=== PATIENT | female | born 1940 | race Caucasian/White ===

== ENCOUNTER 2016-04-13 08:07 | Outpatient (CLI) | payer MEDICARE | END 2016-04-13 08:08 | disposition home or self-care (01) | DX: R10.32 Left lower quadrant pain (principal); R06.00 Dyspnea, unspecified; J98.4 Other disorders of lung; Z87.891 Personal history of nicotine dependence; Z90.710 Acquired absence of both cervix and uterus ==

== ENCOUNTER 2016-04-18 08:25 | Outpatient (CLI) | payer MEDICARE | END 2016-04-18 08:26 | disposition home or self-care (01) | DX: E11.65 Type 2 diabetes mellitus with hyperglycemia (principal); Z79.899 Other long term (current) drug therapy ==

== ENCOUNTER 2016-07-29 09:50 | Outpatient (CLI) | payer MEDICARE | END 2016-07-29 23:59 | DX: E11.65 Type 2 diabetes mellitus with hyperglycemia (principal); Z79.899 Other long term (current) drug therapy; R10.84 Generalized abdominal pain ==

== ENCOUNTER 2016-09-26 07:04 | Day surgery (SDC) | payer MEDICARE ==
[2016-09-26] MEDS ORDERED: LACTATED RINGERS 1,000 ML IV ONE (07:40)
--- NOTE | 2016-09-26 08:49 | HISTORY & PHYSICAL EXAMINATION ---
HPI - History of Present Illness HPI Comment/Other: Visit Type: Initial Consult Primary Provider: Fela Vizcarra Patient is here for colonoscopy for change in bowel habits. Current Meds: CENTRUM SILVER ADULT 50+ ORAL TABS (MULTIPLE VITAMINS-MINERALS) Take 1 tab by mouth daily CALCIUM 600-D TABS (CALCIUM CARBONATE-VITAMIN D TABS) Take 1 tab by mouth daily METOPROLOL TARTRATE 25 MG ORAL TABS (METOPROLOL TARTRATE) Take 1 tab by mouth twice daily LISINOPRIL 20 MG ORAL TABS (LISINOPRIL) Take 1 tab by mouth daily CITALOPRAM HYDROBROMIDE 40 MG ORAL TABS (CITALOPRAM HYDROBROMIDE) Take 1 tab by mouth daily HYDROCHLOROTHIAZIDE 25 MG ORAL TABS (HYDROCHLOROTHIAZIDE) Take 1 tab by mouth daily HUMALOG 100 UNIT/ML SC SOCT (INSULIN LISPRO (HUMAN)) Inject 60 - 70 units sub q daily LANTUS 100 UNIT/ML SC SOLN (INSULIN GLARGINE) Inject 50 - 70 units sub q twice daily Allergies: Past Medical History: Reviewed history from 06/09/2014 and no changes required: hypercalcemia constipation urinary incontinence diabetes type 2 depression increased LFTs Hyperlipidemia Hypertension Shortness of Breath Past Surgical History: Reviewed history from 06/09/2014 and no changes required: hysterectomy Appendectomy Cholecystectomy Total Hip Arthroplasty Tonsillectomy Family History Summary: Reviewed history Last on 06/09/2014 and no changes required:08/12/2016 Mother () - Has Family History of Stroke/CVA - Entered On: 08/12/2016 Social History: Reviewed history and no changes required: Risk Factors: Smoked Tobacco Use: Former smoker Cigarettes: Yes Year quit: 1990 Years Since Last Quit: 26 Smokeless Tobacco Use: Never Passive smoke exposure: no Drug use: no Alcohol use: no Exercise: yes Review of Systems See HPI Physical Exam General: well developed, well nourished, in no acute distress Lungs: clear bilaterally to A & P Heart: regular rate and rhythm, S1, S2 without murmurs, rubs, gallops, or clicks Abdomen: bowel sounds positive; abdomen soft and non-tender without masses, organomegaly, or hernias noted Pulses: pulses normal in all 4 extremities Extremities: no clubbing, cyanosis, edema, or deformity noted with normal full range of motion of all joints Cervical Nodes: no significant adenopathy Psych: alert and cooperative; normal mood and affect; normal attention span and concentration Impression & Recommendations: Problem # 1: Change in bowel habits and abdominal pain Proceed with colonoscopy PMH/PSH - Past Medical History Cardiovascular: positive: Hypertension Respiratory: positive: Sleep apnea Neuro: positive: None Endocrine/Autoimmune: positive: Type 2 diabetes GI: positive: None 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 : positive: None HEENT: positive: Chronic vision loss, Other Psych: positive: Depression Musculoskeletal: positive: Osteoarthritis Derm: positive: None MRSA Hx?: No - Past Surgical History General: positive: Cholecystectomy, Appendectomy Ortho: positive: Hip replacement, Other /RENT AND MISCELLANEOUS REMITTANCE CLERK: positive: Hysterectomy HEENT: positive: Cataracts, Tonsil/Adenoidectomy Social & Family Hx - Social History Does the pt smoke?: No Smoking Status: Never smoker Does the pt drink ETOH?: No Does the pt have substance abuse?: No - POLST Patient has POLST: No POLST Status: Full Code Meds/Allgy - Home Medications Home Medications: Ambulatory Orders Medication Instructions Recorded Confirmed Citalopram Hydrobromide [Celexa] 60 mg PO DAILY 08/30/12 02/12/16 Hydrochlorothiazide 25 mg PO QAM 08/30/12 02/12/16 Insulin Glargine [Lantus Solostar] 45 unit SUBQ BID 08/30/12 02/12/16 Lisinopril 20 mg PO DAILY 08/30/12 02/12/16 Metoprolol Tartrate [Lopressor] 25 mg PO BID 08/30/12 02/12/16 Insulin Lispro [Humalog] 10 unit SQ TID 01/31/13 02/12/16 Multivitamin [Multivitamins] 1 each PO DAILY 02/12/16 02/12/16 Naproxen Sodium [Aleve] 2 PRN 09/26/16 - Allergies Allergies/Adverse Reactions: Allergies Allergy/AdvReac Type Severity Reaction Status Date / Time hydrocodone [Hydrocodone] Allergy Severe hysterical, Verified 08/30/12 14:39 wild Exam - Vital Signs Vital Signs: Vital Signs x48h Temp Pulse Resp BP Pulse Ox 09/26/16 07:16 36.4 C L 80 18 142/67 H 98 Results - Lab Results Other Lab Results: Lab Results x24hrs 09/26/16 Range/Units 07:40 POC Whole Bld Glucose 262 H (70 - 100) mg/dL
[2016-09-26] MEDS ORDERED: fentaNYL 100 MCG/2 ML VIAL IVP ONE (08:53)
[2016-09-26] MEDS ORDERED: MIDAZOLAM 2 MG/2 ML VIAL IVP ONE (08:53)
[2016-09-26 11:01] VITALS: BP 93/46
== END 2016-09-26 07:05 | disposition home or self-care (01) ==
LOC: SDS 07:04
PROVIDERS: ATTEND Surgery
PROC: 0DBP8ZZ Excision of Rectum, Via Natural or Artificial Opening Endoscopic (ICD-10-PCS; 2016-09-26)
PROC: 0DBN8ZZ Excision of Sigmoid Colon, Via Natural or Artificial Opening Endoscopic (ICD-10-PCS; 2016-09-26)
PROC: 0DBM8ZZ Excision of Descending Colon, Via Natural or Artificial Opening Endoscopic (ICD-10-PCS; principal; 2016-09-26 08:15)
DX: R10.9 Unspecified abdominal pain (principal); D12.5 Benign neoplasm of sigmoid colon; D12.4 Benign neoplasm of descending colon; K64.4 Residual hemorrhoidal skin tags; K64.8 Other hemorrhoids; K57.30 Diverticulosis of large intestine without perforation or abscess without bleeding; K62.1 Rectal polyp; E11.9 Type 2 diabetes mellitus without complications; I10 Essential (primary) hypertension; E78.5 Hyperlipidemia, unspecified; Z87.891 Personal history of nicotine dependence; G47.30 Sleep apnea, unspecified
CPT/HCPCS: 45380; 45385; J7120; 88305

== ENCOUNTER 2017-01-19 08:55 | Outpatient (CLI) | payer MEDICARE ==
[2017-01-19 17:58] LABS: BILIRUBIN,TOTAL 0.8 mg/dL (0.2-1.0); CALCIUM 9.9 mg/dL (8.5-10.3); CREATININE 1.1 mg/dL (0.4-1.0); POTASSIUM 4.5 mmol/L (3.5-5.0); TOTAL PROTEIN 7.7 g/dL (6.7-8.2)
[2017-01-19 18:11] LABS: HEMOGLOBIN A1C 1.44 g/dL
== END 2017-01-19 08:56 | disposition home or self-care (01) ==
LOC: LAB.R 08:55
PROVIDERS: ATTEND Physician Assistant Medical
DX: E11.65 Type 2 diabetes mellitus with hyperglycemia (principal); Z79.899 Other long term (current) drug therapy
CPT/HCPCS: 80053; 83036

== ENCOUNTER 2017-04-06 09:41 | Outpatient (CLI) | payer MEDICARE ==
--- NOTE | 2017-04-07 14:02 | XRAY Report ---
DATE OF SERVICE: 04/06/2017 TWO-VIEW CHEST: 04/06/2017 CLINICAL INDICATION: Upper respiratory infection, wheezing, diabetes. COMPARISON: Chest CT 04/13/2016, plain film 12/14/2013. FINDINGS: Frontal and lateral views of the chest demonstrate a normal cardiac silhouette. There are patchy infiltrates in the right upper lobe and right lower lobe, new from previous The lungs appear hyperinf lated, suggestive of air trapping. No effusion or pneumothorax is evident. IMPRESSION: Patchy right upper and right lower lobe infiltrates. Hyperinflation, compatible with ai r trapping. TD: 04/06/2017 11:12
== END 2017-04-06 09:42 | disposition home or self-care (01) ==
LOC: DI 09:41
PROVIDERS: ATTEND Physician Assistant Medical
DX: R91.8 Other nonspecific abnormal finding of lung field (principal)
CPT/HCPCS: 71020

== ENCOUNTER 2017-05-04 12:15 | Outpatient (CLI) | payer MEDICARE ==
[2017-05-04 17:52] LABS: BASOPHILS % (AUTO) 0.6 %; EOSINOPHILS # (AUTO) 0.2 10^3/uL (0.0-0.7); EOSINOPHILS % (AUTO) 2.2 %; LYMPHOCYTES # (AUTO) 1.4 10^3/uL (1.5-3.5); MEAN CORPUSCULAR HEMOGLOBIN 29.3 pg (27.0-31.0); MEAN CORPUSCULAR HGB CONC 33.4 g/dL (32.0-36.0); MEAN CORPUSCULAR VOLUME 87.7 fL (81.0-99.0); MEAN PLATELET VOLUME 10.8 fL (7.9-10.8); MONOCYTES # (AUTO) 0.6 10^3/uL (0.0-1.0); NEUTROPHILS # (AUTO) 5.7 10^3/uL (1.5-6.6); NEUTROPHILS % (AUTO) 71.2 %; PLT - PLATELET COUNT 190 10^3/uL (130-450); RED BLOOD COUNT 5.12 10^6/uL (4.20-5.40); RED CELL DISTRIBUTION WIDTH 13.5 % (12.0-15.0)
[2017-05-04 18:20] LABS: HB2 TOTAL 16.5 g/dL; HEMOGLOBIN A1C 1.34 g/dL; HEMOGLOBIN A1C % 9.6 % (4.6-6.2)
[2017-05-04 18:28] LABS: ALBUMIN 3.8 g/dL (3.2-5.5); ALBUMIN/GLOBULIN RATIO 1.1 (1.0-2.2); BILIRUBIN,TOTAL 0.7 mg/dL (0.2-1.0); CALCIUM 9.3 mg/dL (8.5-10.3); CREATININE 1.3 mg/dL (0.4-1.0); CRP - C-REACTIVE PROTEIN 3.1 mg/dL (0-1.0); TOTAL PROTEIN 7.2 g/dL (6.7-8.2)
== END 2017-05-04 12:16 | disposition home or self-care (01) ==
LOC: LAB.R 12:15
PROVIDERS: ATTEND Physician Assistant Medical
DX: E11.65 Type 2 diabetes mellitus with hyperglycemia (principal); Z79.899 Other long term (current) drug therapy; R10.84 Generalized abdominal pain
CPT/HCPCS: 80053; 83036; 85025; 85651; 86140

== ENCOUNTER 2017-05-17 13:38 | Outpatient (CLI) | payer MEDICARE ==
--- NOTE | 2017-05-17 16:52 | XRAY Report ---
TWO VIEW THORACIC SPINE: 05/17/2017 CLINICAL INDICATION: Chronic back pain. FINDINGS: Frontal and lateral views of the thoracic spine demonstrate mild degenerative disk disease. There is no evidence of compression fracture. No paraspinal hematoma is seen. IMPRESSION: MILD DEGENERATIVE DISK DISEASE. TD: 05/17/2017 16:50
--- NOTE | 2017-05-17 16:54 | XRAY Report ---
THREE VIEW LUMBAR SPINE: 05/17/2017 CLINICAL INDICATION: Low back pain. FINDINGS: AP, lateral, coned down views of the lumbar spine demonstrate degenerative disk and facet disease, worst at L4-L5. There is minimal degenerative anterolisthesis of L3 on L4 and L4 on L5. There is no evidence of compression fracture. Minimal degenerative levoscoliosis is noted. IMPRESSION: MODERATE DEGENERATIVE CHANGES, WITH DEGENERATIVE ANTEROLISTHESIS OF L3 ON L4 AND L4 ON L5. NO EVIDENCE OF FRACTURE. TD: 05/17/2017 16:52
== END 2017-05-17 13:39 | disposition home or self-care (01) ==
LOC: DI 13:38
PROVIDERS: ATTEND Physician Assistant Medical
DX: M51.36 Other intervertebral disc degeneration, lumbar region (principal); M47.896 Other spondylosis, lumbar region; M43.16 Spondylolisthesis, lumbar region; M51.34 Other intervertebral disc degeneration, thoracic region
CPT/HCPCS: 72070; 72100

== ENCOUNTER 2017-08-17 15:44 | Emergency (ER) | payer MEDICARE ==
--- NOTE | 2017-08-17 15:50 | ED Physician Documentation ---
PD HPI NECK PAIN - Stated complaint Stated Complaint: NECK/SHOULDER PX - History obtained from History obtained from: Patient - History of Present Illness Timing - details: Abrupt onset (awoke with pain in neck. No noted injury.), Still present Location: Mid, Lower, Left Quality: Pain, Sharp Associated symptoms: No: Fever, Weakness, Numbness Improves with: Rest Worsened by: Movement, Palpation Contributing factors: No: Lifting, Twisting, Trauma Similar symptoms before: Has not had sx before Recently seen: Not recently seen Review of Systems Constitutional: denies: Fever, Chills Nose: denies: Rhinorrhea / runny nose, Congestion Throat: denies: Sore throat Respiratory: denies: Cough Musculoskeletal: reports: Neck pain. 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 : None HEENT: Chronic vision loss, Other Psych: Depression Musculoskeletal: Osteoarthritis Derm: None - Past Surgical History Past Surgical History: Yes General: Cholecystectomy, Appendectomy Ortho: Hip replacement, Other /FORGE OPERATOR HELPER: Hysterectomy HEENT: Cataracts, Tonsil/Adenoidectomy - Present Medications Home Medications: Ambulatory Orders Medication Instructions Recorded Confirmed Hydrochlorothiazide 25 mg PO QAM 08/30/12 05/17/17 Insulin Glargine [Lantus Solostar] 45 unit SUBQ BID 08/30/12 05/17/17 Lisinopril 20 mg PO DAILY 08/30/12 05/17/17 Metoprolol Tartrate [Lopressor] 25 mg PO BID 08/30/12 05/17/17 Insulin Lispro [Humalog] 10 - 30 unit SQ TID 01/31/13 05/17/17 Multivitamin [Multivitamins] 1 each PO DAILY 02/12/16 05/17/17 Naproxen Sodium [Aleve] 2 tab PO Q6H PRN 09/26/16 05/17/17 Duloxetine HCl [Cymbalta] 60 mg PO DAILY 05/17/17 05/17/17 Methocarbamol [Robaxin] 500 mg PO Q6H PRN #25 tablet 08/17/17 Naproxen 375 mg PO BID #20 tablet 08/17/17 Oxycodone HCl/Acetaminophen 1 each PO Q6H PRN #20 tablet 08/17/17 [Percocet 5-325 mg Tablet] - Allergies Allergies/Adverse Reactions: Allergies Allergy/AdvReac Type Severity Reaction Status Date / Time hydrocodone [Hydrocodone] Allergy Severe hysterical, Verified 08/30/12 14:39 wild - Social History Does the pt smoke?: No Smoking Status: Never smoker Does the pt drink ETOH?: No Does the pt have substance abuse?: No - Immunizations Immunizations are current?: Yes Immunizations: TDAP current <10years - POLST Patient has POLST: No POLST Status: Full Code PD ED PE NORMAL - Vitals Vital signs reviewed: Yes - General General: Alert and oriented X 3, No acute distress, Well developed/nourished - HEENT HEENT: Ears normal, Pharynx benign - Neck Neck: Supple, no meningeal sign, No adenopathy, Other (left lateral neck and shoulder tenderness and pain in trapezius area. ) - Cardiac Cardiac: RRR, No murmur - Respiratory Respiratory: Clear bilaterally - Abdomen Abdomen: Soft, Non tender - Derm Derm: Normal color, Warm and dry, No rash - Neuro Neuro: Alert and oriented X 3, No motor deficit, No sensory deficit, Normal speech Results - Vitals Vitals: Vital Signs - 24 hr 08/17/17 08/17/17 15:48 17:09 Temperature 36 C L 36.2 C L Heart Rate 93 84 Respiratory 18 18 Rate Blood Pressure 130/86 H 110/58 L O2 Saturation 97 94 Oxygen O2 Source Room air PD MEDICAL DECISION MAKING - ED course Complexity details: considered differential (seems muscular. Tender to touch. No rash. ), d/w patient Departure - Departure Disposition: 01 Home, Self Care Clinical Impression: Acute strain of neck muscle Qualifiers: Encounter type: initial encounter Qualified Code(s): S16.1XXA - Strain of muscle, fascia and tendon at neck level, initial encounter Condition: Stable Record reviewed to determine appropriate education?: Yes Instructions: ED Neck Pain No Trauma Follow-Up: Fela Vizcarra PA-C [Primary Care Provider] - Prescriptions: Methocarbamol [Robaxin] 500 mg PO Q6H PRN #25 tablet PRN Reason: Spasms Naproxen 375 mg PO BID #20 tablet Oxycodone HCl/Acetaminophen [Percocet 5-325 mg Tablet] 1 each PO Q6H PRN #20 tablet PRN Reason: Pain Comments: The pain seems musculoskeletal with likely some nerve impingement. Use some naproxen or ibuprofen twice daily. Add Robaxin muscle relaxant and Percocet if needed for pain. Recheck if not improved over the next several days and return if other symptoms develop as well. Discharge Date/Time: 08/17/17 17:09
[2017-08-17] MEDS ORDERED: oxyCOD/ACETAMIN 5 MG/325 MG TABLET PO STA (16:35)
[2017-08-17] MEDS ORDERED: METHOCARBAMOL 500 MG TABLET PO STA (16:36)
[2017-08-17 17:11] VITALS: BP 110/58
== END 2017-08-17 17:09 | disposition home or self-care (01) ==
LOC: ED 15:44
DX: S16.1XXA Strain of muscle, fascia and tendon at neck level, initial encounter (principal); X58.XXXA Exposure to other specified factors, initial encounter; I10 Essential (primary) hypertension; E11.9 Type 2 diabetes mellitus without complications; M19.90 Unspecified osteoarthritis, unspecified site; Z79.4 Long term (current) use of insulin
CPT/HCPCS: 99283; A9270

== ENCOUNTER 2017-08-18 21:38 | Outpatient (CLI) | payer MEDICARE | END 2017-08-18 21:39 | disposition critical access hospital (66) | LOC: EMS 21:38 | PROVIDERS: ATTEND Surgery | DX: R41.0 Disorientation, unspecified (principal); R07.9 Chest pain, unspecified; R53.1 Weakness | CPT/HCPCS: A0425; A0429 ==

== ENCOUNTER 2017-08-18 21:46 | Emergency (ER) | payer MEDICARE ==
[2017-08-18] MEDS ORDERED: SODIUM CHLORIDE 0.9% 1,000 ML IV ONE (21:53)
[2017-08-18 22:06] LABS: BASOPHILS % (AUTO) 0.7 %; HGB - HEMOGLOBIN 14.7 g/dL (12.0-16.0); LYMPHOCYTES % (AUTO) 1.8 %; MEAN CORPUSCULAR HEMOGLOBIN 28.9 pg (27.0-31.0); MEAN CORPUSCULAR HGB CONC 33.2 g/dL (32.0-36.0); MEAN PLATELET VOLUME 9.5 fL (7.9-10.8); MONOCYTES % (AUTO) 4.6 %; NEUTROPHILS % (AUTO) 92.9 %; PLT - PLATELET COUNT 182 10^3/uL (130-450); RED BLOOD COUNT 5.07 10^6/uL (4.20-5.40); RED CELL DISTRIBUTION WIDTH 13.1 % (12.0-15.0)
[2017-08-18 22:11] LABS: ABNORMAL LYMPHS % (MANUAL) 0 %
[2017-08-18 22:20] LABS: INR 1.1 (0.8-1.2); PT - PROTHROMBIN TIME 12.5 secs (9.9-12.6)
[2017-08-18] MEDS ORDERED: IOPAMIDOL-300 100 ML VIAL ONE (22:20)
[2017-08-18 22:26] LABS: CALCIUM 9.8 mg/dL (8.5-10.3); CREATININE 1.1 mg/dL (0.4-1.0)
[2017-08-18 22:35] LABS: BAND NEUTROPHILS % (MANUAL) 16 %; DIFFERENTIAL COMMENT MANUAL DIFFERENTIAL; LYMPHOCYTES # (MANUAL) 0.2 10^3/uL (1.5-3.5); LYMPHOCYTES % (MANUAL) 1 %; MONOCYTES # (MANUAL) 0.3 10^3/uL (0.0-1.0); NEUTROPHILS # (MANUAL) 14.6 10^3/uL (1.5-6.6); NEUTROPHILS % (MANUAL) 81 %; PLATELET ESTIMATE, MANUAL NORMAL (130-450,000) (NORMAL); PLATELET MORPHOLOGY NORMAL APPEARANCE (NORMAL); RBC MORPHOLOGY (MULTIPLE) NORMAL APPEARANCE (NORMAL)
--- NOTE | 2017-08-18 22:44 | CT Report ---
EXAM: CT HEAD EXAM DATE: 08/18/2017 10:33 PM. CLINICAL HISTORY: L sided weakness. COMPARISON: Prior head CT 12/14/2013. TECHNIQUE: Multiaxial CT images were obtained from the foramen magnum to the vertex. Reformats: Coron al. IV contrast: None. In accordance with CT protocol optimization, one or more of the following dose reduction techniques w ere utilized for this exam: automated exposure control, adjustment of mA and/or KV based on patient s ize, or use of iterative reconstructive technique. FINDINGS: Parenchyma: No intraparenchymal hemorrhage. No evidence of mass, midline shift, or CT findings of inf arction. Emmanuel-white differentiation is distinct. Extraaxial Spaces: Normal for age. No subdural or epidural collections identified. Ventricles: Normal in size and position. Sinuses and Orbits: Imaged paranasal sinuses, orbits, and mastoids show no significant abnormality. Bones: No evidence of fracture or calvarial defect. Other: None. IMPRESSION: Normal head CT. [facility] The call report notification system was initiated by Dr. Alvin Romero at 22:39 hrs on 08/18/17. The above findings were discussed with Dr. Daugherty by Dr. Alvin Romero at 22:43 hrs on 08/18/17. Referring Provider Line: [phone] SITE ID: [id number]
[2017-08-19] MEDS ORDERED: SODIUM CHLORIDE 0.9% 1,000 ML IV ONE (00:02)
[2017-08-19] MEDS ORDERED: PIPERACILLIN/TAZOBACTAM 3.375 GM in SODIUM CHLORIDE 0.9% MINIBAG 100 ML IV STA (00:30)
[2017-08-19 00:31] LABS: BILIRUBIN,URINE NEGATIVE (NEGATIVE); GLUCOSE, URINE (UA) >=1000 mg/dL (NEGATIVE); KETONES,URINE (UA) 40 mg/dL (NEGATIVE); LEUKOCYTE ESTERASE, URINE NEGATIVE (NEGATIVE); NITRITE,URINE NEGATIVE (NEGATIVE); OCCULT BLOOD,URINE LARGE (NEGATIVE); PH,URINE 5.5 PH (5.0-7.5); PROTEIN,URINE 100 mg/dL (NEGATIVE); UROBILINOGEN,URINE 0.2 (NORMAL) E.U./dL (NORMAL)
[2017-08-19 00:33] LABS: CLARITY,URINE CLEAR (CLEAR)
[2017-08-19 00:38] LABS: BACTERIA,URINE Rare /HPF (None Seen); CASTS, URINE 11-25 Hyaline Casts /LPF; MUCUS,URINE Marked Strands; SQUAMOUS EPITHELIAL CELL,UR MOD Squamous (<= Few)
[2017-08-19] MEDS ORDERED: ACETAMINOPHEN 1,000 MG/100 ML 100 ML IV STA (00:41)
[2017-08-19] MEDS ORDERED: ACYCLOVIR INJ 500 MG in SODIUM CHLORIDE 0.9% 250 ML IV STA (01:02)
[2017-08-19] MEDS ORDERED: cefTRIAXone 2 GM VIAL IVP STA (01:02)
[2017-08-19] MEDS ORDERED: VANCOMYCIN INJ 2.5 GM in SODIUM CHLORIDE 0.9% 500 ML IV STA (01:03)
[2017-08-19] MEDS ORDERED: IOPAMIDOL-300 100 ML VIAL IVP ONE (01:05)
[2017-08-19 01:12] LABS: ALBUMIN 3.1 g/dL (3.2-5.5); ALBUMIN/GLOBULIN RATIO 0.8 (1.0-2.2); ALKALINE PHOSPHATASE 142 IU/L (42-121); ALT ALANINE AMINOTRANSFERASE 38 IU/L (10-60); AST ASPARTATE AMINOTRANSFERASE 34 IU/L (10-42); BILIRUBIN,TOTAL 1.7 mg/dL (0.2-1.0); BUN - BLOOD UREA NITROGEN 24 mg/dL (6-20); CALCIUM 9.2 mg/dL (8.5-10.3); CARBON DIOXIDE - CO2 22 mmol/L (21-32); CHLORIDE 92 mmol/L (101-111); GFR - MDRD 54 (>89); GLUCOSE 342 mg/dL (70-100); SODIUM 128 mmol/L (135-145); TOTAL PROTEIN 6.8 g/dL (6.7-8.2)
[2017-08-19 01:13] LABS: LIPASE < 10 U/L (22-51)
--- NOTE | 2017-08-19 01:19 | CT Preliminary Report ---
Exam: CT ABDOMEN W/O IMPRESSION: Atherosclerotic disease. No evidence of aneurysm. Stable peritoneal calcifications from 0 12/21/2015. [facility] SITE ID: [id number]
--- NOTE | 2017-08-19 01:19 | CT Report ---
EXAM: CT ABDOMEN EXAM DATE: 08/19/2017 12:07 AM. CLINICAL HISTORY: Pain COMPARISON: 12/21/2015. TECHNIQUE: Routine helical CT imaging was performed through the abdomen. IV contrast: None Enteric c ontrast: No. Reconstruction: Coronal and sagittal. In accordance with CT protocol optimization, one or more of the following dose reduction techniques w ere utilized for this exam: automated exposure control, adjustment of mA and/or KV based on patient s ize, or use of iterative reconstructive technique. FINDINGS: Lung Bases: Please see separate CT Liver: Incidental calcification in the medial left lobe. Gallbladder/Bile Ducts: Changes of cholecystectomy. No biliary dilatation. Spleen: Normal. Pancreas: Normal. Adrenal Glands: Normal. Kidneys: Contrast excretion from CT angiogram of the head and neck of the same day. Peritoneal Cavity/Bowel: Peritoneal calcifications appear stable. No bowel dilatation, free gas, or f ree fluid. The appendix is well visualized and normal. Vasculature: Atherosclerotic calcification. No aneurysm. Bones: No significant abnormality. Other: None. IMPRESSION: Atherosclerotic disease. No evidence of aneurysm. Stable peritoneal calcifications from 0 12/21/2015. [facility] Referring Provider Line: [phone] SITE ID: [id number]
--- NOTE | 2017-08-19 01:23 | CT Preliminary Report ---
Exam: CT CHEST W/O IMPRESSION: Stable pulmonary nodules from 04/13/2016. Mild atherosclerotic calcifications. Farzaneh [facility] SITE ID: [id number]
--- NOTE | 2017-08-19 01:23 | CT Report ---
EXAM: CT CHEST EXAM DATE: 08/19/2017 12:11 AM. CLINICAL HISTORY: Chest pain abd pain L sided weakness. COMPARISONS: 04/13/2016. TECHNIQUE: Routine helical CT imaging was performed through the chest. IV contrast: None. Reconstruct ions: Coronal and sagittal. In accordance with CT protocol optimization, one or more of the following dose reduction techniques w ere utilized for this exam: automated exposure control, adjustment of mA and/or KV based on patient s ize, or use of iterative reconstructive technique. FINDINGS: Lungs/Pleura: Stable pulmonary nodules, measuring up to 6 mm in the right middle lobe and left lower lobe. No focal consolidation, effusion, or pneumothorax. Mediastinum: Mild atherosclerotic calcification. No adenopathy. Bones: Degenerative changes. Visualized Abdomen: Please see separate CT. Other: None. IMPRESSION: Stable pulmonary nodules from 04/13/2016. Mild atherosclerotic calcifications. No aneurys mJuice [facility] Referring Provider Line: [phone] SITE ID: [id number]
--- NOTE | 2017-08-19 01:42 | ED Physician Documentation ---
PD HPI ALTERED MENTAL STATUS - Stated complaint Stated Complaint: CP/ABD PAIN - Chief complaint Chief Complaint: Cardiac - History obtained from History obtained from: Family, EMS - History of Present Illness Timing - onset: Yesterday Timing - details: Gradual onset, Still present Quality / character: Less responsive, Confused Associated symptoms: Fever, Focal weakness Contributing factors: Cancer, Recent illness. 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 According to ems, family and previous notes patient was seen in the emergency department two days prior for neck pain. Patient was sent home with some medications. When the patient's son's came to visit her today patient was found to be altered. She was last seen normal the day before by the neighbors who also might have given her edible thc. EMS was called. While enroute patient had some possible facial droop and continued to complain of pain and weakness. Imaging was empirically ordered. My initial evaluation of the patient occurred after imaging. Upon my initial evaluation patient was slightly altered but was alert and oriented with no focal deficits. Patient was warm to touch, was tachypneaic and tachycardic. 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 : None HEENT: Chronic vision loss, Other Psych: Depression Musculoskeletal: Osteoarthritis Derm: None - Past Surgical History Past Surgical History: Yes General: Cholecystectomy, Appendectomy Ortho: Hip replacement, Other /[employer]MENT: Hysterectomy HEENT: Cataracts, Tonsil/Adenoidectomy - Present Medications Home Medications: Ambulatory Orders Medication Instructions Recorded Confirmed Hydrochlorothiazide 25 mg PO QAM 08/30/12 05/17/17 Insulin Glargine [Lantus Solostar] 45 unit SUBQ BID 08/30/12 05/17/17 Lisinopril 20 mg PO DAILY 08/30/12 05/17/17 Metoprolol Tartrate [Lopressor] 25 mg PO BID 08/30/12 05/17/17 Insulin Lispro [Humalog] 10 - 30 unit SQ TID 01/31/13 05/17/17 Multivitamin [Multivitamins] 1 each PO DAILY 02/12/16 05/17/17 Naproxen Sodium [Aleve] 2 tab PO Q6H PRN 09/26/16 05/17/17 Duloxetine HCl [Cymbalta] 60 mg PO DAILY 05/17/17 05/17/17 Methocarbamol [Robaxin] 500 mg PO Q6H PRN #25 tablet 08/17/17 Naproxen 375 mg PO BID #20 tablet 08/17/17 Oxycodone HCl/Acetaminophen 1 each PO Q6H PRN #20 tablet 08/17/17 [Percocet 5-325 mg Tablet] - Allergies Allergies/Adverse Reactions: Allergies Allergy/AdvReac Type Severity Reaction Status Date / Time hydrocodone [Hydrocodone] Allergy Severe hysterical, Verified 08/30/12 14:39 wild - Social History Does the pt smoke?: No Smoking Status: Never smoker Does the pt drink ETOH?: No Does the pt have substance abuse?: No - Immunizations Immunizations are current?: Yes Immunizations: TDAP current <10years - POLST Patient has POLST: No POLST Status: Full Code PD ED PE NORMAL - Vitals Vital signs reviewed: Yes - HEENT HEENT: Atraumatic - Neuro Eye Opening: Spontaneous Motor: Obeys Commands Verbal: Confused GCS Score: 14 PD ED PE EXPANDED - HEENT HEENT: Pupils unequal, Dry mucous membranes. No: Gaze palsy, Nasal congestion - Cardiac Cardiac: Tachy - Respiratory Respiratory: Retractions, Decreased breath sounds - Abdomen Abdomen: Tender to palpation, Other (obese). No: Rebound, Guarding - Derm Derm: Warm and dry. No: Rash - Neuro Neuro: Alert and Oriented X 3, Confused, Normal motor, Normal Sensation, Normal Speech, CNII-XII intact. No: Weakness, Dyscongugate gaze, Nystagmus Results - Vitals Vitals: Vital Signs - 24 hr 08/18/17 08/18/17 08/19/17 21:50 23:32 00:01 Temperature 36.0 C L 37.8 C H Heart Rate 115 H 102 H Respiratory 36 H 25 H Rate Blood Pressure 169/84 H 154/69 H O2 Saturation 98 100 08/19/17 00:26 Temperature Heart Rate 104 H Respiratory 22 Rate Blood Pressure 156/82 H O2 Saturation 100 Oxygen O2 Source Room air - EKG (time done) 7239 Rate: Rate (enter#) (111) Rhythm: Sinus tachycardia [place]: Normal Intervals: Normal MT Ischemia: Q waves, Other (mild st segment elevation in III) Other comments: Other comments (st elevation unchanged from 2014) Compare to prior EKG: Unchanged from prior EKG 7123 Rate: Rate (enter#) (101) Rhythm: Sinus tachycardia [place]: Normal Ischemia: Q waves Compare to prior EKG: Unchanged from prior EKG - Labs Labs: Laboratory Tests 08/18/17 08/18/17 08/18/17 21:55 21:55 21:55 WBC 15.0 H RBC 5.07 Hgb 14.7 Hct 44.1 MCV 87.0 MCH 28.9 MCHC 33.2 RDW 13.1 Plt Count 182 MPV 9.5 Neut # Not Reportable Lymph # Not Reportable [place] # Not Reportable Eos # Not Reportable Baso # Not Reportable Absolute Nucleated RBC Not Reportable Total Counted 100 Band Neuts % (Manual) 16 H Abnorm Lymph % (Manual) 0 Nucleated RBC % Not Reportable Neutrophils # (Manual) 14.6 H Lymphocytes # (Manual) 0.2 L Monocytes # (Manual) 0.3 Eosinophils # (Manual) 0.0 Basophils # (Manual) 0.0 Differential Comment MANUAL DIFFERENTIAL Platelet Estimate NORMAL (130-450,000) Platelet Morphology NORMAL APPEARANCE RBC Morph Micro Appear NORMAL APPEARANCE PT INR APTT Sodium 128 L Potassium 4.3 Chloride 91 L Carbon Dioxide 23 Anion Gap 14.0 H BUN 24 H Creatinine 1.1 H Estimated GFR (MDRD) 48 L Glucose 369 H Lactic Acid Calcium 9.8 Total Bilirubin AST ALT Alkaline Phosphatase Troponin I 0.43 B-Natriuretic Peptide Total Protein Albumin Globulin Albumin/Globulin Ratio Lipase Urine Color Urine Clarity Urine pH Ur Specific [place] Urine Protein Urine Glucose (UA) Urine Ketones Urine Occult Blood Urine Nitrite Urine Bilirubin Urine Urobilinogen Ur Leukocyte Esterase Urine RBC Urine WBC Ur Squamous Epith Cells Urine Bacteria Urine Casts Urine Mucus Ur Microscopic Review Urine Culture Comments 08/18/17 08/18/17 08/18/17 21:55 23:55 23:55 WBC RBC Hgb Hct MCV MCH MCHC RDW Plt Count MPV Neut # Lymph # [place] # Eos # Baso # Absolute Nucleated RBC Total Counted Band Neuts % (Manual) Abnorm Lymph % (Manual) Nucleated RBC % Neutrophils # (Manual) Lymphocytes # (Manual) Monocytes # (Manual) Eosinophils # (Manual) Basophils # (Manual) Differential Comment Platelet Estimate Platelet Morphology RBC Morph Micro Appear PT 12.5 INR 1.1 APTT 24.4 L Sodium Potassium Chloride Carbon Dioxide Anion Gap BUN Creatinine Estimated GFR (MDRD) Glucose Lactic Acid 1.7 Calcium Total Bilirubin AST ALT Alkaline Phosphatase Troponin I 0.50 H* B-Natriuretic Peptide Total Protein Albumin Globulin Albumin/Globulin Ratio Lipase Urine Color Urine Clarity Urine pH Ur Specific [place] Urine Protein Urine Glucose (UA) Urine Ketones Urine Occult Blood Urine Nitrite Urine Bilirubin Urine Urobilinogen Ur Leukocyte Esterase Urine RBC Urine WBC Ur Squamous Epith Cells Urine Bacteria Urine Casts Urine Mucus Ur Microscopic Review Urine Culture Comments 08/19/17 08/19/17 08/19/17 00:22 00:34 01:00 WBC RBC Hgb Hct MCV MCH MCHC RDW Plt Count MPV Neut # Lymph # [place] # Eos # Baso # Absolute Nucleated RBC Total Counted Band Neuts % (Manual) Abnorm Lymph % (Manual) Nucleated RBC % Neutrophils # (Manual) Lymphocytes # (Manual) Monocytes # (Manual) Eosinophils # (Manual) Basophils # (Manual) Differential Comment Platelet Estimate Platelet Morphology RBC Morph Micro Appear PT INR APTT Sodium 128 L Potassium 4.3 Chloride 92 L Carbon Dioxide 22 Anion Gap 14.0 H BUN 24 H Creatinine 1.0 Estimated GFR (MDRD) 54 L Glucose 342 H Lactic Acid Calcium 9.2 Total Bilirubin 1.7 H AST 34 ALT 38 Alkaline Phosphatase 142 H Troponin I B-Natriuretic Peptide 353 H Total Protein 6.8 Albumin 3.1 L Globulin 3.7 Albumin/Globulin Ratio 0.8 L Lipase < 10 L Urine Color YELLOW Urine Clarity CLEAR Urine pH 5.5 Ur Specific [place] 1.020 Urine Protein 100 H Urine Glucose (UA) >=1000 H Urine Ketones 40 H Urine Occult Blood LARGE H Urine Nitrite NEGATIVE Urine Bilirubin NEGATIVE Urine Urobilinogen 0.2 (NORMAL) Ur Leukocyte Esterase NEGATIVE Urine RBC 11-25 H Urine WBC 0-3 Ur Squamous Epith Cells MOD Squamous H Urine Bacteria Rare Urine Casts 11-25 Hyaline Casts Urine Mucus Marked Strands Ur Microscopic Review INDICATED Urine Culture Comments NOT INDICATED - Rads (name of study) ct head Radiology: Final report received (normal) ct angio chest Radiology: Final report received (no dissection, no pe) ct abd pelvis Radiology: Final report received (no acute abno) ct angio head and neck Radiology: Final report received (normal) PD MEDICAL DECISION MAKING - ED course Complexity details: reviewed old records, reviewed results, re-evaluated patient , considered differential, d/w patient, d/w family, d/w medical cost consultant ED course: Patient was seen and examined at bedside. Patient was quickly evaluated by another physician and imaging was ordered for risk of cva. I evaluated the patient when she come back from imaging. ekg had been performed and there were borderline ekg elevations in lead III but they were unchanged from previous. Patient was tachycardic and warm to the touch. Patient had a leukocytosis and a bandemia. Cultures were ordered as well as lactic acid. and urine was collected. Patient was empirically started on zosyn and IV fluids. Patient's repeat ekg was performed and was unchanged but patient's troponin was elevated from 0.43 to 0.5. Likely secondary to infection and increased cardiac workload. Patient required a higher level of care. Case was discussed eventually with Dr. Burnett at [facility] in [place]. he recommended coverage for meningitis but to hold off on heparin drip at this point. Vanco, rocephin and acyclovir were added. Patient had responded well to the therapy and stated that she was feeling much better. An attempt at LP was not performed based on patient's body habitus and it would be performed and [facility]. Arrangements were made for transfer and patient was transferred in stable condition. Departure - Departure Disposition: 02 Transfer Acute Care Hosp Clinical Impression: Bandemia, NSTEMI (non-ST elevated myocardial infarction) Condition: Stable
[2017-08-19] MEDS ORDERED: VANCOMYCIN 1 GM VIAL ONE (01:49)
--- NOTE | 2017-08-19 02:09 | CT Report ---
EXAM: PLEASE LINK THIS TO EXAM 11/NUMBER [id number] EXAM DATE: 08/19/2017 01:00 AM. CLINICAL HISTORY: L sided weakness. COMPARISON: None. TECHNIQUE: In accordance with CT protocol optimization, one or more of the following dose reduction techniques w ere utilized for this exam: automated exposure control, adjustment of mA and/or KV based on patient s ize, or use of iterative reconstructive technique. FINDINGS: IMPRESSION: RAD[facility] Referring Provider Line: [phone] SITE ID: [id number]
--- NOTE | 2017-08-19 02:09 | CT Preliminary Report ---
Exam: CT NECK ANGIO IMPRESSION: 1. No acute interval change since the brain CT from earlier today. 2. No abnormal brain parenchymal enhancement. 3. Patent dural venous sinuses. 4. Patent intracranial and extracranial arteries without evidence of aneurysm, AVM, or critical steno sis. RADIA SITE ID: [id number]
--- NOTE | 2017-08-19 02:16 | CT Report ---
EXAM: CT ANGIOGRAM HEAD AND NECK CT SCAN HEAD WITHOUT AND WITH CONTRAST EXAM DATE:08/19/2017 01:01 AM. CLINICAL HISTORY:Left-sided weakness. COMPARISON:Brain CT from earlier today. TECHNIQUE: Routine axial helical CTA imaging was performed from the aortic arch through the [place]. Routine axial CT imaging of the head was performed prior to and following contrast administr ation. Reconstructions: Routine multiplanar 3D MIP reconstructions. IV contrast: 80 mL Isovue 300. NASCET Criteria are used for stenosis measurements. In accordance with CT protocol optimization, one or more of the following dose reduction techniques w ere utilized for this exam: automated exposure control, adjustment of mA and/or KV based on patient s ize, or use of iterative reconstructive technique. FINDINGS: CT Scan Head: On the noncontrast brain CT images, no acute interval change has occurred since the brain CT from [facility] today. No abnormal brain parenchymal enhancement is appreciated on postcontrast images. CT Angiogram Extracranial Circulation: Mild calcified plaque is noted at the aortic arch. No high-grade stenosis of the great vessel origins is seen. Right Carotid: The common, internal, and external carotid arteries are patent. Mild calcified plaque is noted at the carotid bifurcation without hemodynamically significant stenosis. Left Carotid: The common, internal, and external carotid arteries are patent. Mild noncalcified plaqu e is noted at the carotid bifurcation without hemodynamically significant stenosis. Vertebrals: The vertebral artery origins are patent. The vertebral arteries are codominant and demons trate no hemodynamically significant stenosis in their cervical courses. CT Angiogram Intracranial Circulation: The internal carotid arteries are patent from the superior cervical to the supraclinoid portions. The re is mild calcified plaque in the right carotid siphon without high-grade stenosis. The bilateral A1 , A2, M1, and m2 segments are patent. In the posterior circulation, the bilateral V4 segments are patent. There is a right AICA/PICA varian t. The left PICA is well demonstrated. The basilar artery is widely patent throughout its course to t he terminus. There is normal contrast opacification in the superior cerebellar and posterior cerebral arteries. Posterior communicating arteries are not seen. The dural venous sinuses are patent. Other: The visualized upper lungs are clear. The airway is patent. Moderate degenerative changes are present throughout the cervical spine. No acute abnormality is seen in the soft tissues of the neck. IMPRESSION: 1. No acute interval change since the brain CT from earlier today. 2. No abnormal brain parenchymal enhancement. 3. Patent dural venous sinuses. 4. Patent intracranial and extracranial arteries without evidence of aneurysm, AVM, or critical steno sis. RADIA Referring Provider Line: [phone] SITE ID: [id number]
[2017-08-19 02:46] VITALS: BP 119/53
== END 2017-08-19 02:51 | disposition short-term general hospital (02) ==
LOC: ED 21:46
DX: I21.4 Non-ST elevation (NSTEMI) myocardial infarction (principal); D72.825 Bandemia; C43.9 Malignant melanoma of skin, unspecified; I10 Essential (primary) hypertension; E11.9 Type 2 diabetes mellitus without complications; Z79.4 Long term (current) use of insulin; M19.90 Unspecified osteoarthritis, unspecified site
CPT/HCPCS: 36415; 51702; 70450; 70496; 70498; 71250; 74150; 80048; 80053; 81001; 83605; 83690; 83880; 84484; 85025; 85610; 85730; 87040; 87181; 93005; 96361; 96365; 96367; 96368; 96375; 99285; J0131; J0133; J3370; Q9967; 80074; 81003; 86803; 87086; 87340; 87389

== ENCOUNTER 2017-08-19 02:38 | Outpatient (CLI) | payer MEDICARE | END 2017-08-19 02:39 | disposition short-term general hospital (02) | LOC: EMS 02:38 | PROVIDERS: ATTEND Surgery | DX: D72.825 Bandemia (principal); R79.89 Other specified abnormal findings of blood chemistry | CPT/HCPCS: A0425; A0426 ==

== ENCOUNTER 2017-08-31 20:30 | Outpatient (CLI) | payer MEDICARE ==
[2017-08-31 22:45] LABS: BASOPHILS % (AUTO) 0.4 %; EOSINOPHILS # (AUTO) 0.1 10^3/uL (0.0-0.7); EOSINOPHILS % (AUTO) 1.1 %; HGB - HEMOGLOBIN 11.4 g/dL (12.0-16.0); LYMPHOCYTES # (AUTO) 1.1 10^3/uL (1.5-3.5); MEAN CORPUSCULAR HEMOGLOBIN 28.9 pg (27.0-31.0); MEAN CORPUSCULAR HGB CONC 32.9 g/dL (32.0-36.0); MEAN CORPUSCULAR VOLUME 87.8 fL (81.0-99.0); MEAN PLATELET VOLUME 9.4 fL (7.9-10.8); MONOCYTES # (AUTO) 0.8 10^3/uL (0.0-1.0); MONOCYTES % (AUTO) 7.5 %; NEUTROPHILS # (AUTO) 8.9 10^3/uL (1.5-6.6); PLT - PLATELET COUNT 325 10^3/uL (130-450); RED BLOOD COUNT 3.94 10^6/uL (4.20-5.40); RED CELL DISTRIBUTION WIDTH 13.5 % (12.0-15.0)
[2017-08-31 23:03] LABS: ALBUMIN 3.1 g/dL (3.2-5.5); ALBUMIN/GLOBULIN RATIO 0.8 (1.0-2.2); BILIRUBIN,TOTAL 0.4 mg/dL (0.2-1.0); CALCIUM 9.3 mg/dL (8.5-10.3); TOTAL PROTEIN 7.2 g/dL (6.7-8.2)
== END 2017-08-31 20:31 | disposition home or self-care (01) ==
LOC: LAB.R 20:30
DX: G06.2 Extradural and subdural abscess, unspecified (principal); R78.81 Bacteremia
CPT/HCPCS: 80053; 85025

== ENCOUNTER 2017-09-05 08:00 | Outpatient (CLI) | payer MEDICARE ==
[2017-09-05 20:28] LABS: CALCIUM 9.1 mg/dL (8.5-10.3); CREATININE 1.1 mg/dL (0.4-1.0)
== END 2017-09-05 08:01 | disposition home or self-care (01) ==
LOC: LAB.R 08:00
DX: N17.9 Acute kidney failure, unspecified (principal)
CPT/HCPCS: 80048

== ENCOUNTER 2017-09-12 08:00 | Outpatient (CLI) | payer MEDICARE ==
[2017-09-12 22:01] LABS: BASOPHILS # (AUTO) 0.1 10^3/uL (0.0-0.1); BASOPHILS % (AUTO) 1.3 %; EOSINOPHILS # (AUTO) 0.3 10^3/uL (0.0-0.7); EOSINOPHILS % (AUTO) 5.8 %; HGB - HEMOGLOBIN 9.9 g/dL (12.0-16.0); LYMPHOCYTES % (AUTO) 18.8 %; MEAN CORPUSCULAR HEMOGLOBIN 29.3 pg (27.0-31.0); MEAN CORPUSCULAR HGB CONC 33.8 g/dL (32.0-36.0); MEAN CORPUSCULAR VOLUME 86.7 fL (81.0-99.0); MEAN PLATELET VOLUME 9.5 fL (7.9-10.8); MONOCYTES # (AUTO) 0.6 10^3/uL (0.0-1.0); MONOCYTES % (AUTO) 12.1 %; NEUTROPHILS # (AUTO) 3.2 10^3/uL (1.5-6.6); PLT - PLATELET COUNT 228 10^3/uL (130-450); RED BLOOD COUNT 3.39 10^6/uL (4.20-5.40); RED CELL DISTRIBUTION WIDTH 13.7 % (12.0-15.0); WHITE BLOOD COUNT 5.2 x10^3/uL (4.8-10.8)
== END 2017-09-12 08:01 | disposition home or self-care (01) ==
LOC: LAB.R 08:00
DX: G06.2 Extradural and subdural abscess, unspecified (principal)
CPT/HCPCS: 85025

== ENCOUNTER 2017-09-12 08:00 | Outpatient (CLI) | payer MEDICARE ==
[2017-09-13 01:35] LABS: BILIRUBIN,URINE NEGATIVE (NEGATIVE); GLUCOSE, URINE (UA) NEGATIVE (NEGATIVE); KETONES,URINE (UA) NEGATIVE (NEGATIVE); LEUKOCYTE ESTERASE, URINE NEGATIVE (NEGATIVE); NITRITE,URINE NEGATIVE (NEGATIVE); OCCULT BLOOD,URINE NEGATIVE (NEGATIVE); PROTEIN,URINE 30 mg/dL (NEGATIVE); UROBILINOGEN,URINE 0.2 (NORMAL) E.U./dL (NORMAL)
[2017-09-13 01:40] LABS: CLARITY,URINE CLEAR (CLEAR)
[2017-09-13 01:43] LABS: BACTERIA,URINE Rare /HPF (None Seen); RBC,URINE 0-5 /HPF (0-5); SQUAMOUS EPITHELIAL CELL,UR FEW Squamous (<= Few); YEAST,URINE PRESENT
== END 2017-09-12 23:59 ==
LOC: LAB 08:00
DX: R78.81 Bacteremia (principal); G06.2 Extradural and subdural abscess, unspecified
CPT/HCPCS: 81001; 81003; 85025

== ENCOUNTER 2017-10-02 10:55 | Outpatient (CLI) | END 2017-10-02 10:56 | disposition home or self-care (01) ==

== ENCOUNTER 2017-10-03 13:20 | Outpatient (CLI) | payer MEDICARE | END 2017-10-03 13:21 | disposition home or self-care (01) | LOC: LAB.R 13:20 | DX: R79.82 Elevated C-reactive protein (CRP) (principal); R70.0 Elevated erythrocyte sedimentation rate | CPT/HCPCS: 85651; 86140 ==

== ENCOUNTER 2017-11-30 15:02 | Outpatient (CLI) | payer MEDICARE ==
[2017-11-30 17:02] LABS: BASOPHILS # (AUTO) 0.1 10^3/uL (0.0-0.1); BASOPHILS % (AUTO) 0.9 %; EOSINOPHILS # (AUTO) 0.2 10^3/uL (0.0-0.7); HGB - HEMOGLOBIN 12.9 g/dL (12.0-16.0); LYMPHOCYTES # (AUTO) 1.5 10^3/uL (1.5-3.5); LYMPHOCYTES % (AUTO) 19.3 %; MEAN CORPUSCULAR HEMOGLOBIN 28.5 pg (27.0-31.0); MEAN CORPUSCULAR HGB CONC 33.4 g/dL (32.0-36.0); MEAN CORPUSCULAR VOLUME 85.2 fL (81.0-99.0); MEAN PLATELET VOLUME 10.8 fL (7.9-10.8); MONOCYTES # (AUTO) 0.7 10^3/uL (0.0-1.0); MONOCYTES % (AUTO) 8.3 %; NEUTROPHILS # (AUTO) 5.4 10^3/uL (1.5-6.6); NEUTROPHILS % (AUTO) 68.5 %; PLT - PLATELET COUNT 240 10^3/uL (130-450); RED BLOOD COUNT 4.55 10^6/uL (4.20-5.40); RED CELL DISTRIBUTION WIDTH 14.4 % (12.0-15.0); WHITE BLOOD COUNT 7.9 x10^3/uL (4.8-10.8)
[2017-11-30 17:14] LABS: ALBUMIN 3.9 g/dL (3.2-5.5); ALBUMIN/GLOBULIN RATIO 1.1 (1.0-2.2); BILIRUBIN,TOTAL 0.7 mg/dL (0.2-1.0); CALCIUM 9.7 mg/dL (8.5-10.3); CREATININE 1.2 mg/dL (0.4-1.0); TOTAL PROTEIN 7.4 g/dL (6.7-8.2)
[2017-11-30 20:53] LABS: HB2 TOTAL 13.7 g/dL; HEMOGLOBIN A1C 0.81 g/dL; HEMOGLOBIN A1C % 7.6 % (4.6-6.2)
== END 2017-11-30 15:03 | disposition home or self-care (01) ==
LOC: LAB.R 15:02
PROVIDERS: ATTEND Physician Assistant Medical
DX: R30.0 Dysuria (principal); F41.9 Anxiety disorder, unspecified; F32.9 Major depressive disorder, single episode, unspecified; Z79.899 Other long term (current) drug therapy; E11.65 Type 2 diabetes mellitus with hyperglycemia
CPT/HCPCS: 80053; 83036; 84443; 85025; 87086

== ENCOUNTER 2017-12-26 13:03 | Outpatient (CLI) | payer MEDICARE | END 2017-12-26 13:04 | disposition home or self-care (01) | LOC: RT 13:03 | PROVIDERS: ATTEND Physician Assistant Medical | DX: R06.00 Dyspnea, unspecified (principal) | CPT/HCPCS: 94010 ==

== ENCOUNTER 2018-02-06 14:22 | Outpatient (CLI) | payer MEDICARE ==
[2018-02-06 15:47] LABS: BASOPHILS # (AUTO) 0.1 10^3/uL (0.0-0.1); EOSINOPHILS # (AUTO) 0.2 10^3/uL (0.0-0.7); EOSINOPHILS % (AUTO) 3.1 %; HGB - HEMOGLOBIN 12.9 g/dL (12.0-16.0); LYMPHOCYTES # (AUTO) 1.2 10^3/uL (1.5-3.5); LYMPHOCYTES % (AUTO) 16.3 %; MEAN CORPUSCULAR HEMOGLOBIN 28.9 pg (27.0-31.0); MEAN CORPUSCULAR HGB CONC 33.9 g/dL (32.0-36.0); MEAN CORPUSCULAR VOLUME 85.3 fL (81.0-99.0); MEAN PLATELET VOLUME 11.5 fL (7.9-10.8); MONOCYTES # (AUTO) 0.5 10^3/uL (0.0-1.0); NEUTROPHILS # (AUTO) 5.3 10^3/uL (1.5-6.6); NEUTROPHILS % (AUTO) 72.6 %; PLT - PLATELET COUNT 221 10^3/uL (130-450); RED BLOOD COUNT 4.47 10^6/uL (4.20-5.40); RED CELL DISTRIBUTION WIDTH 13.5 % (12.0-15.0); WHITE BLOOD COUNT 7.3 x10^3/uL (4.8-10.8)
[2018-02-06 15:56] LABS: ALBUMIN 3.8 g/dL (3.2-5.5); ALBUMIN/GLOBULIN RATIO 1.1 (1.0-2.2); BILIRUBIN,TOTAL 0.8 mg/dL (0.2-1.0); CALCIUM 9.3 mg/dL (8.5-10.3); CREATININE 1.6 mg/dL (0.4-1.0); TOTAL PROTEIN 7.3 g/dL (6.7-8.2)
== END 2018-02-06 14:23 | disposition home or self-care (01) ==
LOC: LAB.R 14:22
PROVIDERS: ATTEND Internal Medicine
DX: R10.9 Unspecified abdominal pain (principal); I50.9 Heart failure, unspecified
CPT/HCPCS: 80053; 83880; 85025

== ENCOUNTER 2018-02-14 10:55 | Outpatient (CLI) | payer MEDICARE | END 2018-02-14 10:56 | LOC: LAB.R 10:55 | PROVIDERS: ATTEND Nurse Practitioner Primary Care | DX: N30.00 Acute cystitis without hematuria (principal) | CPT/HCPCS: 87086 ==

== ENCOUNTER 2018-02-23 09:07 | Outpatient (CLI) | payer MEDICARE ==
[2018-02-23 12:09] LABS: ALBUMIN 4.1 g/dL (3.2-5.5); ALBUMIN/GLOBULIN RATIO 1.1 (1.0-2.2); BILIRUBIN,TOTAL 0.7 mg/dL (0.2-1.0); CALCIUM 9.7 mg/dL (8.5-10.3); CREATININE 1.1 mg/dL (0.4-1.0); TOTAL PROTEIN 7.8 g/dL (6.7-8.2)
== END 2018-02-23 09:08 | disposition home or self-care (01) ==
LOC: LAB.R 09:07
PROVIDERS: ATTEND Physician Assistant Medical
DX: N30.00 Acute cystitis without hematuria (principal); N18.9 Chronic kidney disease, unspecified; I10 Essential (primary) hypertension
CPT/HCPCS: 80053; 87086

== ENCOUNTER 2018-03-08 08:00 | Outpatient (CLI) | payer MEDICARE ==
[2018-03-08 17:05] LABS: CALCIUM 9.7 mg/dL (8.5-10.3); CREATININE 1.1 mg/dL (0.4-1.0)
== END 2018-03-08 23:59 | disposition home or self-care (01) ==
LOC: LAB.R 08:00
PROVIDERS: ATTEND Nurse Practitioner Primary Care
DX: R53.83 Other fatigue (principal)
CPT/HCPCS: 80048

== ENCOUNTER 2018-05-16 08:00 | Outpatient (CLI) | payer MEDICARE ==
[2018-05-16 12:39] LABS: BASOPHILS # (AUTO) 0.1 10^3/uL (0.0-0.1); BASOPHILS % (AUTO) 1.3 %; EOSINOPHILS # (AUTO) 0.2 10^3/uL (0.0-0.7); EOSINOPHILS % (AUTO) 2.3 %; HGB - HEMOGLOBIN 13.4 g/dL (12.0-16.0); LYMPHOCYTES # (AUTO) 1.4 10^3/uL (1.5-3.5); LYMPHOCYTES % (AUTO) 14.7 %; MEAN CORPUSCULAR HEMOGLOBIN 28.6 pg (27.0-31.0); MEAN CORPUSCULAR HGB CONC 33.9 g/dL (32.0-36.0); MEAN CORPUSCULAR VOLUME 84.4 fL (81.0-99.0); MONOCYTES # (AUTO) 0.7 10^3/uL (0.0-1.0); MONOCYTES % (AUTO) 7.7 %; NEUTROPHILS # (AUTO) 6.8 10^3/uL (1.5-6.6); PLT - PLATELET COUNT 239 10^3/uL (130-450); RED BLOOD COUNT 4.71 10^6/uL (4.20-5.40); RED CELL DISTRIBUTION WIDTH 13.2 % (12.0-15.0); WHITE BLOOD COUNT 9.3 x10^3/uL (4.8-10.8)
[2018-05-16 12:51] LABS: ALBUMIN 3.5 g/dL (3.2-5.5); BILIRUBIN,TOTAL 0.7 mg/dL (0.2-1.0); CALCIUM 9.5 mg/dL (8.5-10.3); CREATININE 1.3 mg/dL (0.4-1.0)
== END 2018-05-16 23:59 | disposition home or self-care (01) ==
LOC: LAB.R 08:00
PROVIDERS: ATTEND Nurse Practitioner Primary Care
DX: R07.89 Other chest pain (principal); R10.9 Unspecified abdominal pain; R53.83 Other fatigue; E11.43 Type 2 diabetes mellitus with diabetic autonomic (poly)neuropathy; K31.84 Gastroparesis; E11.65 Type 2 diabetes mellitus with hyperglycemia; G62.9 Polyneuropathy, unspecified; I95.9 Hypotension, unspecified; R74.8 Abnormal levels of other serum enzymes
CPT/HCPCS: 80053; 82977; 84484; 85025

== ENCOUNTER 2018-06-01 08:57 | Outpatient (CLI) | payer MEDICARE ==
--- NOTE | 2018-06-01 14:32 | Ultrasound Report ---
Reason: ELEVATED ALKALINE PHOSPHATASE, ABDOMINAL PAIN, SERENA Procedure Date: 06/01/2018 Accession Number: [id number] / [id number] Procedure: US - Abdomen Limited CPT Code: FULL RESULT: EXAM: ABDOMEN ULTRASOUND LIMITED, RUQ EXAM DATE: 06/01/2018 09:57 AM. CLINICAL HISTORY: Elevated alkaline phosphatase, abdominal pain, nausea. COMPARISON: CT abdomen and pelvis 08/18/2017. TECHNIQUE: Real-time scanning was performed with static images obtained. FINDINGS: Liver: Liver background parenchyma is mildly coarse. Within the liver are multiple well-circumscribed shadowing echogenic masses including a 1.3 x 1.1 x 1.8 cm lesion in the right lobe and a 1.5 x 1.0 x 1.4 cm lesion near the jama hepatis with same sonographic features. The right lobe of the liver measures at least 15.7 cm. Main portal vein flow: Hepatopetal. Gallbladder: Surgically absent. Biliary System: CBD measures 7.7 mm. This can be within normal limits for size status post cholecystectomy. No intrahepatic biliary ductal dilation. Other: Periechogenic well-circumscribed solid nonvascular appearing lesion is also seen in bowel near the stomach adjacent to the left over the liver which measures 1.8 x 1.0 x 1.8 and also has a CT correlate. IMPRESSION: While a CBD diameter of approximately 8 mm can be within normal limits for size in this age group after cholecystectomy, elevated alkaline phosphatase would make MRCP to evaluate for choledocholithiasis or other distal obstruction reasonable if there is additional clinical evidence of biliary obstruction. Echogenic lesions within and around the liver correlate to calcifications seen on a prior CT abdomen and pelvis. RADIA
== END 2018-06-01 08:58 | disposition home or self-care (01) ==
LOC: DI 08:57
PROVIDERS: ATTEND Nurse Practitioner Primary Care
DX: R10.9 Unspecified abdominal pain (principal); R74.8 Abnormal levels of other serum enzymes; R74.0 Nonspecific elevation of levels of transaminase and lactic acid dehydrogenase [LDH]; R11.0 Nausea
CPT/HCPCS: 76705

== ENCOUNTER 2018-06-21 10:28 | Emergency (ER) | payer MEDICARE ==
[2018-06-21 11:04] LABS: BILIRUBIN,URINE NEGATIVE (NEGATIVE); GLUCOSE, URINE (UA) NEGATIVE (NEGATIVE); KETONES,URINE (UA) NEGATIVE (NEGATIVE); LEUKOCYTE ESTERASE, URINE SMALL (NEGATIVE); NITRITE,URINE POSITIVE (NEGATIVE); OCCULT BLOOD,URINE SMALL (NEGATIVE); PH,URINE 5.5 PH (5.0-7.5); PROTEIN,URINE 100 mg/dL (NEGATIVE); UROBILINOGEN,URINE 0.2 (NORMAL) E.U./dL (NORMAL)
[2018-06-21 11:25] LABS: CLARITY,URINE CLEAR (CLEAR)
[2018-06-21 11:26] LABS: BACTERIA,URINE Few /HPF (None Seen); SQUAMOUS EPITHELIAL CELL,UR MOD Squamous (<= Few)
[2018-06-21] MEDS ORDERED: NITROFURANTOIN MACRO 100 MG CAPSULE PO STA (12:23)
[2018-06-21] MEDS ORDERED: PHENAZOPYRIDINE 100 MG TABLET PO STA (12:23)
--- NOTE | 2018-06-21 12:50 | ED Physician Documentation ---
PD HPI FEMALE - Stated complaint Stated Complaint: FEMALE - Chief complaint Chief Complaint: UTI - History obtained from History obtained from: Patient - History of Present Illness Timing - onset: How many days ago (several) Timing - details: Gradual onset Associated symptoms: Back pain, Dysuria, Urinary frequency Similar symptoms before: Diagnosis (UTI about one year ago.) - Additional information Additional information: The patient is a 77-year-old female who presents with dysuria, frequency of urination, and urgency, that started several days ago and has become worse the past 2 days. She has developed mild lower back pain, more on the left than the right. She denies fever, nausea or vomiting. It feels similar to when she was treated for urinary tract infection about 1 year ago. 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 HEENT: Chronic vision loss, Other Psych: Depression Musculoskeletal: Osteoarthritis Derm: None - Past Surgical History Past Surgical History: Yes General: Cholecystectomy, Appendectomy Ortho: Hip replacement, 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 HEENT: Cataracts, Tonsil/Adenoidectomy - Present Medications Home Medications: Ambulatory Orders Medication Instructions Recorded Confirmed Hydrochlorothiazide 25 mg PO QAM 08/30/12 05/17/17 Insulin Glargine [Lantus Solostar] 45 unit SUBQ BID 08/30/12 05/17/17 Lisinopril 20 mg PO DAILY 08/30/12 05/17/17 Metoprolol Tartrate [Lopressor] 25 mg PO BID 08/30/12 05/17/17 Insulin Lispro [Humalog] 10 - 30 unit SQ TID 01/31/13 05/17/17 Multivitamin [Multivitamins] 1 each PO DAILY 02/12/16 05/17/17 Naproxen Sodium [Aleve] 2 tab PO Q6H PRN 09/26/16 05/17/17 Duloxetine HCl [Cymbalta] 60 mg PO DAILY 05/17/17 05/17/17 Methocarbamol [Robaxin] 500 mg PO Q6H PRN #25 tablet 08/17/17 Naproxen 375 mg PO BID #20 tablet 08/17/17 Oxycodone HCl/Acetaminophen 1 each PO Q6H PRN #20 tablet 08/17/17 [Percocet 5-325 mg Tablet] Nitrofurantoin Monohyd/M-Cryst 100 mg PO BID #10 capsule 06/21/18 [Macrobid 100 mg Capsule] Phenazopyridine HCl [Pyridium] 200 mg PO TID PRN #6 tablet 06/21/18 - Allergies Allergies/Adverse Reactions: Allergies Allergy/AdvReac Type Severity Reaction Status Date / Time hydrocodone [Hydrocodone] Allergy Severe hysterical, Verified 06/21/18 10:37 wild - Social History Does the pt smoke?: No Smoking Status: Never smoker Does the pt drink ETOH?: No Does the pt have substance abuse?: No - Immunizations Immunizations are current?: Yes Immunizations: TDAP current <10years - POLST Patient has POLST: No POLST Status: Full Code PD ED PE NORMAL - Vitals Vital signs reviewed: Yes (normal) - General General: Alert and oriented X 3, Well developed/nourished - HEENT HEENT: Atraumatic, Moist mucous membranes - Neck Neck: No adenopathy - Cardiac Cardiac: RRR - Respiratory Respiratory: No respiratory distress, Clear bilaterally - Abdomen Abdomen: Soft, Non tender - Back Back: Other (Mild left flank tenderness to percussion.) - Derm Derm: No rash - Extremities Extremities: No edema, No calf tenderness / cord - Neuro Neuro: Alert and oriented X 3, No motor deficit, Normal speech Results - Vitals Vitals: Vital Signs - 24 hr 06/21/18 10:35 Temperature 35.7 C L Heart Rate 82 Respiratory 14 Rate Blood Pressure 118/91 H O2 Saturation 97 Oxygen O2 Source Room air - Labs Labs: Laboratory Tests 06/21/18 10:45 Urine Color YELLOW Urine Clarity CLEAR Urine pH 5.5 Ur Specific [place] >=1.030 H Urine Protein 100 H Urine Glucose (UA) NEGATIVE Urine Ketones NEGATIVE Urine Occult Blood SMALL H Urine Nitrite POSITIVE H Urine Bilirubin NEGATIVE Urine Urobilinogen 0.2 (NORMAL) Ur Leukocyte Esterase SMALL H Urine RBC 6-10 H Urine WBC >25 H Ur Squamous Epith Cells MOD Squamous H Urine Bacteria Few Ur Microscopic Review INDICATED Urine Culture Comments NOT INDICATED PD MEDICAL DECISION MAKING - ED course Complexity details: reviewed results, considered differential, d/w patient ED course: Patient's presentation is most consistent with urinary tract infection, with positive urinalysis. I doubt pyelonephritis, and there is no evidence of sepsis. Treatment in the emergency department included administration of Macrobid 100 mg orally and Pyridium 200 mg orally. She is being discharged with prescriptions for both. I discussed with her the expected course of illness, antibiotic treatment and outpatient follow-up, as well as potentially worrisome signs or symptoms that should prompt reevaluation in the emergency department. Departure - Departure Disposition: Home, Self Care Clinical Impression: Urinary tract infection Condition: Stable Instructions: ED UTI Cystitis Female Follow-Up: Paco Bain MD [Primary Care Provider] - Prescriptions: Nitrofurantoin Monohyd/M-Cryst [Macrobid 100 mg Capsule] 100 mg PO BID #10 capsule Phenazopyridine HCl [Pyridium] 200 mg PO TID PRN #6 tablet PRN Reason: dysuria Comments: Drink plenty of fluids, including cranberry juice. Take Macrobid twice daily as prescribed. You can use Pyridium as prescribed if needed for painful urination. You can use Tylenol or ibuprofen as needed for fever or discomfort. Follow up with your primary physician within 2 weeks. Call to schedule appointment. Return to the emergency department if you develop increasing abdominal pain, fever with shaking chills, persistent vomiting, or otherwise worsening symptoms.
[2018-06-21 13:01] VITALS: BP 134/72
== END 2018-06-21 13:01 | disposition home or self-care (01) ==
LOC: ED 10:28
DX: N39.0 Urinary tract infection, site not specified (principal); I10 Essential (primary) hypertension; E11.9 Type 2 diabetes mellitus without complications; Z79.4 Long term (current) use of insulin
CPT/HCPCS: 81001; 99283; A9270; 81003; 87086

== ENCOUNTER 2018-08-16 08:40 | Outpatient (CLI) | payer MEDICARE ==
--- NOTE | 2018-08-16 10:53 | MRI Report ---
Reason: ABDOMINAL PAIN Procedure Date: 08/16/2018 Accession Number: [id number] / [id number] Procedure: MRI - MRCP W/O CPT Code: FULL RESULT: EXAM: MR ABDOMEN WITHOUT CONTRAST (MR CHOLANGIOPANCREATOGRAPHY) EXAM DATE: 08/16/2018 09:56 AM. CLINICAL HISTORY: Abdominal pain. History of cholecystectomy. COMPARISON: ABDOMEN LIMITED 06/01/2018 9:15 AM. ABDOMEN W/O 08/18/2017 11:09 PM. TECHNIQUE: Multiplanar breath-hold T1 and T2 sequences obtained through the abdomen on an MR scanner. Dedicated 2D and 3D MRCP sequences obtained through the biliary and pancreatic ducts. No intravenous contrast given. FINDINGS: Lung Bases: The lung bases are clear. Liver: The liver has normal size and morphology with a T2 bright lesion near the gallbladder fossa corresponding to calcifications/hyperechoic region previously characterized by CT and ultrasound. No evidence of suspicious mass. The intrahepatic bile ducts appear normal. CBD: The extrahepatic ducts appear normal for status post cholecystectomy. The CBD is 10 mm in diameter. Gallbladder: The gallbladder is partially distended and appears normal with no wall thickening or stone. Pancreas: The pancreas appears normal with no mass. The pancreatic duct measures 3 mm in diameter and demonstrates a variant anatomy with the accessory duct seen as the main drainage pathway, the anteriormost portion of the main pancreatic duct is diminutive in caliber but joins the common biliary duct in normal fashion. Spleen: The spleen appears normal. Kidneys and Adrenals: Bilateral fat stranding seen around the kidneys. There is mild to moderate right hydronephrosis, new compared to the 2018 CT. On several sequences there is the suggestion of intraluminal filling defects within the right ureter, this is incompletely visualized and could be artifact due to technique. The adrenals appear normal. Bowel: The small bowel and colon appear normal with no inflammation or obstruction. Retroperitoneum: The retroperitoneal structures appear normal with no mass or lymphadenopathy. IMPRESSION: Normal MRCP of the biliary ductal system. New right hydronephrosis. Recommendation: CT abdomen and pelvis for clarification of the etiology of the new hydronephrosis on the right. If clinically, the suspicion is for renal calculi, noncontrast CT would suffice. If the patient has a history of painless hematuria, CT urogram should be pursued. RADIA
== END 2018-08-16 08:41 | disposition home or self-care (01) ==
LOC: DI 08:40
PROVIDERS: ATTEND Internal Medicine Gastroenterology
DX: N13.30 Unspecified hydronephrosis (principal)
CPT/HCPCS: 74181

== ENCOUNTER 2018-10-22 16:50 | Outpatient (CLI) | payer MEDICARE ==
[2018-10-22 17:13] LABS: BASOPHILS % (AUTO) 0.4 %; EOSINOPHILS % (AUTO) 0.1 %; HGB - HEMOGLOBIN 11.9 g/dL (12.0-16.0); LYMPHOCYTES # (AUTO) 0.7 10^3/uL (1.5-3.5); LYMPHOCYTES % (AUTO) 6.3 %; MEAN CORPUSCULAR HEMOGLOBIN 26.6 pg (27.0-31.0); MEAN CORPUSCULAR HGB CONC 31.3 g/dL (32.0-36.0); MEAN PLATELET VOLUME 10.6 fL (7.9-10.8); MONOCYTES # (AUTO) 0.9 10^3/uL (0.0-1.0); MONOCYTES % (AUTO) 8.6 %; NEUTROPHILS % (AUTO) 84.2 %; PLT - PLATELET COUNT 268 10^3/uL (130-450); RED BLOOD COUNT 4.47 10^6/uL (4.20-5.40); RED CELL DISTRIBUTION WIDTH 13.7 % (12.0-15.0); WHITE BLOOD COUNT 10.7 x10^3/uL (4.8-10.8)
[2018-10-22 17:24] LABS: ALBUMIN 3.2 g/dL (3.2-5.5); ALBUMIN/GLOBULIN RATIO 0.8 (1.0-2.2); BILIRUBIN,TOTAL 0.8 mg/dL (0.2-1.0); CALCIUM 8.8 mg/dL (8.5-10.3); CREATININE 1.6 mg/dL (0.4-1.0); TOTAL PROTEIN 7.4 g/dL (6.7-8.2)
[2018-10-22 18:01] LABS: HB2 TOTAL 12.1 g/dL; HEMOGLOBIN A1C 0.65 g/dL; HEMOGLOBIN A1C % 7.1 % (4.6-6.2)
== END 2018-10-22 16:51 | disposition home or self-care (01) ==
LOC: LAB 16:50
PROVIDERS: ATTEND Nurse Practitioner
DX: R30.0 Dysuria (principal); I12.9 Hypertensive chronic kidney disease with stage 1 through stage 4 chronic kidney disease, or unspecified chronic kidney disease; E11.22 Type 2 diabetes mellitus with diabetic chronic kidney disease; N18.9 Chronic kidney disease, unspecified; E11.65 Type 2 diabetes mellitus with hyperglycemia; N13.30 Unspecified hydronephrosis
CPT/HCPCS: 36415; 80053; 83036; 85025

== ENCOUNTER 2018-10-23 08:00 | Outpatient (CLI) | payer MEDICARE | END 2018-10-23 08:01 | disposition home or self-care (01) | LOC: LAB.R 08:00 | PROVIDERS: ATTEND Nurse Practitioner | DX: R30.0 Dysuria (principal); E11.22 Type 2 diabetes mellitus with diabetic chronic kidney disease; N18.9 Chronic kidney disease, unspecified | CPT/HCPCS: 87086; 87181 ==

== ENCOUNTER 2018-10-26 17:54 | Outpatient (CLI) | payer MEDICARE ==
[2018-10-26 18:08] LABS: BASOPHILS # (AUTO) 0.1 10^3/uL (0.0-0.1); BASOPHILS % (AUTO) 0.5 %; EOSINOPHILS # (AUTO) 0.3 10^3/uL (0.0-0.7); EOSINOPHILS % (AUTO) 2.7 %; HGB - HEMOGLOBIN 12.6 g/dL (12.0-16.0); LYMPHOCYTES # (AUTO) 2.1 10^3/uL (1.5-3.5); LYMPHOCYTES % (AUTO) 22.7 %; MEAN CORPUSCULAR HEMOGLOBIN 27.2 pg (27.0-31.0); MEAN CORPUSCULAR HGB CONC 31.6 g/dL (32.0-36.0); MEAN PLATELET VOLUME 11.1 fL (7.9-10.8); MONOCYTES # (AUTO) 0.9 10^3/uL (0.0-1.0); MONOCYTES % (AUTO) 9.2 %; NEUTROPHILS # (AUTO) 5.9 10^3/uL (1.5-6.6); NEUTROPHILS % (AUTO) 64.4 %; PLT - PLATELET COUNT 335 10^3/uL (130-450); RED BLOOD COUNT 4.64 10^6/uL (4.20-5.40); RED CELL DISTRIBUTION WIDTH 13.5 % (12.0-15.0); WHITE BLOOD COUNT 9.2 x10^3/uL (4.8-10.8)
[2018-10-26 18:40] LABS: ALBUMIN 3.5 g/dL (3.2-5.5); ALBUMIN/GLOBULIN RATIO 0.9 (1.0-2.2); BILIRUBIN,TOTAL 0.5 mg/dL (0.2-1.0); CALCIUM 9.3 mg/dL (8.5-10.3); CREATININE 1.1 mg/dL (0.4-1.0); TOTAL PROTEIN 7.5 g/dL (6.7-8.2)
[2018-10-26 19:52] LABS: BILIRUBIN,URINE NEGATIVE (NEGATIVE); GLUCOSE, URINE (UA) NEGATIVE (NEGATIVE); KETONES,URINE (UA) NEGATIVE (NEGATIVE); LEUKOCYTE ESTERASE, URINE NEGATIVE (NEGATIVE); NITRITE,URINE NEGATIVE (NEGATIVE); OCCULT BLOOD,URINE NEGATIVE (NEGATIVE); PROTEIN,URINE 100 mg/dL (NEGATIVE); UROBILINOGEN,URINE 0.2 (NORMAL) E.U./dL (NORMAL)
[2018-10-26 20:01] LABS: CLARITY,URINE CLEAR (CLEAR)
[2018-10-26 20:02] LABS: BACTERIA,URINE Rare /HPF (None Seen); RBC,URINE None Seen /HPF (0-5); SQUAMOUS EPITHELIAL CELL,UR RARE Squamous (<= Few)
== END 2018-10-26 17:55 | disposition home or self-care (01) ==
LOC: LAB 17:54
PROVIDERS: ATTEND Nurse Practitioner
DX: N13.30 Unspecified hydronephrosis (principal); R30.0 Dysuria
CPT/HCPCS: 36415; 80053; 81001; 81003; 85025; 87086

== ENCOUNTER 2018-11-06 08:48 | Outpatient (CLI) | payer MEDICARE ==
[2018-11-06 09:20] LABS: CREATININE 1.1 mg/dL (0.4-1.0)
== END 2018-11-06 08:49 | disposition home or self-care (01) ==
LOC: LAB 08:48
PROVIDERS: ATTEND Urology
DX: N13.30 Unspecified hydronephrosis (principal)
CPT/HCPCS: 36415; 82565; 84520

== ENCOUNTER 2019-02-22 10:50 | Outpatient (CLI) | payer MEDICARE | END 2019-02-22 23:59 | disposition home or self-care (01) | LOC: LAB.R 10:50 | PROVIDERS: ATTEND Family Medicine | DX: R30.0 Dysuria (principal); R41.0 Disorientation, unspecified | CPT/HCPCS: 81002; 87086 ==

== ENCOUNTER 2020-01-10 08:33 | Outpatient (CLI) | payer MEDICARE ==
[2020-01-10 09:23] LABS: BASOPHILS % (AUTO) 0.7 %; EOSINOPHILS # (AUTO) 0.2 10^3/uL (0.0-0.7); EOSINOPHILS % (AUTO) 3.8 %; LYMPHOCYTES # (AUTO) 1.3 10^3/uL (1.5-3.5); LYMPHOCYTES % (AUTO) 29.6 %; MEAN CORPUSCULAR HEMOGLOBIN 30.5 pg (27.0-31.0); MEAN CORPUSCULAR HGB CONC 32.9 g/dL (32.0-36.0); MEAN CORPUSCULAR VOLUME 92.9 fL (81.0-99.0); MEAN PLATELET VOLUME 10.6 fL (7.9-10.8); MONOCYTES # (AUTO) 0.4 10^3/uL (0.0-1.0); MONOCYTES % (AUTO) 8.6 %; NEUTROPHILS # (AUTO) 2.5 10^3/uL (1.5-6.6); NEUTROPHILS % (AUTO) 57.1 %; PLT - PLATELET COUNT 164 10^3/uL (130-450); RED BLOOD COUNT 3.93 10^6/uL (4.20-5.40); RED CELL DISTRIBUTION WIDTH 12.7 % (12.0-15.0); WHITE BLOOD COUNT 4.4 x10^3/uL (4.8-10.8)
[2020-01-10 09:39] LABS: ALBUMIN 3.5 g/dL (3.2-5.5); ALBUMIN/GLOBULIN RATIO 1.1 (1.0-2.2); BILIRUBIN,TOTAL 0.6 mg/dL (0.2-1.0); CALCIUM 9.2 mg/dL (8.5-10.3); CREATININE 1.4 mg/dL (0.4-1.0); TOTAL PROTEIN 6.6 g/dL (6.7-8.2)
== END 2020-01-10 08:34 | disposition home or self-care (01) ==
LOC: LAB 08:33
PROVIDERS: ATTEND Internal Medicine Hematology & Oncology
DX: C56.9 Malignant neoplasm of unspecified ovary (principal)
CPT/HCPCS: 36415; 80053; 85025; 86304

== ENCOUNTER 2020-03-25 08:00 | Outpatient (CLI) | payer MEDICARE ==
[2020-03-25 17:57] LABS: BILIRUBIN,URINE NEGATIVE (NEGATIVE); GLUCOSE, URINE (UA) 500 mg/dL (NEGATIVE); KETONES,URINE (UA) NEGATIVE (NEGATIVE); LEUKOCYTE ESTERASE, URINE NEGATIVE (NEGATIVE); NITRITE,URINE NEGATIVE (NEGATIVE); OCCULT BLOOD,URINE TRACE-INTA (NEGATIVE); PH,URINE 5.5 PH (5.0-7.5); PROTEIN,URINE 100 mg/dL (NEGATIVE); UROBILINOGEN,URINE 0.2 (NORMAL) E.U./dL (NORMAL)
[2020-03-25 18:04] LABS: CLARITY,URINE HAZY (CLEAR)
[2020-03-25 18:19] LABS: BACTERIA,URINE None Seen /HPF (None Seen); RBC,URINE None Seen /HPF (0-5); SQUAMOUS EPITHELIAL CELL,UR MANY Squamous (<= Few)
== END 2020-03-25 23:59 | disposition home or self-care (01) ==
LOC: LAB.N 08:00
PROVIDERS: ATTEND Nurse Practitioner
DX: R30.0 Dysuria (principal)
CPT/HCPCS: 81001; 81003; 87086

== ENCOUNTER 2020-06-17 08:00 | Outpatient (CLI) | payer MEDICARE ==
[2020-06-17 18:21] LABS: BASOPHILS % (AUTO) 0.7 %; EOSINOPHILS # (AUTO) 0.2 10^3/uL (0.0-0.7); EOSINOPHILS % (AUTO) 2.5 %; HCT - HEMATOCRIT 42.2 % (37.0-47.0); HGB - HEMOGLOBIN 13.4 g/dL (12.0-16.0); LYMPHOCYTES # (AUTO) 1.4 10^3/uL (1.5-3.5); LYMPHOCYTES % (AUTO) 22.5 %; MEAN CORPUSCULAR HEMOGLOBIN 29.9 pg (27.0-31.0); MEAN CORPUSCULAR HGB CONC 31.8 g/dL (32.0-36.0); MEAN CORPUSCULAR VOLUME 94.2 fL (81.0-99.0); MEAN PLATELET VOLUME 10.7 fL (7.9-10.8); MONOCYTES # (AUTO) 0.5 10^3/uL (0.0-1.0); MONOCYTES % (AUTO) 8.1 %; NEUTROPHILS % (AUTO) 65.9 %; PLT - PLATELET COUNT 163 10^3/uL (130-450); RED BLOOD COUNT 4.48 10^6/uL (4.20-5.40); RED CELL DISTRIBUTION WIDTH 12.6 % (12.0-15.0); WHITE BLOOD COUNT 6.1 x10^3/uL (4.8-10.8)
[2020-06-17 18:29] LABS: BILIRUBIN,URINE NEGATIVE (NEGATIVE); GLUCOSE, URINE (UA) NEGATIVE (NEGATIVE); KETONES,URINE (UA) NEGATIVE (NEGATIVE); LEUKOCYTE ESTERASE, URINE NEGATIVE (NEGATIVE); NITRITE,URINE NEGATIVE (NEGATIVE); OCCULT BLOOD,URINE NEGATIVE (NEGATIVE); PROTEIN,URINE 100 mg/dL (NEGATIVE); UROBILINOGEN,URINE 0.2 (NORMAL) E.U./dL (NORMAL)
[2020-06-17 18:42] LABS: ALBUMIN 3.6 g/dL (3.2-5.5); ALBUMIN/GLOBULIN RATIO 1.1 (1.0-2.2); ALKALINE PHOSPHATASE 69 IU/L (42-121); ALT ALANINE AMINOTRANSFERASE 32 IU/L (10-60); AST ASPARTATE AMINOTRANSFERASE 28 IU/L (10-42); BILIRUBIN,TOTAL 0.5 mg/dL (0.2-1.0); BUN - BLOOD UREA NITROGEN 42 mg/dL (6-20); CARBON DIOXIDE - CO2 29 mmol/L (21-32); CHLORIDE 100 mmol/L (101-111); CHOLESTEROL 293 mg/dL; CREATININE 1.2 mg/dL (0.4-1.0); GFR - MDRD 43 (>89); GLUCOSE 184 mg/dL (70-100); HDL CHOLESTEROL 49 mg/dL; LDL CHOLESTEROL,CALCULATED 191 mg/dL; LDL/HDL RATIO 3.9 (<4.4); POTASSIUM 4.9 mmol/L (3.5-5.0); SODIUM 137 mmol/L (135-145); TOTAL PROTEIN 6.8 g/dL (6.7-8.2); TRIGLYCERIDES 266 mg/dL; VLDL CHOLESTEROL 53 mg/dL
[2020-06-17 18:44] LABS: BACTERIA,URINE Few /HPF (None Seen); CLARITY,URINE CLEAR (CLEAR); RBC,URINE None Seen /HPF (0-5); SQUAMOUS EPITHELIAL CELL,UR MANY Squamous (<= Few); WBC,URINE 0-3 /HPF (0-5)
[2020-06-17 18:59] LABS: ESTIMATED AVERAGE GLUCOSE 180 mg/dL (70-100); HEMOGLOBIN A1c% 7.9 % (4.27-6.07)
[2020-06-17 19:01] LABS: CA 125 24.7 U/mL (0.0-35.0)
[2020-06-17 19:05] LABS: THYROID STIMULATING HORMONE 2.26 uIU/mL (0.34-5.60)
== END 2020-06-17 23:59 | disposition home or self-care (01) ==
LOC: LAB.WCP 08:00
PROVIDERS: ATTEND Nurse Practitioner
DX: R01.1 Cardiac murmur, unspecified (principal); E11.22 Type 2 diabetes mellitus with diabetic chronic kidney disease; N18.9 Chronic kidney disease, unspecified; C56.9 Malignant neoplasm of unspecified ovary; R30.0 Dysuria; F41.9 Anxiety disorder, unspecified; F32.9 Major depressive disorder, single episode, unspecified; G62.9 Polyneuropathy, unspecified; E78.5 Hyperlipidemia, unspecified; I50.9 Heart failure, unspecified; K21.9 Gastro-esophageal reflux disease without esophagitis
CPT/HCPCS: 36415; 80053; 80061; 81001; 83036; 83721; 84443; 85025; 86304; 87086

== ENCOUNTER 2020-09-15 08:00 | Outpatient (CLI) | payer MEDICARE | END 2020-09-15 23:59 | disposition home or self-care (01) | LOC: LAB.WCP 08:00 | PROVIDERS: ATTEND Physician Assistant Medical | DX: R30.0 Dysuria (principal) | CPT/HCPCS: 81002 ==

== ENCOUNTER 2020-09-16 08:00 | Outpatient (CLI) | payer MEDICARE | END 2020-09-16 23:59 | disposition home or self-care (01) | LOC: LAB.WCP 08:00 | PROVIDERS: ATTEND Physician Assistant Medical | DX: R30.0 Dysuria (principal) | CPT/HCPCS: 87086; 87181 ==

== ENCOUNTER 2020-10-15 11:46 | Outpatient (CLI) | payer MEDICARE ==
[2020-10-15 12:40] LABS: ALBUMIN 3.7 g/dL (3.2-5.5); ALBUMIN/GLOBULIN RATIO 1.1 (1.0-2.2); ALKALINE PHOSPHATASE 67 IU/L (42-121); ALT ALANINE AMINOTRANSFERASE 32 IU/L (10-60); AST ASPARTATE AMINOTRANSFERASE 26 IU/L (10-42); BILIRUBIN,TOTAL 0.8 mg/dL (0.2-1.0); BUN - BLOOD UREA NITROGEN 42 mg/dL (6-20); CALCIUM 9.1 mg/dL (8.5-10.3); CARBON DIOXIDE - CO2 25 mmol/L (21-32); CHLORIDE 100 mmol/L (101-111); CHOL/HDL RATIO 6.5 (<4.4); CHOLESTEROL 305 mg/dL; CREATININE 1.4 mg/dL (0.4-1.0); GFR - MDRD 36 (>89); GLUCOSE 252 mg/dL (70-100); HDL CHOLESTEROL 47 mg/dL; LDL CHOLESTEROL,CALCULATED 188 mg/dL; POTASSIUM 4.7 mmol/L (3.5-5.0); SODIUM 136 mmol/L (135-145); TOTAL PROTEIN 7.2 g/dL (6.7-8.2); TRIGLYCERIDES 351 mg/dL; VLDL CHOLESTEROL 70 mg/dL
[2020-10-15 12:45] LABS: THYROID STIMULATING HORMONE 3.25 uIU/mL (0.34-5.60)
[2020-10-15 12:56] LABS: ESTIMATED AVERAGE GLUCOSE 180 mg/dL (70-100); HEMOGLOBIN A1c% 7.9 % (4.27-6.07)
[2020-10-15 13:35] LABS: CREATININE,URINE 129.9 mg/dL; MICROALBUM/CREATININE RATIO,UR 1464.2 ug/mg (<30.0); MICROALBUMIN,URINE 190.2 mg/dL (0-300.0)
== END 2020-10-15 11:47 | disposition home or self-care (01) ==
LOC: LAB 11:46
PROVIDERS: ATTEND Physician Assistant Medical
DX: E11.8 Type 2 diabetes mellitus with unspecified complications (principal)
CPT/HCPCS: 36415; 80053; 80061; 82043; 82570; 83036; 83721; 84443

== ENCOUNTER 2020-10-23 08:45 | Outpatient (CLI) | payer MEDICARE | END 2020-10-23 23:59 | disposition home or self-care (01) | LOC: LAB.WCP 08:45 | PROVIDERS: ATTEND Physician Assistant Medical | DX: R30.0 Dysuria (principal) | CPT/HCPCS: 87086; 87181 ==

== ENCOUNTER 2020-11-10 08:00 | Outpatient (CLI) | payer MEDICARE ==
[2020-11-10 13:25] LABS: BILIRUBIN,URINE NEGATIVE (NEGATIVE); CLARITY,URINE CLEAR (CLEAR); GLUCOSE, URINE (UA) NEGATIVE (NEGATIVE); KETONES,URINE (UA) NEGATIVE (NEGATIVE); LEUKOCYTE ESTERASE, URINE NEGATIVE (NEGATIVE); NITRITE,URINE NEGATIVE (NEGATIVE); OCCULT BLOOD,URINE NEGATIVE (NEGATIVE); PROTEIN,URINE 100 mg/dL (NEGATIVE); UROBILINOGEN,URINE 0.2 (NORMAL) E.U./dL (NORMAL)
[2020-11-10 13:46] LABS: RBC,URINE 0-5 /HPF (0-5); WBC,URINE 0-3 /HPF (0-5)
[2020-11-10 13:47] LABS: BACTERIA,URINE Few /HPF (None Seen); SQUAMOUS EPITHELIAL CELL,UR RARE Squamous (<= Few)
== END 2020-11-10 23:59 | disposition home or self-care (01) ==
LOC: LAB.WCP 08:00
PROVIDERS: ATTEND Physician Assistant Medical
DX: R30.0 Dysuria (principal)
CPT/HCPCS: 81001; 81003; 87086; 87181

== ENCOUNTER 2021-05-18 09:29 | Outpatient (CLI) | payer MEDICARE ==
[2021-05-18 10:02] LABS: BUN - BLOOD UREA NITROGEN 42 mg/dL (6-20); CALCIUM 9.2 mg/dL (8.5-10.3); CARBON DIOXIDE - CO2 24 mmol/L (21-32); CHLORIDE 101 mmol/L (101-111); CHOL/HDL RATIO 5.3 (<4.4); CHOLESTEROL 252 mg/dL; CREATININE 1.3 mg/dL (0.4-1.0); GFR - MDRD 39 (>89); GLUCOSE 251 mg/dL (70-100); HDL CHOLESTEROL 48 mg/dL; LDL CHOLESTEROL,CALCULATED 144 mg/dL; POTASSIUM 4.9 mmol/L (3.5-5.0); SODIUM 135 mmol/L (135-145); TRIGLYCERIDES 302 mg/dL; VLDL CHOLESTEROL 60 mg/dL
[2021-05-18 11:54] LABS: ESTIMATED AVERAGE GLUCOSE 174 mg/dL (70-100); HEMOGLOBIN A1c% 7.7 % (4.27-6.07)
== END 2021-05-18 09:30 | disposition home or self-care (01) ==
LOC: LAB 09:29
PROVIDERS: ATTEND Physician Assistant Medical
DX: E11.8 Type 2 diabetes mellitus with unspecified complications (principal)
CPT/HCPCS: 36415; 80048; 80061; 83036; 83721

== ENCOUNTER 2021-05-20 15:27 | Outpatient (CLI) | payer MEDICARE | END 2021-05-20 15:28 | disposition home or self-care (01) | LOC: RT 15:27 | PROVIDERS: ATTEND Internal Medicine Hematology & Oncology | DX: C56.9 Malignant neoplasm of unspecified ovary (principal); Z79.899 Other long term (current) drug therapy | CPT/HCPCS: 93005 ==

== ENCOUNTER 2021-08-26 12:11 | Outpatient (CLI) | payer MEDICARE ==
[2021-08-26 12:39] LABS: BASOPHILS % (AUTO) 0.6 %; EOSINOPHILS # (AUTO) 0.2 10^3/uL (0.0-0.7); EOSINOPHILS % (AUTO) 3.3 %; HCT - HEMATOCRIT 44.4 % (37.0-47.0); HGB - HEMOGLOBIN 13.9 g/dL (12.0-16.0); LYMPHOCYTES # (AUTO) 1.3 10^3/uL (1.5-3.5); LYMPHOCYTES % (AUTO) 20.8 %; MEAN CORPUSCULAR HGB CONC 31.3 g/dL (32.0-36.0); MEAN CORPUSCULAR VOLUME 92.5 fL (81.0-99.0); MEAN PLATELET VOLUME 11.1 fL (7.9-10.8); MONOCYTES # (AUTO) 0.5 10^3/uL (0.0-1.0); MONOCYTES % (AUTO) 8.1 %; NEUTROPHILS # (AUTO) 4.2 10^3/uL (1.5-6.6); NEUTROPHILS % (AUTO) 66.7 %; PLT - PLATELET COUNT 189 10^3/uL (130-450); RED CELL DISTRIBUTION WIDTH 12.7 % (12.0-15.0); WHITE BLOOD COUNT 6.3 x10^3/uL (4.8-10.8)
[2021-08-26 12:50] LABS: ESTIMATED AVERAGE GLUCOSE 169 mg/dL (70-100); HEMOGLOBIN A1c% 7.5 % (4.27-6.07)
[2021-08-26 12:55] LABS: ALBUMIN 3.6 g/dL (3.2-5.5); ALBUMIN/GLOBULIN RATIO 1.1 (1.0-2.2); ALKALINE PHOSPHATASE 91 IU/L (42-121); ALT ALANINE AMINOTRANSFERASE 15 IU/L (10-60); AST ASPARTATE AMINOTRANSFERASE 16 IU/L (10-42); BILIRUBIN,TOTAL 0.5 mg/dL (0.2-1.0); BUN - BLOOD UREA NITROGEN 30 mg/dL (6-20); CALCIUM 9.8 mg/dL (8.5-10.3); CARBON DIOXIDE - CO2 27 mmol/L (21-32); CHLORIDE 104 mmol/L (101-111); CHOL/HDL RATIO 6.1 (<4.4); CHOLESTEROL 317 mg/dL; CREATININE 1.2 mg/dL (0.4-1.0); GFR - MDRD 43 (>89); GLUCOSE 197 mg/dL (70-100); HDL CHOLESTEROL 52 mg/dL; LDL CHOLESTEROL,CALCULATED 207 mg/dL; POTASSIUM 5.1 mmol/L (3.5-5.0); SODIUM 139 mmol/L (135-145); TOTAL PROTEIN 6.9 g/dL (6.7-8.2); TRIGLYCERIDES 290 mg/dL; VLDL CHOLESTEROL 58 mg/dL
== END 2021-08-26 12:12 | disposition home or self-care (01) ==
LOC: LAB 12:11
PROVIDERS: ATTEND Internal Medicine Hematology & Oncology
DX: E11.8 Type 2 diabetes mellitus with unspecified complications (principal); C56.9 Malignant neoplasm of unspecified ovary
CPT/HCPCS: 36415; 80053; 80061; 83036; 83721; 85025; 86304

== ENCOUNTER 2022-03-09 14:29 | Outpatient (CLI) | payer MEDICARE ==
[2022-03-09 14:50] LABS: BASOPHILS # (AUTO) 0.1 10^3/uL (0.0-0.1); BASOPHILS % (AUTO) 1.6 %; EOSINOPHILS # (AUTO) 0.1 10^3/uL (0.0-0.7); EOSINOPHILS % (AUTO) 3.5 %; HCT - HEMATOCRIT 34.7 % (37.0-47.0); HGB - HEMOGLOBIN 11.2 g/dL (12.0-16.0); LYMPHOCYTES # (AUTO) 1.3 10^3/uL (1.5-3.5); LYMPHOCYTES % (AUTO) 35.8 %; MEAN CORPUSCULAR HEMOGLOBIN 29.7 pg (27.0-31.0); MEAN CORPUSCULAR HGB CONC 32.3 g/dL (32.0-36.0); MEAN PLATELET VOLUME 9.5 fL (7.9-10.8); MONOCYTES # (AUTO) 0.3 10^3/uL (0.0-1.0); MONOCYTES % (AUTO) 8.3 %; NEUTROPHILS # (AUTO) 1.9 10^3/uL (1.5-6.6); NEUTROPHILS % (AUTO) 50.5 %; PLT - PLATELET COUNT 147 10^3/uL (130-450); RED BLOOD COUNT 3.77 10^6/uL (4.20-5.40); RED CELL DISTRIBUTION WIDTH 15.1 % (12.0-15.0); WHITE BLOOD COUNT 3.7 x10^3/uL (4.8-10.8)
[2022-03-09 15:18] LABS: ALBUMIN 3.2 g/dL (3.2-5.5); ALBUMIN/GLOBULIN RATIO 0.9 (1.0-2.2); BILIRUBIN,TOTAL 0.3 mg/dL (0.2-1.0); CALCIUM 9.1 mg/dL (8.5-10.3); CREATININE 2.4 mg/dL (0.4-1.0); POTASSIUM 4.8 mmol/L (3.5-5.0); TOTAL PROTEIN 6.6 g/dL (6.7-8.2)
== END 2022-03-09 14:30 | disposition home or self-care (01) ==
LOC: LAB 14:29
PROVIDERS: ATTEND Internal Medicine Hematology & Oncology
DX: C56.9 Malignant neoplasm of unspecified ovary (principal)
CPT/HCPCS: 36415; 80053; 85025; 86304

== ENCOUNTER 2022-03-14 14:53 | Outpatient (CLI) | payer MEDICARE ==
[2022-03-14 15:08] LABS: BASOPHILS # (AUTO) 0.1 10^3/uL (0.0-0.1); BASOPHILS % (AUTO) 1.9 %; EOSINOPHILS # (AUTO) 0.1 10^3/uL (0.0-0.7); EOSINOPHILS % (AUTO) 2.7 %; HCT - HEMATOCRIT 36.2 % (37.0-47.0); HGB - HEMOGLOBIN 11.8 g/dL (12.0-16.0); LYMPHOCYTES # (AUTO) 1.4 10^3/uL (1.5-3.5); LYMPHOCYTES % (AUTO) 33.9 %; MEAN CORPUSCULAR HEMOGLOBIN 30.2 pg (27.0-31.0); MEAN CORPUSCULAR HGB CONC 32.6 g/dL (32.0-36.0); MEAN CORPUSCULAR VOLUME 92.6 fL (81.0-99.0); MEAN PLATELET VOLUME 9.8 fL (7.9-10.8); MONOCYTES # (AUTO) 0.5 10^3/uL (0.0-1.0); MONOCYTES % (AUTO) 10.9 %; NEUTROPHILS # (AUTO) 2.1 10^3/uL (1.5-6.6); NEUTROPHILS % (AUTO) 50.4 %; PLT - PLATELET COUNT 201 10^3/uL (130-450); RED BLOOD COUNT 3.91 10^6/uL (4.20-5.40); WHITE BLOOD COUNT 4.1 x10^3/uL (4.8-10.8)
[2022-03-14 16:40] LABS: BILIRUBIN,URINE NEGATIVE (NEGATIVE); GLUCOSE, URINE (UA) 100 mg/dL (NEGATIVE); KETONES,URINE (UA) NEGATIVE (NEGATIVE); LEUKOCYTE ESTERASE, URINE NEGATIVE (NEGATIVE); NITRITE,URINE NEGATIVE (NEGATIVE); OCCULT BLOOD,URINE MODERATE (NEGATIVE); PROTEIN,URINE 100 mg/dL (NEGATIVE); UROBILINOGEN,URINE 0.2 (NORMAL) E.U./dL (NORMAL)
[2022-03-14 17:31] LABS: BACTERIA,URINE Few /HPF (None Seen); CLARITY,URINE CLEAR (CLEAR); SQUAMOUS EPITHELIAL CELL,UR FEW Squamous (<= Few)
== END 2022-03-14 14:54 | disposition home or self-care (01) ==
LOC: LAB 14:53
PROVIDERS: ATTEND Internal Medicine Hematology & Oncology
DX: C56.9 Malignant neoplasm of unspecified ovary (principal); N13.30 Unspecified hydronephrosis
CPT/HCPCS: 36415; 81001; 85025; 86304; 87086

== ENCOUNTER 2022-03-23 10:50 | Outpatient (CLI) | payer MEDICARE ==
[2022-03-23 11:22] LABS: CREATININE 2.5 mg/dL (0.4-1.0); POTASSIUM 4.6 mmol/L (3.5-5.0)
[2022-03-23 12:19] LABS: ESTIMATED AVERAGE GLUCOSE 166 mg/dL (70-100); HEMOGLOBIN A1c% 7.4 % (4.27-6.07)
== END 2022-03-23 10:51 | disposition home or self-care (01) ==
LOC: LAB 10:50
PROVIDERS: ATTEND Internal Medicine Hematology & Oncology
DX: E11.8 Type 2 diabetes mellitus with unspecified complications (principal); N13.30 Unspecified hydronephrosis
CPT/HCPCS: 36415; 80048; 83036

== ENCOUNTER 2022-04-05 12:08 | Outpatient (CLI) | payer MEDICARE ==
[2022-04-05 12:28] LABS: BASOPHILS # (AUTO) 0.1 10^3/uL (0.0-0.1); BASOPHILS % (AUTO) 1.7 %; EOSINOPHILS # (AUTO) 0.1 10^3/uL (0.0-0.7); EOSINOPHILS % (AUTO) 3.3 %; HCT - HEMATOCRIT 34.4 % (37.0-47.0); HGB - HEMOGLOBIN 11.3 g/dL (12.0-16.0); LYMPHOCYTES % (AUTO) 33.7 %; MEAN CORPUSCULAR HEMOGLOBIN 31.4 pg (27.0-31.0); MEAN CORPUSCULAR HGB CONC 32.8 g/dL (32.0-36.0); MEAN CORPUSCULAR VOLUME 95.6 fL (81.0-99.0); MEAN PLATELET VOLUME 9.9 fL (7.9-10.8); MONOCYTES # (AUTO) 0.2 10^3/uL (0.0-1.0); NEUTROPHILS # (AUTO) 1.6 10^3/uL (1.5-6.6); PLT - PLATELET COUNT 150 10^3/uL (130-450); RED CELL DISTRIBUTION WIDTH 14.5 % (12.0-15.0)
[2022-04-05 12:45] LABS: ALBUMIN 3.5 g/dL (3.2-5.5); ALBUMIN/GLOBULIN RATIO 0.9 (1.0-2.2); BILIRUBIN,TOTAL 0.5 mg/dL (0.2-1.0); CALCIUM 9.4 mg/dL (8.5-10.3); CREATININE 2.8 mg/dL (0.4-1.0); POTASSIUM 5.1 mmol/L (3.5-5.0); TOTAL PROTEIN 7.2 g/dL (6.7-8.2)
== END 2022-04-05 12:09 | disposition home or self-care (01) ==
LOC: LAB 12:08
PROVIDERS: ATTEND Internal Medicine Hematology & Oncology
DX: C56.9 Malignant neoplasm of unspecified ovary (principal); N13.30 Unspecified hydronephrosis
CPT/HCPCS: 36415; 80053; 85025; 86304

== ENCOUNTER 2022-04-28 11:01 | Outpatient (CLI) | payer MEDICARE ==
[2022-04-28 11:24] LABS: BASOPHILS # (AUTO) 0.1 10^3/uL (0.0-0.1); BASOPHILS % (AUTO) 1.6 %; EOSINOPHILS # (AUTO) 0.1 10^3/uL (0.0-0.7); EOSINOPHILS % (AUTO) 2.1 %; HCT - HEMATOCRIT 37.1 % (37.0-47.0); HGB - HEMOGLOBIN 12.1 g/dL (12.0-16.0); LYMPHOCYTES # (AUTO) 1.1 10^3/uL (1.5-3.5); LYMPHOCYTES % (AUTO) 24.6 %; MEAN CORPUSCULAR HEMOGLOBIN 31.7 pg (27.0-31.0); MEAN CORPUSCULAR HGB CONC 32.6 g/dL (32.0-36.0); MEAN CORPUSCULAR VOLUME 97.1 fL (81.0-99.0); MEAN PLATELET VOLUME 9.7 fL (7.9-10.8); MONOCYTES # (AUTO) 0.6 10^3/uL (0.0-1.0); MONOCYTES % (AUTO) 13.2 %; NEUTROPHILS # (AUTO) 2.5 10^3/uL (1.5-6.6); NEUTROPHILS % (AUTO) 58.3 %; PLT - PLATELET COUNT 191 10^3/uL (130-450); RED BLOOD COUNT 3.82 10^6/uL (4.20-5.40); RED CELL DISTRIBUTION WIDTH 13.8 % (12.0-15.0); WHITE BLOOD COUNT 4.3 x10^3/uL (4.8-10.8)
[2022-04-28 11:33] LABS: BILIRUBIN,URINE NEGATIVE (NEGATIVE); GLUCOSE, URINE (UA) NEGATIVE (NEGATIVE); KETONES,URINE (UA) NEGATIVE (NEGATIVE); LEUKOCYTE ESTERASE, URINE MODERATE (NEGATIVE); NITRITE,URINE NEGATIVE (NEGATIVE); OCCULT BLOOD,URINE LARGE (NEGATIVE); PH,URINE 5.5 PH (5.0-7.5); PROTEIN,URINE 100 mg/dL (NEGATIVE); UROBILINOGEN,URINE 0.2 (NORMAL) E.U./dL (NORMAL)
[2022-04-28 11:41] LABS: CLARITY,URINE CLOUDY (CLEAR); WBC,URINE >25 /HPF (0-5)
[2022-04-28 11:42] LABS: BACTERIA,URINE Moderate /HPF (None Seen); SQUAMOUS EPITHELIAL CELL,UR MOD Squamous (<= Few)
[2022-04-28 11:46] LABS: ALBUMIN 3.6 g/dL (3.2-5.5); ALBUMIN/GLOBULIN RATIO 1.1 (1.0-2.2); BILIRUBIN,TOTAL 0.5 mg/dL (0.2-1.0); CALCIUM 9.1 mg/dL (8.5-10.3); CREATININE 2.2 mg/dL (0.4-1.0); POTASSIUM 4.4 mmol/L (3.5-5.0)
[2022-04-28 12:03] LABS: CREATININE,URINE 137.3 mg/dL; PROTEIN/CREATININE RATIO,URINE 2.5 (<=0.2)
== END 2022-04-28 11:02 | disposition home or self-care (01) ==
LOC: LAB 11:01
PROVIDERS: ATTEND Internal Medicine Hematology & Oncology
DX: C56.9 Malignant neoplasm of unspecified ovary (principal)
CPT/HCPCS: 36415; 80053; 81001; 82570; 84156; 85025; 87086

== ENCOUNTER 2022-05-23 15:33 | Outpatient (CLI) | payer MEDICARE ==
[2022-05-23 15:47] LABS: BASOPHILS # (AUTO) 0.1 10^3/uL (0.0-0.1); BASOPHILS % (AUTO) 1.6 %; EOSINOPHILS # (AUTO) 0.2 10^3/uL (0.0-0.7); EOSINOPHILS % (AUTO) 4.2 %; HCT - HEMATOCRIT 32.4 % (37.0-47.0); HGB - HEMOGLOBIN 10.5 g/dL (12.0-16.0); LYMPHOCYTES # (AUTO) 1.1 10^3/uL (1.5-3.5); LYMPHOCYTES % (AUTO) 27.3 %; MEAN CORPUSCULAR HEMOGLOBIN 31.5 pg (27.0-31.0); MEAN CORPUSCULAR HGB CONC 32.4 g/dL (32.0-36.0); MEAN CORPUSCULAR VOLUME 97.3 fL (81.0-99.0); MEAN PLATELET VOLUME 9.7 fL (7.9-10.8); MONOCYTES # (AUTO) 0.3 10^3/uL (0.0-1.0); MONOCYTES % (AUTO) 6.8 %; NEUTROPHILS # (AUTO) 2.3 10^3/uL (1.5-6.6); NEUTROPHILS % (AUTO) 59.8 %; PLT - PLATELET COUNT 179 10^3/uL (130-450); RED BLOOD COUNT 3.33 10^6/uL (4.20-5.40); RED CELL DISTRIBUTION WIDTH 12.7 % (12.0-15.0); WHITE BLOOD COUNT 3.9 x10^3/uL (4.8-10.8)
[2022-05-23 15:51] LABS: BILIRUBIN,URINE NEGATIVE (NEGATIVE); GLUCOSE, URINE (UA) 100 mg/dL (NEGATIVE); KETONES,URINE (UA) NEGATIVE (NEGATIVE); LEUKOCYTE ESTERASE, URINE MODERATE (NEGATIVE); NITRITE,URINE NEGATIVE (NEGATIVE); OCCULT BLOOD,URINE LARGE (NEGATIVE); PH,URINE 5.5 PH (5.0-7.5); PROTEIN,URINE 100 mg/dL (NEGATIVE); UROBILINOGEN,URINE 0.2 (NORMAL) E.U./dL (NORMAL)
[2022-05-23 15:52] LABS: CLARITY,URINE CLOUDY (CLEAR)
[2022-05-23 15:58] LABS: AMORPHOUS SEDIMENT,UR Few /LPF; BACTERIA,URINE Many /HPF (None Seen); RBC,URINE TNTC /HPF (0-5); SQUAMOUS EPITHELIAL CELL,UR FEW Squamous (<= Few); WBC,URINE >25 /HPF (0-5)
[2022-05-23 15:58] LABS: ALBUMIN 3.3 g/dL (3.2-5.5); ALBUMIN/GLOBULIN RATIO 0.9 (1.0-2.2); ALKALINE PHOSPHATASE 157 IU/L (42-121); ALT ALANINE AMINOTRANSFERASE 12 IU/L (10-60); AST ASPARTATE AMINOTRANSFERASE 13 IU/L (10-42); BILIRUBIN,TOTAL < 0.2 mg/dL (0.2-1.0); BUN - BLOOD UREA NITROGEN 45 mg/dL (6-20); CALCIUM 9.2 mg/dL (8.5-10.3); CARBON DIOXIDE - CO2 22 mmol/L (21-32); CHLORIDE 103 mmol/L (101-111); CREATININE 2.5 mg/dL (0.4-1.0); GFR - MDRD 18 (>89); GLUCOSE 279 mg/dL (70-100); POTASSIUM 5.1 mmol/L (3.5-5.0); SODIUM 134 mmol/L (135-145)
== END 2022-05-23 15:34 | disposition home or self-care (01) ==
LOC: LAB 15:33
PROVIDERS: ATTEND Internal Medicine Hematology & Oncology
DX: C56.9 Malignant neoplasm of unspecified ovary (principal)
CPT/HCPCS: 36415; 80053; 81001; 85025; 86304; 87077; 87086; 87181

== ENCOUNTER 2022-07-04 12:58 | Outpatient (CLI) | payer MEDICARE ==
[2022-07-04 13:15] LABS: BASOPHILS # (AUTO) 0.1 10^3/uL (0.0-0.1); BASOPHILS % (AUTO) 1.3 %; EOSINOPHILS # (AUTO) 0.1 10^3/uL (0.0-0.7); EOSINOPHILS % (AUTO) 1.3 %; HCT - HEMATOCRIT 34.6 % (37.0-47.0); HGB - HEMOGLOBIN 11.1 g/dL (12.0-16.0); LYMPHOCYTES % (AUTO) 18.1 %; MEAN CORPUSCULAR HEMOGLOBIN 31.1 pg (27.0-31.0); MEAN CORPUSCULAR HGB CONC 32.1 g/dL (32.0-36.0); MEAN CORPUSCULAR VOLUME 96.9 fL (81.0-99.0); MONOCYTES # (AUTO) 0.7 10^3/uL (0.0-1.0); MONOCYTES % (AUTO) 12.5 %; NEUTROPHILS # (AUTO) 3.7 10^3/uL (1.5-6.6); NEUTROPHILS % (AUTO) 66.6 %; PLT - PLATELET COUNT 206 10^3/uL (130-450); RED BLOOD COUNT 3.57 10^6/uL (4.20-5.40); RED CELL DISTRIBUTION WIDTH 13.3 % (12.0-15.0); WHITE BLOOD COUNT 5.6 x10^3/uL (4.8-10.8)
[2022-07-04 13:24] LABS: BILIRUBIN,URINE NEGATIVE (NEGATIVE); CLARITY,URINE CLOUDY (CLEAR); GLUCOSE, URINE (UA) NEGATIVE (NEGATIVE); KETONES,URINE (UA) NEGATIVE (NEGATIVE); LEUKOCYTE ESTERASE, URINE MODERATE (NEGATIVE); NITRITE,URINE NEGATIVE (NEGATIVE); OCCULT BLOOD,URINE TRACE-INTA (NEGATIVE); PH,URINE 5.5 PH (5.0-7.5); PROTEIN,URINE 100 mg/dL (NEGATIVE); UROBILINOGEN,URINE 0.2 (NORMAL) E.U./dL (NORMAL)
[2022-07-04 13:38] LABS: RBC,URINE 0-5 /HPF (0-5); SQUAMOUS EPITHELIAL CELL,UR RARE Squamous (<= Few); WBC,URINE >25 /HPF (0-5)
[2022-07-04 13:39] LABS: BACTERIA,URINE Few /HPF (None Seen)
[2022-07-04 13:51] LABS: ALBUMIN/GLOBULIN RATIO 0.8 (1.0-2.2); BILIRUBIN,TOTAL 0.2 mg/dL (0.2-1.0); CALCIUM 8.5 mg/dL (8.5-10.3); CREATININE 1.7 mg/dL (0.4-1.0); POTASSIUM 4.4 mmol/L (3.5-5.0); TOTAL PROTEIN 6.9 g/dL (6.7-8.2)
== END 2022-07-04 12:59 | disposition home or self-care (01) ==
LOC: LAB 12:58
PROVIDERS: ATTEND Internal Medicine Hematology & Oncology
DX: C56.9 Malignant neoplasm of unspecified ovary (principal)
CPT/HCPCS: 36415; 80053; 81001; 85025; 86304; 87077; 87086; 87181

== ENCOUNTER 2022-07-29 11:59 | Outpatient (CLI) | payer MEDICARE ==
[2022-07-29 12:35] LABS: CHOL/HDL RATIO 4.6 (<4.4); CHOLESTEROL 254 mg/dL; HDL CHOLESTEROL 55 mg/dL; LDL CHOLESTEROL,CALCULATED 125 mg/dL; LDL/HDL RATIO 2.3 (<4.4); TRIGLYCERIDES 370 mg/dL; VLDL CHOLESTEROL 74 mg/dL
[2022-07-29 12:47] LABS: THYROID STIMULATING HORMONE 3.54 uIU/mL (0.34-5.60)
[2022-07-29 12:50] LABS: ESTIMATED AVERAGE GLUCOSE 151 mg/dL (70-100); HEMOGLOBIN A1c% 6.9 % (4.27-6.07)
== END 2022-07-29 12:00 | disposition home or self-care (01) ==
LOC: LAB 11:59
PROVIDERS: ATTEND Physician Assistant Medical
DX: E78.5 Hyperlipidemia, unspecified (principal); E11.8 Type 2 diabetes mellitus with unspecified complications
CPT/HCPCS: 36415; 80061; 83036; 83721; 84443

== ENCOUNTER 2022-08-15 13:16 | Outpatient (CLI) | payer MEDICARE ==
[2022-08-15 13:36] LABS: BASOPHILS # (AUTO) 0.1 10^3/uL (0.0-0.1); BASOPHILS % (AUTO) 1.2 %; EOSINOPHILS # (AUTO) 0.1 10^3/uL (0.0-0.7); EOSINOPHILS % (AUTO) 2.2 %; LYMPHOCYTES # (AUTO) 1.1 10^3/uL (1.5-3.5); LYMPHOCYTES % (AUTO) 18.4 %; MEAN CORPUSCULAR HEMOGLOBIN 30.7 pg (27.0-31.0); MEAN CORPUSCULAR HGB CONC 32.4 g/dL (32.0-36.0); MEAN PLATELET VOLUME 9.7 fL (7.9-10.8); MONOCYTES # (AUTO) 0.4 10^3/uL (0.0-1.0); MONOCYTES % (AUTO) 6.4 %; NEUTROPHILS # (AUTO) 4.3 10^3/uL (1.5-6.6); NEUTROPHILS % (AUTO) 71.6 %; PLT - PLATELET COUNT 263 10^3/uL (130-450); RED BLOOD COUNT 3.58 10^6/uL (4.20-5.40); RED CELL DISTRIBUTION WIDTH 13.5 % (12.0-15.0); WHITE BLOOD COUNT 5.9 x10^3/uL (4.8-10.8)
[2022-08-15 13:45] LABS: BILIRUBIN,URINE NEGATIVE (NEGATIVE); GLUCOSE, URINE (UA) NEGATIVE (NEGATIVE); KETONES,URINE (UA) NEGATIVE (NEGATIVE); LEUKOCYTE ESTERASE, URINE SMALL (NEGATIVE); NITRITE,URINE NEGATIVE (NEGATIVE); OCCULT BLOOD,URINE SMALL (NEGATIVE); PH,URINE 5.5 PH (5.0-7.5); PROTEIN,URINE 100 mg/dL (NEGATIVE); UROBILINOGEN,URINE 0.2 (NORMAL) E.U./dL (NORMAL)
[2022-08-15 13:46] LABS: CLARITY,URINE SL. CLOUDY (CLEAR)
[2022-08-15 13:52] LABS: BACTERIA,URINE Few /HPF (None Seen); RBC,URINE 0-5 /HPF (0-5); SQUAMOUS EPITHELIAL CELL,UR FEW Squamous (<= Few); WBC,URINE >25 /HPF (0-5)
[2022-08-15 13:56] LABS: ALBUMIN 3.3 g/dL (3.2-5.5); ALBUMIN/GLOBULIN RATIO 0.8 (1.0-2.2); BILIRUBIN,TOTAL 0.6 mg/dL (0.2-1.0); CALCIUM 9.2 mg/dL (8.5-10.3); CREATININE 2.2 mg/dL (0.4-1.0); POTASSIUM 4.7 mmol/L (3.5-5.0); TOTAL PROTEIN 7.2 g/dL (6.7-8.2)
== END 2022-08-15 13:17 | disposition home or self-care (01) ==
LOC: LAB 13:16
PROVIDERS: ATTEND Internal Medicine Hematology & Oncology
DX: C56.9 Malignant neoplasm of unspecified ovary (principal)
CPT/HCPCS: 36415; 80053; 81001; 85025; 86304; 87086

== ENCOUNTER 2022-08-31 14:11 | Outpatient (CLI) | payer MEDICARE ==
--- NOTE | 2022-09-01 13:35 | Ultrasound Report ---
PROCEDURE: Carotid Doppler Complete INDICATIONS: CHRONIC CEREBROVASCULAR ACCIDENT TECHNIQUE: Color and pulse Doppler interrogation was performed of both carotid systems, with image documentation and velocity measurements. COMPARISON: CTA neck 08/19/2017 FINDINGS: Right side: Brachial blood pressure: 110/62 mm Hg. Common carotid artery peak systolic velocity: 86 cm/sec. Internal carotid artery peak systolic velocity: 140 cm/sec. Internal carotid artery end diastolic velocity: 37 cm/sec. External carotid artery peak systolic velocity: 93 cm/sec. ICA/CCA peak systolic ratio: 1.6 . Emmanuel scale imaging description: Plaque at bifurcation Percent internal carotid artery stenosis: 50-69% stenosis. Vertebral artery: Flow direction is antegrade. Left side: Brachial blood pressure: 114/50 mm Hg. Common carotid artery peak systolic velocity: 82 cm/sec. Internal carotid artery peak systolic velocity: 135 cm/sec. Internal carotid artery end diastolic velocity: 34 cm/sec. External carotid artery peak systolic velocity: 123 cm/sec. ICA/CCA peak systolic ratio: 1.7 . Emmanuel scale imaging description: Mild plaque at the bifurcation Percent internal carotid artery stenosis: 50-69% stenosis. Vertebral artery: Flow direction is antegrade. IMPRESSION: 1. In the right internal carotid artery, there is 50-69% stenosis based on peak systolic velocity cri teria. 2. In the left internal carotid artery, there is 50-69% stenosis based on peak systolic velocity crit eria. 3. Antegrade blood flow within the right vertebral artery. 4. Antegrade blood flow within the left vertebral artery. The estimate of stenosis included in the report of the imaging study was calculated using the [facility]-end orsed standards of carotid artery stenosis. Reviewed by: Kati Morales MD on 09/01/2022 1:33 PM PDT Approved by: Kati Morales MD on 09/01/2022 1:33 PM PDT Station ID: [id number]
== END 2022-08-31 14:12 | disposition home or self-care (01) ==
LOC: DI 14:11
PROVIDERS: ATTEND Physician Assistant Medical
DX: I65.23 Occlusion and stenosis of bilateral carotid arteries (principal); I63.89 Other cerebral infarction; H53.40 Unspecified visual field defects
CPT/HCPCS: 93880

== ENCOUNTER 2022-09-20 10:38 | Outpatient (CLI) | payer MEDICARE ==
[2022-09-20 10:54] LABS: HCT - HEMATOCRIT 32.1 % (37.0-47.0); HGB - HEMOGLOBIN 10.5 g/dL (12.0-16.0)
[2022-09-20 11:13] LABS: CREATININE 2.6 mg/dL (0.4-1.0); POTASSIUM 4.1 mmol/L (3.5-5.0)
[2022-09-20 11:28] LABS: FERRITIN 165.2 ng/mL (11.0-306.8)
[2022-09-20 12:05] LABS: CREATININE,URINE 166.3 mg/dL; MICROALBUM/CREATININE RATIO,UR 1232.1 ug/mg (<30.0); MICROALBUMIN,URINE 204.9 mg/dL (0-300.0)
== END 2022-09-20 10:39 | disposition home or self-care (01) ==
LOC: LAB 10:38
PROVIDERS: ATTEND Internal Medicine Nephrology
DX: N18.4 Chronic kidney disease, stage 4 (severe) (principal); D63.1 Anemia in chronic kidney disease
CPT/HCPCS: 36415; 80048; 82043; 82306; 82570; 82728; 83540; 83970; 84466; 85014; 85018

== ENCOUNTER 2022-11-23 06:58 | Outpatient (CLI) | payer MEDICARE | END 2022-11-23 06:59 | disposition critical access hospital (66) | LOC: EMS 06:58 | DX: R53.1 Weakness (principal); R46.4 Slowness and poor responsiveness | CPT/HCPCS: A0425; A0429 ==

== ENCOUNTER 2022-11-23 07:02 | Emergency (ER) | payer MEDICARE ==
[2022-11-23] MEDS ORDERED: SODIUM CHLORIDE 0.9% 1,000 ML IV STA (07:28)
--- NOTE | 2022-11-23 07:31 | ED Physician Documentation ---
History of Present Illness - Stated complaint Stated Complaint: WEAKNESS - Chief complaint Chief Complaint: General - History obtained from History obtained from: Patient - History of Present Illness Timing: Today Pain level max: 6 Pain level now: 6 - Additonal information Additional information: Patient is an 82-year-old female with a history of a left nephrostomy tube and a colostomy. The patient states that she has been trying to exercise more recently and has been trying to walk more recently. She states that this morning she woke up and both of her feet hurt. She states that she has pain with standing. Pain is along the bottom of her feet. She states is not painful unless she moves or stands. No fevers. No chills. No cough. No congestion. No nausea, vomiting, diarrhea. She states that her nephrostomy might have slightly less output than usual and states that her colostomy output is slightly more runny. No blood. 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: None : Incontinence HEENT: Chronic vision loss, Other Psych: Depression Musculoskeletal: Osteoarthritis Derm: None - Past Surgical History Past Surgical History: Yes General: Cholecystectomy, Appendectomy, Bowel surgery Ortho: Hip replacement, Other /TAFE REGISTRAR: Hysterectomy HEENT: Cataracts, Tonsil/Adenoidectomy - Present Medications Home Medications: Ambulatory Orders Medication Instructions Recorded Confirmed Insulin Glargine [Lantus Solostar] 20 unit SUBQ DAILY 08/30/12 11/23/22 Metoprolol Tartrate [Lopressor] 12.5 mg PO BID 08/30/12 11/23/22 Multivitamin [Multivitamins] 1 each PO DAILY 02/12/16 11/23/22 Acetaminophen [Tylenol Extra 1 each PO Q6HR PRN 11/27/19 11/23/22 Strength] Cefpodoxime Proxetil [Vantin] 100 mg PO Q12H #20 tablet 11/23/22 Citalopram [CeleXA] 40 mg PO DAILY 11/23/22 11/23/22 HYDROcod/ACETAM 5/325 [[place] 5/325] 1 tab PO DAILY 11/23/22 11/23/22 Insulin Glargine [Lantus Solostar] 15 unit SUBQ HS 11/23/22 11/23/22 Letrozole 2.5 mg PO DAILY 11/23/22 11/23/22 Loperamide [Imodium] 2 mg PO QID PRN 11/23/22 11/23/22 Loratadine [Claritin] 10 mg PO DAILY 11/23/22 11/23/22 Omeprazole Magnesium 20 mg PO DAILY 11/23/22 11/23/22 Tamoxifen Citrate 20 mg PO BID 11/23/22 11/23/22 - Allergies Allergies/Adverse Reactions: Allergies Allergy/AdvReac Type Severity Reaction Status Date / Time No Known Drug Allergies Allergy Verified 11/23/22 07:27 - Social History Does the pt smoke?: No Smoking Status: Never smoker Does the pt drink ETOH?: No Does the pt have substance abuse?: No - Immunizations Immunizations are current?: Yes Immunizations: TDAP current <10years - POLST Patient has POLST: No POLST Status: Full Code PD ED PE NORMAL - Vitals Vital signs reviewed: Yes - General General: Alert and oriented X 3, No acute distress - HEENT HEENT: PERRL, Moist mucous membranes - Neck Neck: Supple, no meningeal sign - Cardiac Cardiac: RRR, Strong equal pulses - Respiratory Respiratory: No respiratory distress, Clear bilaterally - Abdomen Abdomen: Soft, Non tender, Non distended, Other (Colostomy in the left lower quadrant without signs of infection. Nephroscopy in the left flank without signs of infection on the skin.) - Derm Derm: Warm and dry - Extremities Extremities: No deformity, No edema, No calf tenderness / cord, Other (Bilateral feet - No deformity. No bony tenderness over the dorsum of the foot. She has tenderness along the plantar aspect of the foot, along the plantar fascia. This reproduces her pain. Pain increases with stretching of the plantar fascia. N eurovascular intact.) - Neuro Neuro: Alert and oriented X 3 - Psych Psych: Normal mood, Normal affect Results - Vitals Vitals: Vital Signs - 24 hr 11/23/22 11/23/22 07:07 09:11 Temperature 36.3 C L Heart Rate 75 78 Respiratory 20 18 Rate Blood Pressure 114/55 L 131/54 H O2 Saturation 93 98 Oxygen O2 Source Room air - Labs Labs: Laboratory Tests 11/23/22 11/23/22 11/23/22 07:47 07:47 08:08 WBC 11.0 H RBC 3.36 L Hgb 10.6 L Hct 33.1 L MCV 98.5 MCH 31.5 H MCHC 32.0 RDW 13.1 Plt Count 211 MPV 9.8 Neut # (Auto) 8.6 H Lymph # (Auto) 1.0 L [place] # (Auto) 1.1 H Eos # (Auto) 0.1 Baso # (Auto) 0.1 Absolute Nucleated RBC 0.00 Nucleated RBC % 0.0 Sodium 132 L Potassium 5.2 H Chloride 101 Carbon Dioxide 22 Anion Gap 9.0 BUN 33 H Creatinine 2.8 H Estimated GFR (MDRD) 16 L Glucose 250 H Calcium 9.1 Total Bilirubin 0.4 AST 11 ALT 5 L Alkaline Phosphatase 123 H Total Protein 6.9 Albumin 3.4 Globulin 3.5 Albumin/Globulin Ratio 1.0 Lipase 5 L Urine Color YELLOW Urine Clarity CLOUDY Urine pH 5.5 Ur Specific [place] 1.020 Urine Protein 100 H Urine Glucose (UA) NEGATIVE Urine Ketones NEGATIVE Urine Occult Blood LARGE H Urine Nitrite NEGATIVE Urine Bilirubin NEGATIVE Urine Urobilinogen 0.2 (NORMAL) Ur Leukocyte Esterase LARGE H Urine RBC TNTC H Urine WBC >25 H Urine WBC Clumps PRESENT Ur Squamous Epith Cells NONE SEEN Urine Bacteria Many H Ur Microscopic Review INDICATED Urine Culture Comments INDICATED PD Medical Decision Making - ED course Complexity details: reviewed results, re-evaluated patient, considered differential, d/w patient, d/w family Reviewed Lab Results: Patient was also given IV fluids, has a chronic mild hyponatremia and hyperkalemia. She has chronic renal failure as well, laboratory evaluation not significantly altered from her normal. ED course: Patient is very well-appearing, nontoxic. Afebrile. No hypoxia. No respiratory distress. No evidence of sepsis. Given Rocephin IV for the UTI. We will place on oral antibiotics for home. She also appears to have plantar fasciitis of the bilateral feet due to increased activity recently. Recommend that she change her shoes, ice the feet and stretch the feet. Patient recently started taking longer walks around her block. No indication for acute x-rays. No bony tenderness. No significant swelling. No abdominal pain, no indication for emergent imaging of the abdomen/kidneys. We will have her follow-up with her doctor for further care. Patient counseled regarding signs and symptoms for which I believe and urgent re-evaluation would be necessary. Patient with good understanding of and agreement to plan and is comfortable going home at this time This document was made in part using voice recognition software. While efforts are made to proofread this document, sound alike and grammatical errors may occur. Departure - Departure Disposition: 01 Home, Self Care Clinical Impression: Dehydration, Plantar fasciitis Urinary tract infection Qualifiers: Urinary tract infection type: acute cystitis Hematuria presence: without hematuria Qualified Code(s): N30.00 - Acute cystitis without hematuria Condition: Good Instructions: ED Plantar Fasciitis, ED UTI Cystitis Female Follow-Up: Melony Cain PA-C [Primary Care Provider] - Within 1 week Prescriptions: Cefpodoxime Proxetil [Vantin] 100 mg PO Q12H #20 tablet Comments: Please take all antibiotics until gone. Please follow-up with your doctor for further care. Please return if you develop fevers, vomiting or other new or worrisome symptoms. Make sure you are drinking plenty of water. You should have your blood work rechecked with your doctor next week as your kidney function is slightly worse than before, but this is usually due to dehydration. You also appear to have plantar fasciitis in your feet. Please make sure that you buy some new shoes or at least new insoles for your shoes. Try to limit your wearing of slippers is much as possible as they do not have any support for your foot arches and can worsen the plantar fasciitis. You can try freezing a water bottle and rolling this along the bottom of your feet as this can often help decrease the inflammation and stretch the plantar fascia. A tennis ball under your foot can help do this as well. Your prescriptions were sent to [facility]. Forms: PCP List Discharge Date/Time: 11/23/22 09:44
[2022-11-23] MEDS ORDERED: KETOROLAC 30 MG/ML VIAL IVP STA (07:33)
[2022-11-23 07:55] LABS: BASOPHILS # (AUTO) 0.1 10^3/uL (0.0-0.1); BASOPHILS % (AUTO) 0.9 %; EOSINOPHILS # (AUTO) 0.1 10^3/uL (0.0-0.7); EOSINOPHILS % (AUTO) 0.5 %; HCT - HEMATOCRIT 33.1 % (37.0-47.0); HGB - HEMOGLOBIN 10.6 g/dL (12.0-16.0); LYMPHOCYTES % (AUTO) 9.1 %; MEAN CORPUSCULAR HEMOGLOBIN 31.5 pg (27.0-31.0); MEAN CORPUSCULAR VOLUME 98.5 fL (81.0-99.0); MEAN PLATELET VOLUME 9.8 fL (7.9-10.8); MONOCYTES # (AUTO) 1.1 10^3/uL (0.0-1.0); MONOCYTES % (AUTO) 10.1 %; NEUTROPHILS # (AUTO) 8.6 10^3/uL (1.5-6.6); NEUTROPHILS % (AUTO) 78.9 %; PLT - PLATELET COUNT 211 10^3/uL (130-450); RED BLOOD COUNT 3.36 10^6/uL (4.20-5.40); RED CELL DISTRIBUTION WIDTH 13.1 % (12.0-15.0)
[2022-11-23 08:09] LABS: ALBUMIN 3.4 g/dL (3.2-5.5); BILIRUBIN,TOTAL 0.4 mg/dL (0.2-1.0); CALCIUM 9.1 mg/dL (8.5-10.3); CREATININE 2.8 mg/dL (0.6-1.3); POTASSIUM 5.2 mmol/L (3.5-4.5); TOTAL PROTEIN 6.9 g/dL (6.4-8.9)
[2022-11-23] MEDS ORDERED: MORPHINE 2 MG/ML CARPUJECT IVP STA (08:15)
[2022-11-23 08:23] LABS: BILIRUBIN,URINE NEGATIVE (NEGATIVE); GLUCOSE, URINE (UA) NEGATIVE (NEGATIVE); KETONES,URINE (UA) NEGATIVE (NEGATIVE); LEUKOCYTE ESTERASE, URINE LARGE (NEGATIVE); NITRITE,URINE NEGATIVE (NEGATIVE); OCCULT BLOOD,URINE LARGE (NEGATIVE); PH,URINE 5.5 PH (5.0-7.5); PROTEIN,URINE 100 mg/dL (NEGATIVE); UROBILINOGEN,URINE 0.2 (NORMAL) E.U./dL (NORMAL)
[2022-11-23 08:24] LABS: CLARITY,URINE CLOUDY (CLEAR)
[2022-11-23 08:38] LABS: BACTERIA,URINE Many /HPF (None Seen); RBC,URINE TNTC /HPF (0-5); SQUAMOUS EPITHELIAL CELL,UR NONE SEEN (<= Few); WBC CLUMPS,URINE PRESENT; WBC,URINE >25 /HPF (0-5)
[2022-11-23] MEDS ORDERED: cefTRIAXone 1 GM VIAL IVP STA (08:57)
[2022-11-23 09:17] VITALS: BP 131/54; O2SAT 98
== END 2022-11-23 09:44 | disposition home or self-care (01) ==
LOC: EDUNIT# → ED 07:02
DX: N30.00 Acute cystitis without hematuria (principal); M72.2 Plantar fascial fibromatosis; E86.0 Dehydration; I10 Essential (primary) hypertension; E11.9 Type 2 diabetes mellitus without complications; Z79.4 Long term (current) use of insulin; Z79.899 Other long term (current) drug therapy
CPT/HCPCS: 36415; 80053; 81001; 81003; 83690; 85025; 87077; 87086; 87181; 96361; 96374; 96375; 99283

== ENCOUNTER 2022-11-27 21:08 | Outpatient (CLI) | payer MEDICARE | END 2022-11-27 21:09 | disposition critical access hospital (66) | LOC: EMS 21:08 | DX: R41.0 Disorientation, unspecified (principal); M54.9 Dorsalgia, unspecified | CPT/HCPCS: A0425; A0429 ==

== ENCOUNTER 2022-11-27 21:12 | Emergency (ER) | payer MEDICARE ==
[2022-11-27] MEDS ORDERED: SODIUM CHLORIDE 0.9% 1,000 ML IV STA (21:22)
[2022-11-27] MEDS ORDERED: ONDANSETRON 4 MG/2 ML VIAL IVP STA (21:22)
[2022-11-27] MEDS ORDERED: MORPHINE 2 MG/ML CARPUJECT IVP STA (21:23)
--- NOTE | 2022-11-27 21:31 | ED Physician Documentation ---
History of Present Illness - Stated complaint Stated Complaint: CONFUSION - Chief complaint Chief Complaint: Neuro - History obtained from History obtained from: Patient, Family (son) - Additonal information Additional information: 82yF with pmh L nephrostomy, CKD 4, recent ED visit 4 days ago with dx of uti from L nephrostomy urine sample, on day 4 of rocephin/vantin, p/w persistent dysuria, now with new onset ams per son. also with BL back aches/pain. denies fever, hematuria. 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: None : Incontinence HEENT: Chronic vision loss, Other Psych: Depression Musculoskeletal: Osteoarthritis Derm: None - Past Surgical History Past Surgical History: Yes General: Cholecystectomy, Appendectomy, Bowel surgery Ortho: Hip replacement, Other /CRUSHER SUPERVISOR: Hysterectomy HEENT: Cataracts, Tonsil/Adenoidectomy - Present Medications Home Medications: Ambulatory Orders Medication Instructions Recorded Confirmed Insulin Glargine [Lantus Solostar] 20 unit SUBQ DAILY 08/30/12 11/27/22 Metoprolol Tartrate [Lopressor] 12.5 mg PO BID 08/30/12 11/27/22 Multivitamin [Multivitamins] 1 each PO DAILY 02/12/16 11/27/22 Acetaminophen [Tylenol Extra 1 each PO Q6HR PRN 11/27/19 11/27/22 Strength] Cefpodoxime Proxetil [Vantin] 100 mg PO Q12H #20 tablet 11/23/22 11/27/22 Citalopram [CeleXA] 40 mg PO DAILY 11/23/22 11/27/22 HYDROcod/ACETAM 5/325 [[place] 5/325] 1 tab PO DAILY PRN 11/23/22 11/27/22 Insulin Glargine [Lantus Solostar] 15 unit SUBQ HS 11/23/22 11/27/22 Letrozole 2.5 mg PO DAILY 11/23/22 11/27/22 Loperamide [Imodium] 2 mg PO BID 11/23/22 11/27/22 Loratadine [Claritin] 10 mg PO DAILY PRN 11/23/22 11/27/22 Omeprazole Magnesium 20 mg PO DAILY 11/23/22 11/27/22 Tamoxifen Citrate 20 mg PO BID 11/23/22 11/27/22 Cholecalciferol (Vitamin D3) 125 mcg PO OAW 11/27/22 11/27/22 [Vitamin D3] Psyllium Husk [Fiber] See Rx Instructions .ROUTE .COMPLEX 11/27/22 11/27/22 - Allergies Allergies/Adverse Reactions: Allergies Allergy/AdvReac Type Severity Reaction Status Date / Time No Known Drug Allergies Allergy Verified 11/27/22 21:21 - Social History Does the pt smoke?: No Smoking Status: Never smoker Does the pt drink ETOH?: No Does the pt have substance abuse?: No - Immunizations Immunizations are current?: Yes Immunizations: TDAP current <10years - POLST Patient has POLST: No POLST Status: Full Code PD ED PE NORMAL - Vitals Vital signs reviewed: Yes - General General: No acute distress, Well developed/nourished, Other (alert, elderly appearing) - HEENT HEENT: Atraumatic, PERRL, EOMI - Neck Neck: Supple, no meningeal sign - Cardiac Cardiac: RRR - Respiratory Respiratory: No respiratory distress, Clear bilaterally - Abdomen Abdomen: Non tender, Non distended, Other (discomfort to suprapubic palpation. colostomy in place) - Back Back: Other (L nephrostomy with clean dressing in place. straw colored urine in bag) - Derm Derm: Normal color, Warm and dry Results - Vitals Vitals: Vital Signs - 24 hr 11/27/22 11/27/22 11/27/22 21:12 21:15 21:30 Temperature 37.0 C Heart Rate 89 80 85 Respiratory 18 21 20 Rate Blood Pressure 109/58 L 111/47 L 109/58 L O2 Saturation 100 98 99 11/27/22 11/27/22 11/27/22 22:05 22:07 23:35 Temperature Heart Rate 81 85 83 Respiratory 20 23 26 H Rate Blood Pressure 98/67 93/64 126/59 L O2 Saturation 100 98 96 11/27/22 11/28/22 11/28/22 23:36 01:00 04:00 Temperature Heart Rate 81 83 82 Respiratory 19 18 18 Rate Blood Pressure 105/70 104/51 L 110/51 L O2 Saturation 96 97 93 11/28/22 06:00 Temperature Heart Rate 79 Respiratory 19 Rate Blood Pressure 115/58 L O2 Saturation 95 Oxygen O2 Source Room air - Labs Labs: Microbiology 11/27/22 23:04 Occult Blood - Final Stool Laboratory Tests 11/27/22 11/27/22 11/27/22 21:34 21:34 22:18 WBC 19.8 H RBC 3.16 L Hgb 9.7 L Hct 30.9 L MCV 97.8 MCH 30.7 MCHC 31.4 L RDW 12.8 Plt Count 281 MPV 9.9 Neut # (Auto) 18.2 H Lymph # (Auto) 0.6 L [place] # (Auto) 0.5 Eos # (Auto) 0.1 Baso # (Auto) 0.1 Absolute Nucleated RBC 0.00 Nucleated RBC % 0.0 Sodium 129 L Potassium 4.8 Chloride 99 L Carbon Dioxide 22 Anion Gap 8.0 BUN 30 H Creatinine 2.4 H Estimated GFR (MDRD) 19 L Glucose 234 H Calcium 8.4 L Total Bilirubin 0.4 AST 10 ALT 4 L Alkaline Phosphatase 110 Total Protein 6.0 L Albumin 2.4 L Globulin 3.6 Albumin/Globulin Ratio 0.7 L Lipase 21 L Urine Color LT. YELLOW Urine Clarity CLOUDY Urine pH 5.5 Ur Specific [place] 1.025 Urine Protein >=300 H Urine Glucose (UA) NEGATIVE Urine Ketones NEGATIVE Urine Occult Blood LARGE H Urine Nitrite POSITIVE H Urine Bilirubin NEGATIVE Urine Urobilinogen 0.2 (NORMAL) Ur Leukocyte Esterase MODERATE H Urine RBC TNTC H Urine WBC >25 H Ur Squamous Epith Cells NONE SEEN Urine Bacteria Moderate H Urine Yeast PRESENT Ur Microscopic Review INDICATED Urine Culture Comments INDICATED PD Medical Decision Making - ED course ED course: 82yF presents to the ED 4 days after diagnosis of uti, appropriately treated with rocephin/vantin, with persistent dysuria and worsening ams/body aches/pain. Urine microbiology from L nephrostomy site grew klebsiella sensitive to rocephin. Plan to recheck labs, urine, treat pain/nausea with IV morphine and zofran and reevaluate. Patient with worsening anemia (hb 9.7, down from 10.6 4 days ago), with light brown stool on ZEE. FOBT sent. Leukocytosis with WBC 19.8, increased from 11 4 days ago. Given her confusion and persistently positive u/a (drawn from nephrostomy site), she needs admission. d/w Dr. Aquino, telehealth who requested we transfer to [facility] where patient receives her oncology, nephrology colostomy and primary care. Our urologist Dr. Wills can't admit here since no ability to exchange the nephrostomy tube. d/w [facility] - no beds available but they should have one in the morning and will call us back. plan to endorse to incoming daytime ED MD at 7am shift change. Departure - Departure Disposition: 02 Transfer Acute Care Hosp Clinical Impression: Back pain, Nausea, Pyelonephritis, Anemia, Leukocytosis, Encephalopathy Condition: Serious Forms: PCP List
[2022-11-27 21:41] LABS: BASOPHILS # (AUTO) 0.1 10^3/uL (0.0-0.1); BASOPHILS % (AUTO) 0.6 %; EOSINOPHILS # (AUTO) 0.1 10^3/uL (0.0-0.7); EOSINOPHILS % (AUTO) 0.6 %; HCT - HEMATOCRIT 30.9 % (37.0-47.0); HGB - HEMOGLOBIN 9.7 g/dL (12.0-16.0); LYMPHOCYTES # (AUTO) 0.6 10^3/uL (1.5-3.5); LYMPHOCYTES % (AUTO) 3.2 %; MEAN CORPUSCULAR HEMOGLOBIN 30.7 pg (27.0-31.0); MEAN CORPUSCULAR HGB CONC 31.4 g/dL (32.0-36.0); MEAN CORPUSCULAR VOLUME 97.8 fL (81.0-99.0); MEAN PLATELET VOLUME 9.9 fL (7.9-10.8); MONOCYTES # (AUTO) 0.5 10^3/uL (0.0-1.0); MONOCYTES % (AUTO) 2.6 %; NEUTROPHILS # (AUTO) 18.2 10^3/uL (1.5-6.6); NEUTROPHILS % (AUTO) 91.5 %; PLT - PLATELET COUNT 281 10^3/uL (130-450); RED BLOOD COUNT 3.16 10^6/uL (4.20-5.40); RED CELL DISTRIBUTION WIDTH 12.8 % (12.0-15.0); WHITE BLOOD COUNT 19.8 x10^3/uL (4.8-10.8)
[2022-11-27 21:51] LABS: ALBUMIN 2.4 g/dL (3.2-5.5); ALBUMIN/GLOBULIN RATIO 0.7 (1.0-2.2); BILIRUBIN,TOTAL 0.4 mg/dL (0.2-1.0); CALCIUM 8.4 mg/dL (8.5-10.3); CREATININE 2.4 mg/dL (0.4-1.0); POTASSIUM 4.8 mmol/L (3.5-5.0)
[2022-11-27 22:28] LABS: BILIRUBIN,URINE NEGATIVE (NEGATIVE); GLUCOSE, URINE (UA) NEGATIVE (NEGATIVE); KETONES,URINE (UA) NEGATIVE (NEGATIVE); LEUKOCYTE ESTERASE, URINE MODERATE (NEGATIVE); NITRITE,URINE POSITIVE (NEGATIVE); OCCULT BLOOD,URINE LARGE (NEGATIVE); PH,URINE 5.5 PH (5.0-7.5); PROTEIN,URINE >=300 mg/dL (NEGATIVE); UROBILINOGEN,URINE 0.2 (NORMAL) E.U./dL (NORMAL)
[2022-11-27 22:29] LABS: CLARITY,URINE CLOUDY (CLEAR)
[2022-11-27 22:37] LABS: BACTERIA,URINE Moderate /HPF (None Seen); RBC,URINE TNTC /HPF (0-5); SQUAMOUS EPITHELIAL CELL,UR NONE SEEN (<= Few); WBC,URINE >25 /HPF (0-5); YEAST,URINE PRESENT
[2022-11-27] MEDS ORDERED: cefTRIAXone 1 GM in SODIUM CHLORIDE 0.9% MINIBAG 100 ML IV STA (22:39)
[2022-11-27] MEDS ORDERED: cefTRIAXone 1 GM VIAL ONE (23:16)
[2022-11-27] MEDS ORDERED: MORPHINE 2 MG/ML CARPUJECT IVP PRN (23:35)
--- NOTE | 2022-11-27 23:42 | CT Report ---
PROCEDURE: ABDOMEN/PELVIS WO INDICATIONS: abd pain, dysuria, hx L nephrostomy, uti dx 4d ago TECHNIQUE: A CT scan of the abdomen and pelvis was performed without the use of intravenous contrast. Images we re recorded and evaluated at appropriate window settings. Reformats: coronal and sagittal. For radiat ion dose reduction, the following was used: automated exposure control, adjustment of mA and/or kV ac cording to patient size. COMPARISON: MRCP 08/16/2018. CT abdomen 08/18/2017. CT abdomen/pelvis 12/21/2015. FINDINGS: Image quality: Streak artifact limits evaluation of the pelvis. Lung bases and heart: Small right pleural effusion with atelectasis of the right lung base. Liver: No solid mass. Gallbladder and biliary tree: Surgically absent. No biliary dilation, accounting for post-cholecystec dang state. Spleen: No splenomegaly. Pancreas: No pancreatic ductal dilation. Adrenals: No adrenal nodule. Kidneys and ureters: Left-sided percutaneous nephrostomy tube is seen with a catheter within the ana l pelvis. No left hydronephrosis. Mild fat stranding in the renal sinus fat. There is mild right-side d hydronephrosis to level of the pelvic brim. The degree of right-sided hydronephrosis does not appea r significantly changed when compared to the prior MRCP from 08/16/2018. Bowel and peritoneum: A left-sided colostomy is present. There is long segment of bowel thickening in volving the entire descending colon with mild pericolonic fat stranding that is suspicious for a nons pecific colitis. No signs of small bowel obstruction. No significant ascites or pneumoperitoneum. Mul tiple calcified peritoneal nodules are present throughout the abdomen and pelvis, mildly increased in density when compared to the prior CT from 12/21/2015 and 08/18/2017. Lymph nodes: No central or retroperitoneal adenopathy. Vessels: No infrarenal aortic aneurysm. PELVIS Reproductive organs: Not well evaluated. Bladder: Not well evaluated due to metal streak artifact. Pelvic lymph nodes: No pelvic adenopathy by size criteria. Bones: Prominent streak artifact is seen in the pelvis related to bilateral hip arthroplasties that o bscures adjacent structures. Multilevel degenerative changes are seen in the included spine. No aggre ssive osseous lesion identified. Other: No significant ventral or inguinal hernia. IMPRESSION: 1.Left-sided percutaneous nephrostomy tube is seen in expected position. No left hydronephrosis. Mild nonspecific left renal peripelvic fat stranding is seen, and pyelitis is not excluded. 2.Mild to moderate right hydronephrosis does not appear significantly changed when compared to the ex am from 08/16/2018. 3.Postsurgical changes from left colostomy. Bowel wall thickening in the descending colon with mild p ericolonic fat stranding is suspicious for a nonspecific colitis. 4.Multiple densely calcified peritoneal nodules in the abdomen and pelvis, which appear mildly increa sed in density when compared to prior exams dating back to at least 12/21/2015. Reviewed by: Dimas Zamora MD on 11/27/2022 11:41 PM PDT Approved by: Dimas Zamora MD on 11/27/2022 11:41 PM PDT Station ID: [id number]
--- NOTE | 2022-11-28 14:31 | ED Physician Documentation ---
ED Addendum - Addendum Addendum: Patient signed out to me by overnight physician. Patient is awaiting transfer to [facility] where she needs replacement of her nephrostomy tube. She is currently receiving IV antibiotics. Patient has a left nephrostomy that was replaced at [facility] on November 08. She was seen on November 23 and found to have a urinary tract infection. She was started on Vantin. She presented last night with worsening symptoms. Urine culture from November 23 is positive for Klebsiella that is sensitive to cephalosporins. No ESBL. [id number] - Updated son and patient. Reviewed work-up from last night at the son's request. He states that his mother still seems not her usual self and has decreased memory as compared to her normal. They are aware that at this time [facility] continues to not have any beds available. I will recheck labs at this time. I have also added a lactic and blood cultures given her elevated white count. Patient remains in the emergency department awaiting transfer. [facility] may have some availability and will reach back out to us this evening. Patient signed out to oncoming provider at shift change.
[2022-11-28 15:19] LABS: ALBUMIN 2.7 g/dL (3.2-5.5)
[2022-11-28 15:25] LABS: BASOPHILS % (AUTO) 0.8 %; HGB - HEMOGLOBIN 9.5 g/dL (12.0-16.0); LYMPHOCYTES % (AUTO) 4.2 %; MEAN CORPUSCULAR HEMOGLOBIN 31.3 pg (27.0-31.0); MEAN CORPUSCULAR HGB CONC 31.7 g/dL (32.0-36.0); MEAN CORPUSCULAR VOLUME 98.7 fL (81.0-99.0); MEAN PLATELET VOLUME 9.9 fL (7.9-10.8); MONOCYTES % (AUTO) 3.3 %; NEUTROPHILS % (AUTO) 88.5 %; PLT - PLATELET COUNT 307 10^3/uL (130-450); RED BLOOD COUNT 3.04 10^6/uL (4.20-5.40); WHITE BLOOD COUNT 18.3 x10^3/uL (4.8-10.8)
[2022-11-28 15:29] LABS: ABNORMAL LYMPHS % (MANUAL) 0 %
[2022-11-28 15:53] LABS: BAND NEUTROPHILS % (MANUAL) 3 %; DIFFERENTIAL COMMENT MANUAL DIFFERENTIAL; EOSINOPHILS # (MANUAL) 0.4 10^3/uL (0-0.7); LYMPHOCYTES # (MANUAL) 1.3 10^3/uL (1.5-3.5); LYMPHOCYTES % (MANUAL) 7 %; MONOCYTES # (MANUAL) 0.7 10^3/uL (0.0-1.0); NEUTROPHILS # (MANUAL) 15.9 10^3/uL (1.5-6.6); PLATELET ESTIMATE, MANUAL NORMAL (130-450,000) (NORMAL); PLATELET MORPHOLOGY NORMAL APPEARANCE (NORMAL); RBC MORPHOLOGY (MULTIPLE) NORMAL APPEARANCE (NORMAL)
[2022-11-28 15:59] LABS: ALBUMIN/GLOBULIN RATIO 0.8 (1.0-2.2); BILIRUBIN,TOTAL 0.4 mg/dL (0.2-1.0); CALCIUM 8.9 mg/dL (8.5-10.3); CREATININE 2.6 mg/dL (0.6-1.3); POTASSIUM 4.7 mmol/L (3.5-4.5); TOTAL PROTEIN 5.9 g/dL (6.4-8.9)
[2022-11-28] MEDS ORDERED: SODIUM CHLORIDE 0.9% 500 ML IV STA (17:57)
[2022-11-28] MEDS ORDERED: cefTRIAXone 1 GM in SODIUM CHLORIDE 0.9% MINIBAG 100 ML IV SCH (21:00)
[2022-11-29 02:16] VITALS: BP 106/45; O2SAT 99
--- NOTE | 2022-11-29 02:26 | ED Physician Documentation ---
ED Addendum - Addendum Addendum: 11/29/22 02:23 I received turnover of care on this patient from Dr. Tam. The patient is also been under the care (in the emergency department on this visit) of Dr. Carlton as well as the initial evaluation by Dr. Tapia. Please see Dr. Tapia's note for the initial and complete history and physical. In brief, this patient has a left nephrostomy tube with active infection of the urine. Outpatient management for this has not resulted in improvement; in fact, the patient presented yesterday because of worsening symptoms and new onset of confusion, as well. We have been looking to transfer this patient to an appropriate facility for further, inpatient management to likely include changing of the nephrostomy tube (this cannot be undertaken at [facility]). I heard from Dr. Nichols, hospitalist at . She accepts patient for transfer to [facility].
[2022-11-29 05:18] LABS: BASOPHILS # (AUTO) 0.1 10^3/uL (0.0-0.1); BASOPHILS % (AUTO) 0.7 %; EOSINOPHILS # (AUTO) 0.2 10^3/uL (0.0-0.7); EOSINOPHILS % (AUTO) 1.1 %; HCT - HEMATOCRIT 28.1 % (37.0-47.0); HGB - HEMOGLOBIN 8.7 g/dL (12.0-16.0); LYMPHOCYTES # (AUTO) 0.8 10^3/uL (1.5-3.5); LYMPHOCYTES % (AUTO) 5.2 %; MEAN CORPUSCULAR HEMOGLOBIN 31.2 pg (27.0-31.0); MEAN CORPUSCULAR VOLUME 100.7 fL (81.0-99.0); MEAN PLATELET VOLUME 10.2 fL (7.9-10.8); MONOCYTES # (AUTO) 0.5 10^3/uL (0.0-1.0); MONOCYTES % (AUTO) 3.4 %; NEUTROPHILS # (AUTO) 12.6 10^3/uL (1.5-6.6); NEUTROPHILS % (AUTO) 87.9 %; PLT - PLATELET COUNT 298 10^3/uL (130-450); RED BLOOD COUNT 2.79 10^6/uL (4.20-5.40); WHITE BLOOD COUNT 14.4 x10^3/uL (4.8-10.8)
[2022-11-29 05:35] LABS: CALCIUM 8.6 mg/dL (8.5-10.3); CREATININE 2.6 mg/dL (0.6-1.3); POTASSIUM 4.7 mmol/L (3.5-4.5)
== END 2022-11-29 04:46 | disposition short-term general hospital (02) ==
LOC: EDUNIT# → ED 21:12
DX: N12 Tubulo-interstitial nephritis, not specified as acute or chronic (principal); D64.9 Anemia, unspecified; G93.40 Encephalopathy, unspecified; Z96.0 Presence of urogenital implants
CPT/HCPCS: 36415; 80048; 80053; 81001; 81003; 82270; 82272; 83605; 83690; 85025; 87040; 87086; 96361; 96365; 96366; 96375; 99285

== ENCOUNTER 2022-12-11 13:02 | Emergency (ER) | payer MEDICARE ==
[2022-12-11] MEDS ORDERED: SODIUM CHLORIDE 0.9% 1,000 ML IV STA (13:40)
--- NOTE | 2022-12-11 13:42 | ED Physician Documentation ---
History of Present Illness - Stated complaint Stated Complaint: FEMALE - Chief complaint Chief Complaint: Abd Pain - History obtained from History obtained from: Patient, Family - History of Present Illness Pain level max: 5 Pain level now: 5 - Additonal information Additional information: Patient is a 82-year-old female who presents to the emergency department complaint of generalized weakness ongoing for the past 2 to 3 days since stopping antibiotics. She has a left-sided nephrostomy tube and a left lower quadrant colostomy. She recently had her nephrostomy tube changed at [facility]. Is not having any fevers. Has had decreased appetite recently. And occasionally has lower abdominal pain, none currently. No cough. No congestion. No vomiting. No diarrhea or constipation. No increased output in the ostomy. Clear yellow urine in the nephrostomy bag. 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 : Incontinence HEENT: Chronic vision loss, Other Psych: Depression Musculoskeletal: Osteoarthritis Derm: None Other Past Medical History: colostomy, nephrostomy - Past Surgical History Past Surgical History: Yes General: Cholecystectomy, Appendectomy, Bowel surgery Ortho: Hip replacement, Other /AUT[employer]ERSHIP PORTER: Hysterectomy HEENT: Cataracts, Tonsil/Adenoidectomy - Present Medications Home Medications: Ambulatory Orders Medication Instructions Recorded Confirmed Insulin Glargine [Lantus Solostar] 20 unit SUBQ DAILY 08/30/12 11/27/22 Metoprolol Tartrate [Lopressor] 12.5 mg PO BID 08/30/12 11/27/22 Multivitamin [Multivitamins] 1 each PO DAILY 02/12/16 11/27/22 Acetaminophen [Tylenol Extra 1 each PO Q6HR PRN 11/27/19 11/27/22 Strength] Cefpodoxime Proxetil [Vantin] 100 mg PO Q12H #20 tablet 11/23/22 11/27/22 Citalopram [CeleXA] 40 mg PO DAILY 11/23/22 11/27/22 HYDROcod/ACETAM 5/325 [[place] 5/325] 1 tab PO DAILY PRN 11/23/22 11/27/22 Insulin Glargine [Lantus Solostar] 15 unit SUBQ HS 11/23/22 11/27/22 Letrozole 2.5 mg PO DAILY 11/23/22 11/27/22 Loperamide [Imodium] 2 mg PO BID 11/23/22 11/27/22 Loratadine [Claritin] 10 mg PO DAILY PRN 11/23/22 11/27/22 Omeprazole Magnesium 20 mg PO DAILY 11/23/22 11/27/22 Tamoxifen Citrate 20 mg PO BID 11/23/22 11/27/22 Cholecalciferol (Vitamin D3) 125 mcg PO OAW 11/27/22 11/27/22 [Vitamin D3] Psyllium Husk [Fiber] See Rx Instructions .ROUTE .COMPLEX 11/27/22 11/27/22 Cefdinir 300 mg PO BID #20 cap 12/11/22 - Allergies Allergies/Adverse Reactions: Allergies Allergy/AdvReac Type Severity Reaction Status Date / Time No Known Drug Allergies Allergy Verified 11/27/22 21:21 - Social History Does the pt smoke?: No Smoking Status: Never smoker Does the pt drink ETOH?: No Does the pt have substance abuse?: No - Immunizations Immunizations are current?: Yes Immunizations: TDAP current <10years - POLST Patient has POLST: No POLST Status: Full Code Results - Vitals Vitals: Vital Signs - 24 hr 12/11/22 12/11/22 12/11/22 13:09 14:05 15:28 Temperature 36.5 C 36.7 C Heart Rate 59 L 58 L 58 L Respiratory 18 18 18 Rate Blood Pressure 99/60 112/59 L 131/65 H O2 Saturation 98 100 98 Oxygen O2 Source Room air - Labs Labs: Laboratory Tests 12/11/22 12/11/22 12/11/22 13:52 13:52 13:52 WBC 9.7 RBC 3.19 L Hgb 9.8 L Hct 31.3 L MCV 98.1 MCH 30.7 MCHC 31.3 L RDW 13.3 Plt Count 289 MPV 9.7 Neut # (Auto) 7.8 H Lymph # (Auto) 1.0 L [place] # (Auto) 0.6 Eos # (Auto) 0.2 Baso # (Auto) 0.1 Absolute Nucleated RBC 0.00 Nucleated RBC % 0.0 Sodium 133 L Potassium 5.0 H Chloride 104 Carbon Dioxide 22 Anion Gap 7.0 BUN 51 H Creatinine 2.6 H Estimated GFR (MDRD) 18 L Glucose 231 H Lactic Acid 1.7 Calcium 8.9 Total Bilirubin 0.3 AST 9 L ALT 5 L Alkaline Phosphatase 101 Total Protein 6.0 L Albumin 2.9 L Globulin 3.1 Albumin/Globulin Ratio 0.9 L Lipase 19 Urine Color Urine Clarity Urine pH Ur Specific [place] Urine Protein Urine Glucose (UA) Urine Ketones Urine Occult Blood Urine Nitrite Urine Bilirubin Urine Urobilinogen Ur Leukocyte Esterase Urine RBC Urine WBC Ur Squamous Epith Cells Urine Bacteria Urine Yeast Ur Microscopic Review Urine Culture Comments 12/11/22 14:03 WBC RBC Hgb Hct MCV MCH MCHC RDW Plt Count MPV Neut # (Auto) Lymph # (Auto) [place] # (Auto) Eos # (Auto) Baso # (Auto) Absolute Nucleated RBC Nucleated RBC % Sodium Potassium Chloride Carbon Dioxide Anion Gap BUN Creatinine Estimated GFR (MDRD) Glucose Lactic Acid Calcium Total Bilirubin AST ALT Alkaline Phosphatase Total Protein Albumin Globulin Albumin/Globulin Ratio Lipase Urine Color YELLOW Urine Clarity CLOUDY Urine pH 5.0 Ur Specific [place] >=1.030 H Urine Protein 100 H Urine Glucose (UA) NEGATIVE Urine Ketones NEGATIVE Urine Occult Blood LARGE H Urine Nitrite NEGATIVE Urine Bilirubin NEGATIVE Urine Urobilinogen 0.2 (NORMAL) Ur Leukocyte Esterase MODERATE H Urine RBC 6-10 H Urine WBC 11-25 H Ur Squamous Epith Cells FEW Squamous Urine Bacteria Few Urine Yeast PRESENT Ur Microscopic Review INDICATED Urine Culture Comments INDICATED Departure - Departure Disposition: Home, Self Care Clinical Impression: Dehydration UTI (urinary tract infection) Qualifiers: Urinary tract infection type: acute cystitis Hematuria presence: without hematuria Qualified Code(s): N30.00 - Acute cystitis without hematuria Condition: Good Instructions: ED Dehydration, ED UTI Cystitis Female Follow-Up: Melony Cain PA-C [Primary Care Provider] - Within 1 week Prescriptions: Cefdinir 300 mg PO BID #20 cap Comments: Take all antibiotics until gone. Please follow-up with your doctor for further care. Please return if you worsen. Your prescriptions were sent to [facility]. Please make sure you are drinking plenty of fluids at home. Forms: PCP List
[2022-12-11 13:59] LABS: BASOPHILS # (AUTO) 0.1 10^3/uL (0.0-0.1); BASOPHILS % (AUTO) 1.1 %; EOSINOPHILS # (AUTO) 0.2 10^3/uL (0.0-0.7); EOSINOPHILS % (AUTO) 1.9 %; HCT - HEMATOCRIT 31.3 % (37.0-47.0); HGB - HEMOGLOBIN 9.8 g/dL (12.0-16.0); LYMPHOCYTES % (AUTO) 10.1 %; MEAN CORPUSCULAR HEMOGLOBIN 30.7 pg (27.0-31.0); MEAN CORPUSCULAR HGB CONC 31.3 g/dL (32.0-36.0); MEAN CORPUSCULAR VOLUME 98.1 fL (81.0-99.0); MEAN PLATELET VOLUME 9.7 fL (7.9-10.8); MONOCYTES # (AUTO) 0.6 10^3/uL (0.0-1.0); MONOCYTES % (AUTO) 5.7 %; NEUTROPHILS # (AUTO) 7.8 10^3/uL (1.5-6.6); NEUTROPHILS % (AUTO) 80.7 %; PLT - PLATELET COUNT 289 10^3/uL (130-450); RED BLOOD COUNT 3.19 10^6/uL (4.20-5.40); RED CELL DISTRIBUTION WIDTH 13.3 % (12.0-15.0); WHITE BLOOD COUNT 9.7 x10^3/uL (4.8-10.8)
[2022-12-11 14:08] LABS: BILIRUBIN,URINE NEGATIVE (NEGATIVE); GLUCOSE, URINE (UA) NEGATIVE (NEGATIVE); KETONES,URINE (UA) NEGATIVE (NEGATIVE); LEUKOCYTE ESTERASE, URINE MODERATE (NEGATIVE); NITRITE,URINE NEGATIVE (NEGATIVE); OCCULT BLOOD,URINE LARGE (NEGATIVE); PROTEIN,URINE 100 mg/dL (NEGATIVE); UROBILINOGEN,URINE 0.2 (NORMAL) E.U./dL (NORMAL)
[2022-12-11 14:13] LABS: BACTERIA,URINE Few /HPF (None Seen); CLARITY,URINE CLOUDY (CLEAR); SQUAMOUS EPITHELIAL CELL,UR FEW Squamous (<= Few)
[2022-12-11 14:14] LABS: YEAST,URINE PRESENT
[2022-12-11 14:17] LABS: ALBUMIN 2.9 g/dL (3.2-5.5); ALBUMIN/GLOBULIN RATIO 0.9 (1.0-2.2); BILIRUBIN,TOTAL 0.3 mg/dL (0.2-1.0); CALCIUM 8.9 mg/dL (8.5-10.3); CREATININE 2.6 mg/dL (0.6-1.3)
[2022-12-11] MEDS ORDERED: cefTRIAXone 1 GM VIAL IVP STA (15:24)
[2022-12-11 16:14] VITALS: BP 129/100; O2SAT 95
--- NOTE | 2022-12-11 20:45 | ED Physician Documentation ---
PD ED PE NORMAL - Vitals Vital signs reviewed: Yes - General General: Alert and oriented X 3, No acute distress, Well developed/nourished - HEENT HEENT: PERRL, Other (Dry lips and tongue) - Neck Neck: Supple, no meningeal sign - Cardiac Cardiac: RRR, Strong equal pulses - Respiratory Respiratory: No respiratory distress, Clear bilaterally - Abdomen Abdomen: Soft, Non tender, Non distended, Other (Urostomy on the left flank without signs of infection, colostomy in the left lower quadrant without signs of infection) - Back Back: No CVA TTP, No spinal TTP - Derm Derm: Warm and dry, No rash - Extremities Extremities: No edema, No calf tenderness / cord - Neuro Neuro: Alert and oriented X 3 - Psych Psych: Normal mood, Normal affect PD MEDICAL DECISION MAKING - ED course Complexity details: reviewed results, re-evaluated patient, considered differential, d/w patient, d/w family ED course: Patient feels much better after IV fluids. White blood cell count is normal. 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 Creatinine is at her normal baseline. Sodium is mildly low but should improve after the IV fluids. Patient states that she feels "100%" better and we will have her follow-up with her doctor for further care. No evidence of sepsis. Patient counseled regarding signs and symptoms for which I believe and urgent re-evaluation would be necessary. Patient with good understanding of and agreement to plan and is comfortable going home at this time This document was made in part using voice recognition software. While efforts a re made to proofread this document, sound alike and grammatical errors may occur. Departure - Departure Disposition: 01 Home, Self Care Clinical Impression: Dehydration UTI (urinary tract infection) Qualifiers: Urinary tract infection type: acute cystitis Hematuria presence: without hematuria Qualified Code(s): N30.00 - Acute cystitis without hematuria Condition: Good Instructions: ED Dehydration, ED UTI Cystitis Female Follow-Up: Melony Cain PA-C [Primary Care Provider] - Within 1 week Prescriptions: Cefdinir 300 mg PO BID #20 cap Comments: Take all antibiotics until gone. Please follow-up with your doctor for further care. Please return if you worsen. Your prescriptions were sent to [facility] in [place]. Please make sure you are drinking plenty of fluids at home. Forms: PCP List Discharge Date/Time: 12/11/22 16:22
== END 2022-12-11 16:22 | disposition home or self-care (01) ==
LOC: ED 13:02
DX: N30.00 Acute cystitis without hematuria (principal); E86.0 Dehydration; I10 Essential (primary) hypertension; E11.9 Type 2 diabetes mellitus without complications; Z79.4 Long term (current) use of insulin; Z79.899 Other long term (current) drug therapy
CPT/HCPCS: 36415; 80053; 81001; 81003; 83605; 83690; 85025; 87086; 96361; 96374; 99283

== ENCOUNTER 2022-12-13 17:18 | Outpatient (CLI) | payer MEDICARE ==
[2022-12-13 18:03] LABS: BASOPHILS # (AUTO) 0.1 10^3/uL (0.0-0.1); BASOPHILS % (AUTO) 1.1 %; EOSINOPHILS # (AUTO) 0.3 10^3/uL (0.0-0.7); EOSINOPHILS % (AUTO) 3.9 %; HCT - HEMATOCRIT 31.8 % (37.0-47.0); LYMPHOCYTES # (AUTO) 0.9 10^3/uL (1.5-3.5); LYMPHOCYTES % (AUTO) 14.6 %; MEAN CORPUSCULAR HGB CONC 31.4 g/dL (32.0-36.0); MEAN CORPUSCULAR VOLUME 98.5 fL (81.0-99.0); MEAN PLATELET VOLUME 9.4 fL (7.9-10.8); MONOCYTES # (AUTO) 0.2 10^3/uL (0.0-1.0); MONOCYTES % (AUTO) 3.6 %; NEUTROPHILS # (AUTO) 4.9 10^3/uL (1.5-6.6); NEUTROPHILS % (AUTO) 76.3 %; PLT - PLATELET COUNT 266 10^3/uL (130-450); RED BLOOD COUNT 3.23 10^6/uL (4.20-5.40); RED CELL DISTRIBUTION WIDTH 13.2 % (12.0-15.0); WHITE BLOOD COUNT 6.5 x10^3/uL (4.8-10.8)
[2022-12-13 18:28] LABS: ALBUMIN 2.9 g/dL (3.2-5.5); BILIRUBIN,TOTAL 0.2 mg/dL (0.2-1.0); CALCIUM 8.9 mg/dL (8.5-10.3); CREATININE 2.1 mg/dL (0.6-1.3); POTASSIUM 4.8 mmol/L (3.5-4.5); TOTAL PROTEIN 5.9 g/dL (6.4-8.9)
[2022-12-13 18:39] LABS: CA 125 56.6 U/mL (0.5-35.0)
== END 2022-12-13 17:19 | disposition home or self-care (01) ==
LOC: LAB 17:18
PROVIDERS: ATTEND Internal Medicine Hematology & Oncology
DX: R19.7 Diarrhea, unspecified (principal); C56.9 Malignant neoplasm of unspecified ovary
CPT/HCPCS: 36415; 80053; 81599; 82653; 85025; 86304

== ENCOUNTER 2022-12-16 08:53 | Outpatient (CLI) | payer MEDICARE ==
[2022-12-16 09:29] LABS: BILIRUBIN,URINE NEGATIVE (NEGATIVE); GLUCOSE, URINE (UA) NEGATIVE (NEGATIVE); KETONES,URINE (UA) NEGATIVE (NEGATIVE); LEUKOCYTE ESTERASE, URINE TRACE (NEGATIVE); NITRITE,URINE NEGATIVE (NEGATIVE); OCCULT BLOOD,URINE NEGATIVE (NEGATIVE); PROTEIN,URINE 30 mg/dL (NEGATIVE); UROBILINOGEN,URINE 0.2 (NORMAL) E.U./dL (NORMAL)
[2022-12-16 09:42] LABS: THYROID STIMULATING HORMONE 2.82 uIU/mL (0.34-5.60)
[2022-12-16 09:42] LABS: BACTERIA,URINE Few /HPF (None Seen); CASTS, URINE 0-2 Course Granular /LPF; CLARITY,URINE CLEAR (CLEAR); RBC,URINE 0-5 /HPF (0-5); SQUAMOUS EPITHELIAL CELL,UR FEW Squamous (<= Few)
[2022-12-16 09:43] LABS: YEAST,URINE PRESENT
[2022-12-16 09:48] LABS: FERRITIN 90.5 ng/mL (11.0-306.8)
== END 2022-12-16 08:54 | disposition home or self-care (01) ==
LOC: LAB 08:53
PROVIDERS: ATTEND Internal Medicine Hematology & Oncology
DX: N39.0 Urinary tract infection, site not specified (principal); R53.83 Other fatigue; D64.9 Anemia, unspecified
CPT/HCPCS: 36415; 81001; 81599; 82533; 82607; 82728; 83540; 83921; 84443; 84466; 87086

== ENCOUNTER 2023-02-27 14:27 | Outpatient (CLI) | payer MEDICARE ==
[2023-02-27 14:49] LABS: BASOPHILS # (AUTO) 0.1 10^3/uL (0.0-0.1); BASOPHILS % (AUTO) 0.7 %; EOSINOPHILS # (AUTO) 0.2 10^3/uL (0.0-0.7); EOSINOPHILS % (AUTO) 2.4 %; HCT - HEMATOCRIT 35.6 % (37.0-47.0); HGB - HEMOGLOBIN 11.2 g/dL (12.0-16.0); LYMPHOCYTES # (AUTO) 1.2 10^3/uL (1.5-3.5); LYMPHOCYTES % (AUTO) 11.7 %; MEAN CORPUSCULAR HEMOGLOBIN 29.4 pg (27.0-31.0); MEAN CORPUSCULAR HGB CONC 31.5 g/dL (32.0-36.0); MEAN CORPUSCULAR VOLUME 93.4 fL (81.0-99.0); MEAN PLATELET VOLUME 10.3 fL (7.9-10.8); MONOCYTES # (AUTO) 0.5 10^3/uL (0.0-1.0); MONOCYTES % (AUTO) 5.5 %; NEUTROPHILS # (AUTO) 7.8 10^3/uL (1.5-6.6); NEUTROPHILS % (AUTO) 79.3 %; PLT - PLATELET COUNT 257 10^3/uL (130-450); RED BLOOD COUNT 3.81 10^6/uL (4.20-5.40); RED CELL DISTRIBUTION WIDTH 13.5 % (12.0-15.0); WHITE BLOOD COUNT 9.9 x10^3/uL (4.8-10.8)
[2023-02-27 15:06] LABS: ALBUMIN 2.8 g/dL (3.2-5.5); BILIRUBIN,TOTAL 0.2 mg/dL (0.2-1.0); CALCIUM 8.3 mg/dL (8.5-10.3); CREATININE 1.8 mg/dL (0.6-1.3); POTASSIUM 2.6 mmol/L (3.5-4.5); TOTAL PROTEIN 5.5 g/dL (6.4-8.9)
[2023-02-27 15:15] LABS: CA 125 68.2 U/mL (0.5-35.0)
== END 2023-02-27 14:28 | disposition home or self-care (01) ==
LOC: LAB 14:27
PROVIDERS: ATTEND Internal Medicine Hematology & Oncology
DX: C56.9 Malignant neoplasm of unspecified ovary (principal)
CPT/HCPCS: 36415; 80053; 85025; 86304

== ENCOUNTER 2023-03-09 12:18 | Emergency (ER) | payer MEDICARE ==
[2023-03-09 13:04] LABS: BILIRUBIN,URINE NEGATIVE (NEGATIVE); GLUCOSE, URINE (UA) NEGATIVE (NEGATIVE); KETONES,URINE (UA) NEGATIVE (NEGATIVE); LEUKOCYTE ESTERASE, URINE MODERATE (NEGATIVE); NITRITE,URINE POSITIVE (NEGATIVE); OCCULT BLOOD,URINE SMALL (NEGATIVE); PROTEIN,URINE 100 mg/dL (NEGATIVE); UROBILINOGEN,URINE 0.2 (NORMAL) E.U./dL (NORMAL)
[2023-03-09 13:09] LABS: BACTERIA,URINE Many /HPF (None Seen); CLARITY,URINE CLEAR (CLEAR); RBC,URINE 0-5 /HPF (0-5); SQUAMOUS EPITHELIAL CELL,UR MOD Squamous (<= Few); WBC CLUMPS,URINE PRESENT
--- NOTE | 2023-03-09 13:09 | ED Physician Documentation ---
History of Present Illness - Stated complaint Stated Complaint: CRAMPING,BURNING - Chief complaint Chief Complaint: Back Pain - Additonal information Additional information: 82-year-old female here for dysuria and cramping in her lower abdomen. Patient has a left-sided nephrostomy tube and has had 1 now for about 18 months as a complication of ovarian cancer. She also has a left-sided colostomy. She is followed by [facility] for nephrology and oncology. Currently undergoing oral chemotherapy. She states that she has been in her usual health until this morning when she noted the dysuria. Denies fevers flank pain or vomiting. Review of Systems Constitutional: denies: Fever Throat: reports: Reviewed and negative Cardiac: reports: Reviewed and negative Respiratory: reports: Reviewed and negative GI: reports: Abdominal Pain, Other (left colostomy). denies: Nausea, Vomiting : reports: Dysuria, Other (left nephrostomy tube) PD PAST MEDICAL HISTORY - Past Medical History Past Medical History: Yes Cardiovascular: Hypertension Respiratory: Sleep apnea Neuro: None Endocrine/Autoimmune: Type 2 diabetes GI: Other MANAGEMENT LIAISON: None : Incontinence, Renal insuffiency HEENT: Chronic vision loss, Other Psych: Depression Musculoskeletal: Osteoarthritis Derm: None Other Past Medical History: stage 4 KIDNEY DISEASE...NEPHROSTOMY... 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: Hysterectomy HEENT: Cataracts, Tonsil/Adenoidectomy - Present Medications Home Medications: Ambulatory Orders Medication Instructions Recorded Confirmed Insulin Glargine [Lantus Solostar] 20 unit SUBQ DAILY 08/30/12 11/27/22 Metoprolol Tartrate [Lopressor] 12.5 mg PO BID 08/30/12 11/27/22 Multivitamin [Multivitamins] 1 each PO DAILY 02/12/16 11/27/22 Acetaminophen [Tylenol Extra 1 each PO Q6HR PRN 11/27/19 11/27/22 Strength] Cefpodoxime Proxetil [Vantin] 100 mg PO Q12H #20 tablet 11/23/22 11/27/22 Citalopram [CeleXA] 40 mg PO DAILY 11/23/22 11/27/22 HYDROcod/ACETAM 5/325 [[place] 5/325] 1 tab PO DAILY PRN 11/23/22 11/27/22 Insulin Glargine [Lantus Solostar] 15 unit SUBQ HS 11/23/22 11/27/22 Letrozole 2.5 mg PO DAILY 11/23/22 11/27/22 Loperamide [Imodium] 2 mg PO BID 11/23/22 11/27/22 Loratadine [Claritin] 10 mg PO DAILY PRN 11/23/22 11/27/22 Omeprazole Magnesium 20 mg PO DAILY 11/23/22 11/27/22 Tamoxifen Citrate 20 mg PO BID 11/23/22 11/27/22 Cholecalciferol (Vitamin D3) 125 mcg PO OAW 11/27/22 11/27/22 [Vitamin D3] Psyllium Husk [Fiber] See Rx Instructions .ROUTE .COMPLEX 11/27/22 11/27/22 Cefdinir 300 mg PO BID #20 cap 12/11/22 Cefpodoxime Proxetil [Vantin] 100 mg PO Q12H #14 tablet 03/09/23 - Allergies Allergies/Adverse Reactions: Allergies Allergy/AdvReac Type Severity Reaction Status Date / Time No Known Drug Allergies Allergy Verified 03/09/23 12:46 - Social History Does the pt smoke?: No Smoking Status: Never smoker Does the pt drink ETOH?: No Does the pt have substance abuse?: No - Immunizations Immunizations are current?: Yes Immunizations: TDAP current <10years - POLST Patient has POLST: No POLST Status: Full Code PD ED PE NORMAL - General General: Alert and oriented X 3, No acute distress, Well developed/nourished - Cardiac Cardiac: RRR, No murmur - Respiratory Respiratory: No respiratory distress, Clear bilaterally - Abdomen Abdomen: Normal bowel sounds, Soft. No: Non tender (mild generalized tenderness; non focal; non peritoneal. LLQ colostomy. Yellow soft stool. Stoma pink.) - Back Back: Other (Nephrostomy tube seen exiting the left lower posterior back. Draining yellow hazy/sediment urine.) - Derm Derm: Normal color - Extremities Extremities: No deformity - Neuro Neuro: Alert and oriented X 3 Eye Opening: Spontaneous Motor: Obeys Commands Verbal: Oriented GCS Score: 15 Results - Vitals Vitals: Vital Signs - 24 hr 03/09/23 12:39 Temperature 36.3 C L Heart Rate 70 Respiratory 17 Rate Blood Pressure 96/47 L O2 Saturation 99 Oxygen O2 Source Room air - Labs Labs: Laboratory Tests 03/09/23 03/09/23 03/09/23 12:50 13:10 13:10 WBC 9.3 RBC 3.90 L Hgb 11.3 L Hct 37.0 MCV 94.9 MCH 29.0 MCHC 30.5 L RDW 13.2 Plt Count 318 MPV 9.6 Neut # (Auto) 7.2 H Lymph # (Auto) 1.5 [place] # (Auto) 0.3 Eos # (Auto) 0.2 Baso # (Auto) 0.1 Absolute Nucleated RBC 0.00 Nucleated RBC % 0.0 Sodium 139 Potassium 3.1 L Chloride 106 Carbon Dioxide 28 Anion Gap 5.0 L BUN 20 Creatinine 1.9 H Estimated GFR (MDRD) 25 L Glucose 140 H Calcium 9.1 Total Bilirubin 0.3 AST 10 ALT 5 L Alkaline Phosphatase 106 Total Protein 6.0 L Albumin 2.9 L Globulin 3.1 Albumin/Globulin Ratio 0.9 L Lipase 38 Urine Color YELLOW Urine Clarity CLEAR Urine pH 6.0 Ur Specific [place] 1.025 Urine Protein 100 H Urine Glucose (UA) NEGATIVE Urine Ketones NEGATIVE Urine Occult Blood SMALL H Urine Nitrite POSITIVE H Urine Bilirubin NEGATIVE Urine Urobilinogen 0.2 (NORMAL) Ur Leukocyte Esterase MODERATE H Urine RBC 0-5 Urine WBC >25 H Urine WBC Clumps PRESENT Ur Squamous Epith Cells MOD Squamous H Urine Bacteria Many H Ur Microscopic Review INDICATED Urine Culture Comments NOT INDICATED 03/09/23 14:00 WBC RBC Hgb Hct MCV MCH MCHC RDW Plt Count MPV Neut # (Auto) Lymph # (Auto) [place] # (Auto) Eos # (Auto) Baso # (Auto) Absolute Nucleated RBC Nucleated RBC % Sodium Potassium Chloride Carbon Dioxide Anion Gap BUN Creatinine Estimated GFR (MDRD) Glucose Calcium Total Bilirubin AST ALT Alkaline Phosphatase Total Protein Albumin Globulin Albumin/Globulin Ratio Lipase Urine Color YELLOW Urine Clarity TURBID Urine pH 6.0 Ur Specific [place] 1.025 Urine Protein >=300 H Urine Glucose (UA) NEGATIVE Urine Ketones NEGATIVE Urine Occult Blood LARGE H Urine Nitrite POSITIVE H Urine Bilirubin NEGATIVE Urine Urobilinogen 0.2 (NORMAL) Ur Leukocyte Esterase MODERATE H Urine RBC 6-10 H Urine WBC >25 H Urine WBC Clumps PRESENT Ur Squamous Epith Cells NONE SEEN Urine Bacteria Many H Ur Microscopic Review INDICATED Urine Culture Comments INDICATED - Rads (name of study) CT abd/pelvis wo Relevant Findings:: Final report received (Unchanged coarse appearance of the left nephrostomy with no left hydronephrosis. Unchanged mild right hydronephrosis. Remote colostomy. Significant interval improvement in distal colitis. Numerous calcified peritoneal nodules are stable, present in the abdomen and pelvis.) PD Medical Decision Making - ED course Complexity details: reviewed results, re-evaluated patient, d/w patient ED course: 82-year-old female presents emergency department for evaluation of acute dysuria. She has a longstanding history of a nephrostomy tube on the left side as well as a colostomy. These are complications of renal disease and ovarian cancer. 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 Smalls. Currently also taking oral chemotherapy. On presentation she is alert and well-appearing. Her vital signs were without fever tachycardia or hypotension. I did obtain CBC and electrolytes per my int erpretation no leukocytosis. Hemoglobin is 11 improved from most recent labs. She does have stable chronic kidney disease with a BUN of 20 creatinine of 1.9 essentially unchanged. Potassium was 3.1 and I repleted her with 50 of oral potassium. we did obtain 2 urine samples, 1 which was from a spontaneous void and the other from the nephrostomy tube. Both are consistent with acute infection. A CT of her abdomen showed no significant changes from previous. Based on her last microbiology the patient was administered ceftriaxone here in the ER and will be started on Vantin twice daily for the next week. I did briefly discuss this case with Dr. Smalls her ornamental iron worker helper who feels that she is quite stable for outpatient treatment. Findings and plan were discussed with the patient and her [id number] at the bedside and both are comfortable with the plan and discharge home with usual emergent return precautions discussed for worsening symptoms. Departure - Departure Disposition: Home, Self Care Clinical Impression: Nephrostomy status, Hypokalemia UTI (urinary tract infection) Qualifiers: Urinary tract infection type: acute cystitis Hematuria presence: without hematuria Qualified Code(s): N30.00 - Acute cystitis without hematuria Record reviewed to determine appropriate education?: Yes Follow-Up: ANA SMALLS MD [Physician No Access] - Prescriptions: Cefpodoxime Proxetil [Vantin] 100 mg PO Q12H #14 tablet Comments: You do have evidence of infection in both the urine that you gave spontaneously and through the nephrostomy tube. I did discuss this case with Dr. Smalls and he recommends outpatient antibiotics. I have sent a prescription for Vantin to the [address] Otherwise today your labs did not show any acutely worrisome findings. The CT scan also did not show any new changes from recent. To support you continue to follow-up with Dr. Smalls. Return to the ER for any new or worsening symptoms including fevers severe abdominal pain and vomiting.
[2023-03-09 13:10] LABS: WBC,URINE >25 /HPF (0-5)
[2023-03-09] MEDS ORDERED: SODIUM CHLORIDE 0.9% 1,000 ML IV STA (13:10)
[2023-03-09 13:21] LABS: BASOPHILS # (AUTO) 0.1 10^3/uL (0.0-0.1); BASOPHILS % (AUTO) 0.9 %; EOSINOPHILS # (AUTO) 0.2 10^3/uL (0.0-0.7); EOSINOPHILS % (AUTO) 2.3 %; HGB - HEMOGLOBIN 11.3 g/dL (12.0-16.0); LYMPHOCYTES # (AUTO) 1.5 10^3/uL (1.5-3.5); LYMPHOCYTES % (AUTO) 15.7 %; MEAN CORPUSCULAR HGB CONC 30.5 g/dL (32.0-36.0); MEAN CORPUSCULAR VOLUME 94.9 fL (81.0-99.0); MEAN PLATELET VOLUME 9.6 fL (7.9-10.8); MONOCYTES # (AUTO) 0.3 10^3/uL (0.0-1.0); MONOCYTES % (AUTO) 3.4 %; NEUTROPHILS # (AUTO) 7.2 10^3/uL (1.5-6.6); NEUTROPHILS % (AUTO) 77.5 %; PLT - PLATELET COUNT 318 10^3/uL (130-450); RED CELL DISTRIBUTION WIDTH 13.2 % (12.0-15.0); WHITE BLOOD COUNT 9.3 x10^3/uL (4.8-10.8)
[2023-03-09 13:31] LABS: ALBUMIN 2.9 g/dL (3.2-5.5); ALBUMIN/GLOBULIN RATIO 0.9 (1.0-2.2); BILIRUBIN,TOTAL 0.3 mg/dL (0.2-1.0); CALCIUM 9.1 mg/dL (8.5-10.3); CREATININE 1.9 mg/dL (0.6-1.3); POTASSIUM 3.1 mmol/L (3.5-4.5)
[2023-03-09] MEDS ORDERED: cefTRIAXone 1 GM VIAL IVP STA (13:57)
[2023-03-09] MEDS ORDERED: POTASSIUM BICARB 25 MEQ TABLET PO STA (13:57)
[2023-03-09 14:12] LABS: BILIRUBIN,URINE NEGATIVE (NEGATIVE); GLUCOSE, URINE (UA) NEGATIVE (NEGATIVE); KETONES,URINE (UA) NEGATIVE (NEGATIVE); LEUKOCYTE ESTERASE, URINE MODERATE (NEGATIVE); NITRITE,URINE POSITIVE (NEGATIVE); OCCULT BLOOD,URINE LARGE (NEGATIVE); PROTEIN,URINE >=300 mg/dL (NEGATIVE); UROBILINOGEN,URINE 0.2 (NORMAL) E.U./dL (NORMAL)
[2023-03-09 14:17] LABS: BACTERIA,URINE Many /HPF (None Seen); CLARITY,URINE TURBID (CLEAR); SQUAMOUS EPITHELIAL CELL,UR NONE SEEN (<= Few); WBC CLUMPS,URINE PRESENT
[2023-03-09 14:18] LABS: WBC,URINE >25 /HPF (0-5)
--- NOTE | 2023-03-09 15:03 | CT Report ---
PROCEDURE: ABDOMEN/PELVIS WO INDICATIONS: dysuria, nephrostomy tube, colostomy TECHNIQUE: A CT scan of the abdomen and pelvis was performed without the use of intravenous contrast. Images we re recorded and evaluated at appropriate window settings. Reformats: coronal and sagittal. For radiat ion dose reduction, the following was used: automated exposure control, adjustment of mA and/or kV ac cording to patient size. COMPARISON: 11/27/2022. FINDINGS: Image quality: Excellent. Lung bases and heart: No significant change, mild to moderate right pleural effusion with right basil ar atelectasis. Interval increase in left pleural fluid, minimal, with associated left basilar atelec tasis. Unchanged 6 mm right middle lobe pulmonary nodule. Liver: No solid mass. Gallbladder and biliary tree: Surgically absent. No biliary dilation, accounting for post-cholecystec dang state. Spleen: No splenomegaly. Pancreas: No pancreatic ductal dilation. Adrenals: No adrenal nodule. Kidneys and ureters: Unchanged appearance and course of left nephrostomy. No hydronephrosis. Mild rig ht-sided hydronephrosis is unchanged. The distal right ureter is obscured by calcified masses and bod y and tail artifact. Bowel and peritoneum: Numerous densely calcified peritoneal masses are again noted, not significantly changed size or number. Remote colostomy. Partial colectomy. Significant interval improvement in dis harleen colitis. Lymph nodes: No central or retroperitoneal adenopathy. Vessels: No infrarenal aortic aneurysm. PELVIS Reproductive organs: Uterus is surgically absent. Bladder: Bladder is decompressed and is obscured by extensive metal artifact from bilateral total hip arthroplasties. Pelvic lymph nodes: No pelvic adenopathy by size criteria. Bones: Extensive metal artifact from bilateral total hip arthroplasties. Lumbar degenerative change. No lytic or blastic bony lesions. Severe canal stenosis at L4-L5. No compression fractures. Other: No significant ventral or inguinal hernia. IMPRESSION: 1. Unchanged coarsened appearance of left nephrostomy with no left hydronephrosis. 2. Unchanged mild right hydronephrosis. 3. Remote colostomy. 4. Significant interval improvement in distal colitis. 5. Numerous calcified peritoneal nodules are stable, present in the abdomen and pelvis. Reviewed by: Ross David MD on 03/09/2023 3:01 PM PST Approved by: Ross David MD on 03/09/2023 3:01 PM PST Station ID: [id number]
[2023-03-09] MEDS ORDERED: LIDOCAINE 1% 2 ML VIAL MC ONE (15:09)
[2023-03-09] MEDS ORDERED: cefTRIAXone 1 GM VIAL IM STA (15:09)
[2023-03-09 16:04] VITALS: BP 129/57; O2SAT 98
== END 2023-03-09 16:03 | disposition home or self-care (01) ==
LOC: ED 12:18
DX: T83.9XXA Unspecified complication of genitourinary prosthetic device, implant and graft, initial encounter (principal); N30.00 Acute cystitis without hematuria; E87.6 Hypokalemia; I10 Essential (primary) hypertension; E11.9 Type 2 diabetes mellitus without complications; Z79.4 Long term (current) use of insulin
CPT/HCPCS: 36415; 74176; 80053; 81001; 83690; 85025; 87040; 87077; 87086; 87181; 96360; 96372; 99284; A9270; 81003

== ENCOUNTER 2023-03-24 12:25 | Outpatient (CLI) | payer MEDICARE ==
[2023-03-24 12:58] LABS: HGB - HEMOGLOBIN 12.8 g/dL (12.0-16.0)
[2023-03-24 13:04] LABS: CREATININE,URINE 71.9 mg/dL; MICROALBUM/CREATININE RATIO,UR 204.5 ug/mg (<30.0); MICROALBUMIN,URINE 14.7 mg/dL; PROTEIN/CREATININE RATIO,URINE 0.9 (<=0.2)
[2023-03-24 13:06] LABS: ALBUMIN 3.1 g/dL (3.2-5.5); CALCIUM 9.3 mg/dL (8.5-10.3); CREATININE 1.1 mg/dL (0.6-1.3); PHOSPHORUS 3.5 mg/dL (2.5-5.0); POTASSIUM 3.9 mmol/L (3.5-4.5)
== END 2023-03-24 12:26 | disposition home or self-care (01) ==
LOC: LAB 12:25
PROVIDERS: ATTEND Internal Medicine Nephrology
DX: E11.22 Type 2 diabetes mellitus with diabetic chronic kidney disease (principal); N18.4 Chronic kidney disease, stage 4 (severe); D63.1 Anemia in chronic kidney disease
CPT/HCPCS: 36415; 80048; 80069; 82043; 82306; 82570; 83970; 84156; 85014; 85018

== ENCOUNTER 2023-05-02 12:15 | Outpatient (CLI) | payer MEDICARE ==
[2023-05-02 12:54] LABS: BASOPHILS # (AUTO) 0.1 10^3/uL (0.0-0.1); BASOPHILS % (AUTO) 1.4 %; EOSINOPHILS # (AUTO) 0.1 10^3/uL (0.0-0.7); EOSINOPHILS % (AUTO) 2.6 %; HCT - HEMATOCRIT 35.9 % (37.0-47.0); HGB - HEMOGLOBIN 11.2 g/dL (12.0-16.0); LYMPHOCYTES # (AUTO) 1.2 10^3/uL (1.5-3.5); LYMPHOCYTES % (AUTO) 28.2 %; MEAN CORPUSCULAR HEMOGLOBIN 29.7 pg (27.0-31.0); MEAN CORPUSCULAR HGB CONC 31.2 g/dL (32.0-36.0); MEAN CORPUSCULAR VOLUME 95.2 fL (81.0-99.0); MEAN PLATELET VOLUME 10.1 fL (7.9-10.8); MONOCYTES # (AUTO) 0.5 10^3/uL (0.0-1.0); MONOCYTES % (AUTO) 10.7 %; NEUTROPHILS # (AUTO) 2.4 10^3/uL (1.5-6.6); NEUTROPHILS % (AUTO) 56.9 %; PLT - PLATELET COUNT 265 10^3/uL (130-450); RED BLOOD COUNT 3.77 10^6/uL (4.20-5.40); WHITE BLOOD COUNT 4.2 x10^3/uL (4.8-10.8)
[2023-05-02 13:13] LABS: ALBUMIN 3.2 g/dL (3.2-5.5); ALBUMIN/GLOBULIN RATIO 0.9 (1.0-2.2); BILIRUBIN,TOTAL 0.3 mg/dL (0.2-1.0); CALCIUM 9.5 mg/dL (8.5-10.3); CREATININE 1.9 mg/dL (0.6-1.3); TOTAL PROTEIN 6.8 g/dL (6.4-8.9)
[2023-05-02 13:46] LABS: CA 125 51.9 U/mL (0.5-35.0)
== END 2023-05-02 12:16 | disposition home or self-care (01) ==
LOC: LAB 12:15
PROVIDERS: ATTEND Internal Medicine Hematology & Oncology
DX: C56.9 Malignant neoplasm of unspecified ovary (principal)
CPT/HCPCS: 36415; 80053; 85025; 86304

== ENCOUNTER 2023-06-20 11:14 | Outpatient (CLI) | payer MEDICARE ==
[2023-06-20 11:31] LABS: HCT - HEMATOCRIT 37.2 % (37.0-47.0); HGB - HEMOGLOBIN 11.8 g/dL (12.0-16.0)
[2023-06-20 11:46] LABS: CALCIUM 9.5 mg/dL (8.5-10.3); CREATININE 1.6 mg/dL (0.6-1.3); POTASSIUM 3.6 mmol/L (3.5-4.5)
[2023-06-20 11:51] LABS: CREATININE,URINE 53.4 mg/dL
== END 2023-06-20 11:15 | disposition home or self-care (01) ==
LOC: LAB 11:14
PROVIDERS: ATTEND Internal Medicine Nephrology
DX: N18.4 Chronic kidney disease, stage 4 (severe) (principal)
CPT/HCPCS: 36415; 80048; 82570; 84156; 85014; 85018

== ENCOUNTER 2023-08-15 12:23 | Outpatient (CLI) | payer MEDICARE ==
[2023-08-15 12:41] LABS: BILIRUBIN,URINE NEGATIVE (NEGATIVE); GLUCOSE, URINE (UA) NEGATIVE (NEGATIVE); KETONES,URINE (UA) NEGATIVE (NEGATIVE); LEUKOCYTE ESTERASE, URINE LARGE (NEGATIVE); NITRITE,URINE NEGATIVE (NEGATIVE); OCCULT BLOOD,URINE MODERATE (NEGATIVE); PROTEIN,URINE 100 mg/dL (NEGATIVE); UROBILINOGEN,URINE 0.2 (NORMAL) E.U./dL (NORMAL)
[2023-08-15 12:49] LABS: CLARITY,URINE CLOUDY (CLEAR)
[2023-08-15 12:57] LABS: RBC,URINE 0-5 /HPF (0-5); SQUAMOUS EPITHELIAL CELL,UR FEW Squamous (<= Few); WBC,URINE >25 /HPF (0-5)
[2023-08-15 12:58] LABS: BACTERIA,URINE Moderate /HPF (None Seen)
== END 2023-08-15 12:24 | disposition home or self-care (01) ==
LOC: LAB.R 12:23
DX: N13.5 Crossing vessel and stricture of ureter without hydronephrosis (principal); R30.0 Dysuria
CPT/HCPCS: 81001; 87086

== ENCOUNTER 2023-08-18 16:35 | Outpatient (CLI) | payer MEDICARE | END 2023-08-18 16:36 | disposition home or self-care (01) | LOC: RT 16:35 | PROVIDERS: ATTEND Student in an Organized Health Care Education/Training Program | DX: I49.9 Cardiac arrhythmia, unspecified (principal) | CPT/HCPCS: 93005 ==

== ENCOUNTER 2023-09-23 18:11 | Outpatient (CLI) | payer MEDICARE | END 2023-09-23 23:59 | disposition critical access hospital (66) | LOC: EMS 18:11 | DX: R50.9 Fever, unspecified (principal); R11.2 Nausea with vomiting, unspecified; R10.9 Unspecified abdominal pain; Z93.3 Colostomy status; Z96.0 Presence of urogenital implants | CPT/HCPCS: A0425; A0429 ==

== ENCOUNTER 2023-09-23 18:15 | Emergency (ER) | payer MEDICARE ==
[2023-09-23 18:53] LABS: BASOPHILS # (AUTO) 0.1 10^3/uL (0.0-0.1); BASOPHILS % (AUTO) 0.4 %; EOSINOPHILS # (AUTO) 0.2 10^3/uL (0.0-0.7); EOSINOPHILS % (AUTO) 1.5 %; HCT - HEMATOCRIT 36.5 % (37.0-47.0); HGB - HEMOGLOBIN 11.7 g/dL (12.0-16.0); LYMPHOCYTES # (AUTO) 0.8 10^3/uL (1.5-3.5); MEAN CORPUSCULAR HEMOGLOBIN 31.4 pg (27.0-31.0); MEAN CORPUSCULAR HGB CONC 32.1 g/dL (32.0-36.0); MEAN CORPUSCULAR VOLUME 97.9 fL (81.0-99.0); MEAN PLATELET VOLUME 9.7 fL (7.9-10.8); MONOCYTES # (AUTO) 0.7 10^3/uL (0.0-1.0); MONOCYTES % (AUTO) 4.1 %; NEUTROPHILS # (AUTO) 14.2 10^3/uL (1.5-6.6); NEUTROPHILS % (AUTO) 88.7 %; PLT - PLATELET COUNT 294 10^3/uL (130-450); RED BLOOD COUNT 3.73 10^6/uL (4.20-5.40); RED CELL DISTRIBUTION WIDTH 12.8 % (12.0-15.0)
[2023-09-23] MEDS: ACETAMINOPHEN 500 MG TABLET PO STA (18:56)
[2023-09-23 18:58] LABS: BILIRUBIN,URINE NEGATIVE (NEGATIVE); GLUCOSE, URINE (UA) NEGATIVE (NEGATIVE); KETONES,URINE (UA) NEGATIVE (NEGATIVE); LEUKOCYTE ESTERASE, URINE MODERATE (NEGATIVE); NITRITE,URINE NEGATIVE (NEGATIVE); OCCULT BLOOD,URINE LARGE (NEGATIVE); PH,URINE 6.5 PH (5.0-7.5); PROTEIN,URINE 100 mg/dL (NEGATIVE); UROBILINOGEN,URINE 0.2 (NORMAL) E.U./dL (NORMAL)
[2023-09-23 19:00] LABS: CLARITY,URINE HAZY (CLEAR)
[2023-09-23 19:05] LABS: ALBUMIN 3.2 g/dL (3.2-5.5); ALBUMIN/GLOBULIN RATIO 0.9 (1.0-2.2); BILIRUBIN,TOTAL 0.5 mg/dL (0.2-1.0); CREATININE 1.3 mg/dL (0.6-1.3); MAGNESIUM 1.4 mg/dL (1.7-2.3); POTASSIUM 4.5 mmol/L (3.5-4.5); TOTAL PROTEIN 6.7 g/dL (6.4-8.9)
[2023-09-23] MEDS: PIPERACILLIN/TAZOBACTAM 3.375 GM in SODIUM CHLORIDE 0.9% MINIBAG 100 ML IV STA (19:05)
[2023-09-23 19:06] LABS: BACTERIA,URINE Many /HPF (None Seen); SQUAMOUS EPITHELIAL CELL,UR RARE Squamous (<= Few); WBC,URINE >25 /HPF (0-5)
[2023-09-23] MEDS ORDERED: VANCOMYCIN 1 GM VIAL ONE ×2 (19:10→19:23)
[2023-09-23] MEDS ORDERED: iohexoL-300 100 ML VIAL ONE (19:12)
[2023-09-23] MEDS: VANCOMYCIN INJ 1.5 GM in SODIUM CHLORIDE 0.9% 500 ML IV STA (19:19)
[2023-09-23] MEDS: IBUPROFEN 800 MG TABLET PO STA (20:07)
--- NOTE | 2023-09-23 20:23 | CT Report ---
PROCEDURE: Abdomen/Pelvis WO INDICATIONS: RUQ pain TECHNIQUE: A CT scan of the abdomen and pelvis was performed without the use of intravenous contrast. Images we re recorded and evaluated at appropriate window settings. Reformats: coronal and sagittal. For radiat ion dose reduction, the following was used: automated exposure control, adjustment of mA and/or kV ac cording to patient size. COMPARISON: Prior CT abdomen/pelvis 03/09/2023. FINDINGS: Image quality: Diagnostic. Quality of visualization is somewhat limited by the absence of both oral a nd intravenous contrast. Lower chest: Liver: No contour-deforming mass. There is a moderate right pleural effusion with lung b ase atelectasis bilaterally and a slight left pleural effusion. Gallbladder: Prior cholecystectomy. Biliary tree: No intrahepatic or extrahepatic dilation, accounting for age. Spleen: No splenomegaly. Pancreas: No pancreatic ductal dilation. Adrenals: No adrenal nodule. Kidneys and ureters: No hydronephrosis. No contour-deforming mass. A double pigtail ureteral catheter extends from the pelvis into the right renal pelvis, and on the left to a previously present percuta neous nephrostomy tube remains within the renal pelvis also. Note is made of mild right urothelial th ickening and this extends into the right ureter, tracking into the pelvis to a mild degree. This was not previously present in March 09, 2023 CT scanning. Stomach, bowel and peritoneum: No gastric or small bowel dilation. No abnormal wall thickening. No pa thologic free fluid. Lymph nodes: No central or retroperitoneal adenopathy. Again noted are structures within the abdomen/ pelvis retroperitoneum and contiguously within the upper pelvis retroperitoneum and within the anteri or right paramedian peritoneal space that are calcified densely, perhaps reflecting prior granulomato us disease. These appear mildly more prominent in size than on the comparison CT scan. Vessels: No infrarenal aortic aneurysm. Reproductive organs: Unremarkable. Bladder: Bladder wall thickness is normal, accounting for underdistention. No calcified bladder stone s. Pelvic lymph nodes: No adenopathy by size criteria. Bones: No aggressive osseous abnormality. Other: No significant ventral or inguinal hernia. A left lower quadrant previously present colostomy site shows no operative complication. IMPRESSION: Bilateral urinary tract decompression by double pigtail ureteral stent on the right and chronic percu taneous nephrostomy on the left. No current urinary tract obstruction is suspected. There is a pattern of mild concentric urothelial thickening within the right renal collecting system and ureter, not seen on the prior CT scanning from late 2022. This can be seen in the setting of urin parris tract infection and please correlate for presence or absence of UTI. No alternative source of rig ht upper quadrant pain is found. Mildly enlarged retroperitoneal and several peritoneal calcified structures within the abdomen/pelvis junction and pelvis slightly more inferiorly. Old granulomatous disease is a potential cause. Reviewed by: Jonah Cedeno MD on 09/23/2023 8:22 PM PDT Approved by: Jonah Cedeno MD on 09/23/2023 8:22 PM PDT Station ID: [id number]
--- NOTE | 2023-09-23 21:50 | ED Physician Documentation ---
History of Present Illness - Stated complaint Stated Complaint: FEVER/CHILLS - Chief complaint Chief Complaint: Fever - Additonal information Additional information: 83 yo female with hx of ovarian cancer diagnosed about 4-5 years ago a patient of [facility] present to the ER for fevers, chills, rigors, and malaise. Patient was recently admitted at [facility] for small bowel obstruction about 5 days ago she has a known colostomy that has been in for about the last 4 to 5 years. Patient does endorse some mild abdominal pain and tenderness no laceration or wounds no recent falls or trauma she is unsure what has brought on these fever chills and rigors. She says overall she was feeling well yesterday she started to feel generalized malaise and then today sudden onset fevers and chills that have been going on since this afternoon. 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: Ovarian cancer : Incontinence, Renal insuffiency HEENT: Chronic vision loss, Other Psych: Depression Musculoskeletal: Osteoarthritis Derm: None - Past Surgical History Past Surgical History: Yes General: Cholecystectomy, Appendectomy, Bowel surgery Ortho: Hip replacement, Other /ENLISTED AIRCREW/AERIAL OBSERVER/GUNNER: Hysterectomy HEENT: Cataracts, Tonsil/Adenoidectomy - Present Medications Home Medications: Ambulatory Orders Medication Instructions Recorded Confirmed Insulin Glargine [Lantus Solostar] 20 unit SUBQ DAILY 08/30/12 11/27/22 Metoprolol Tartrate [Lopressor] 12.5 mg PO BID 08/30/12 11/27/22 Multivitamin [Multivitamins] 1 each PO DAILY 02/12/16 11/27/22 Acetaminophen [Tylenol Extra 1 each PO Q6HR PRN 11/27/19 11/27/22 Strength] Cefpodoxime Proxetil [Vantin] 100 mg PO Q12H #20 tablet 11/23/22 11/27/22 Citalopram [CeleXA] 40 mg PO DAILY 11/23/22 11/27/22 HYDROcod/ACETAM 5/325 [Upham 5/325] 1 tab PO DAILY PRN 11/23/22 11/27/22 Insulin Glargine [Lantus Solostar] 15 unit SUBQ HS 11/23/22 11/27/22 Letrozole 2.5 mg PO DAILY 11/23/22 11/27/22 Loperamide [Imodium] 2 mg PO BID 11/23/22 11/27/22 Loratadine [Claritin] 10 mg PO DAILY PRN 11/23/22 11/27/22 Omeprazole Magnesium 20 mg PO DAILY 11/23/22 11/27/22 Tamoxifen Citrate 20 mg PO BID 11/23/22 11/27/22 Cholecalciferol (Vitamin D3) 125 mcg PO OAW 11/27/22 11/27/22 [Vitamin D3] Psyllium Husk [Fiber] See Rx Instructions .ROUTE .COMPLEX 11/27/22 11/27/22 Cefdinir 300 mg PO BID #20 cap 12/11/22 Cefpodoxime Proxetil [Vantin] 100 mg PO Q12H #14 tablet 03/09/23 - Allergies Allergies/Adverse Reactions: Allergies Allergy/AdvReac Type Severity Reaction Status Date / Time No Known Drug Allergies Allergy Verified 09/23/23 18:25 - Social History Does the pt smoke?: No Smoking Status: Never smoker Does the pt drink ETOH?: No Does the pt have substance abuse?: No - Immunizations Immunizations are current?: Yes Immunizations: TDAP current <10years - POLST Patient has POLST: No POLST Status: Full Code PD ED PE NORMAL - Vitals Vital signs reviewed: Yes - General General: Other (Ill-appearing with rigors) - HEENT HEENT: Atraumatic, PERRL - Cardiac Cardiac: RRR - Respiratory Respiratory: No respiratory distress, Clear bilaterally - Abdomen Abdomen: Normal bowel sounds, Soft, Other (Left colostomy bag with stool output, Generalized abdominal tenderness) - Female Female : Other (Left nephrostomy tube to left flank no erythema surrounding insertion site.) - Derm Derm: Normal color, Warm and dry, No rash Results - Vitals Vitals: Vital Signs - 24 hr 09/23/23 09/23/23 09/23/23 18:19 18:55 19:26 Temperature 38.5 C H 40.4 C H Heart Rate 101 H 95 Respiratory 20 18 Rate Blood Pressure 124/80 143/71 H O2 Saturation 98 98 09/23/23 09/23/23 09/23/23 19:35 20:03 20:07 Temperature 102.6 C H 39.2 C H Heart Rate 93 Respiratory 18 Rate Blood Pressure 100/58 L O2 Saturation 94 09/23/23 09/23/23 09/23/23 20:32 20:34 20:37 Temperature 38.7 C H 99.9 C H Heart Rate 90 69 Respiratory 18 16 Rate Blood Pressure 161/70 H 161/70 H O2 Saturation 95 95 09/23/23 09/23/23 21:38 22:15 Temperature Heart Rate 98 97 Respiratory 16 14 Rate Blood Pressure 121/58 L 121/54 L O2 Saturation 94 94 Oxygen O2 Source Room air - Labs Labs: Laboratory Tests 09/23/23 09/23/23 09/23/23 18:45 18:45 18:45 WBC 16.0 H RBC 3.73 L Hgb 11.7 L Hct 36.5 L MCV 97.9 MCH 31.4 H MCHC 32.1 RDW 12.8 Plt Count 294 MPV 9.7 Neut # (Auto) 14.2 H Lymph # (Auto) 0.8 L [place] # (Auto) 0.7 Eos # (Auto) 0.2 Baso # (Auto) 0.1 Absolute Nucleated RBC 0.00 Nucleated RBC % 0.0 Sodium 136 Potassium 4.5 Chloride 100 L Carbon Dioxide 29 Anion Gap 7.0 BUN 24 H Creatinine 1.3 Estimated GFR (MDRD) 39 L Glucose 192 H Lactic Acid 1.7 Calcium 9.0 Magnesium 1.4 L Total Bilirubin 0.5 AST 20 ALT 10 Alkaline Phosphatase 231 H Total Protein 6.7 Albumin 3.2 Globulin 3.5 Albumin/Globulin Ratio 0.9 L Lipase 20 Urine Color Urine Clarity Urine pH Ur Specific [place] Urine Protein Urine Glucose (UA) Urine Ketones Urine Occult Blood Urine Nitrite Urine Bilirubin Urine Urobilinogen Ur Leukocyte Esterase Urine RBC Urine WBC Ur Squamous Epith Cells Urine Bacteria Ur Microscopic Review Urine Culture Comments 09/23/23 18:45 WBC RBC Hgb Hct MCV MCH MCHC RDW Plt Count MPV Neut # (Auto) Lymph # (Auto) [place] # (Auto) Eos # (Auto) Baso # (Auto) Absolute Nucleated RBC Nucleated RBC % Sodium Potassium Chloride Carbon Dioxide Anion Gap BUN Creatinine Estimated GFR (MDRD) Glucose Lactic Acid Calcium Magnesium Total Bilirubin AST ALT Alkaline Phosphatase Total Protein Albumin Globulin Albumin/Globulin Ratio Lipase Urine Color YELLOW Urine Clarity HAZY Urine pH 6.5 Ur Specific [place] 1.015 Urine Protein 100 H Urine Glucose (UA) NEGATIVE Urine Ketones NEGATIVE Urine Occult Blood LARGE H Urine Nitrite NEGATIVE Urine Bilirubin NEGATIVE Urine Urobilinogen 0.2 (NORMAL) Ur Leukocyte Esterase MODERATE H Urine RBC 6-10 H Urine WBC >25 H Ur Squamous Epith Cells RARE Squamous Urine Bacteria Many H Ur Microscopic Review INDICATED Urine Culture Comments INDICATED - Rads (name of study) CT abdomen pelvis with contrast Relevant Findings:: Final report received, EMP independent interpretation of test, Other (Bilateral urinary tract decompression of double-pigtail ureteral stent on the right and chronic percutaneous nephrostomy on the left. Mild concentric urothelial thickening within the right renal collecting system and ureter) PD Medical Decision Making - ED course ED course: 83-year-old female presents emergency department for fevers chills and rigors. 2 sets of blood cultures were collected upon patient's initial arrival to the emergency department as well as labs. She has significant leukocytosis, 16.0, mild anemia hemoglobin 11.7. No electrolyte abnormalities, kidney function does appear to be impaired, BUN 24, GFR 39, creatinine 1.3. Alk phos is also elevated at 231. Urinalysis from left nephrostomy tube reveals a large amount of occult blood with moderate amount of leukocytes with bacteria and WBCs. CT abdomen pelvis with contrast was also complete which revealed bilateral urinary tract decompression by double-pigtail ureteral stent on the right and chronic percutaneous nephrostomy on the left. Pattern of mild concentric Urothelial thickening within the right renal collecting system and ureter most likely due to UTI. Patient also has mildly enlarged retroperitoneal and several peritoneal calcified structures within the abdomen/pelvis junction and pelvis slightly more inferiorly. I spoke with [facility] urology who patient is already established with Dr. Isidro who said that patient would benefit from transferring to [facility] for complicated urinary tract infection most likely urosepsis he is recommending left nephrostomy tube swap and patient needs a new right nephrostomy tube currently there is a right renal stent but he is recommending a new right nephrostomy tube placed. We have started her on Zosyn and vancomycin for urosepsis this is prior to having any urine or CT results given that patient did meet sepsis criteria wanted to initiate antibiotics as soon as possible. Fever significantly improved after Tylenol and Motrin. She was given 1 L of IV fluids in the emergency department. Urine was sent for cultures as well as blood. Patient and patient's son would really like to be transferred to [facility] we are attempting to reach out to hospitalist for transfer. Due to change of shift report was given to oncoming physician who is further managing the patient's care and will work on placement for the patient. Departure - Departure Forms: PCP List
[2023-09-24 07:19] LABS: BASOPHILS # (AUTO) 0.1 10^3/uL (0.0-0.1); BASOPHILS % (AUTO) 0.5 %; EOSINOPHILS # (AUTO) 0.1 10^3/uL (0.0-0.7); EOSINOPHILS % (AUTO) 0.4 %; HCT - HEMATOCRIT 33.5 % (37.0-47.0); HGB - HEMOGLOBIN 10.4 g/dL (12.0-16.0); LYMPHOCYTES # (AUTO) 1.3 10^3/uL (1.5-3.5); LYMPHOCYTES % (AUTO) 8.3 %; MEAN CORPUSCULAR HEMOGLOBIN 30.9 pg (27.0-31.0); MEAN CORPUSCULAR VOLUME 99.4 fL (81.0-99.0); MONOCYTES % (AUTO) 6.5 %; NEUTROPHILS # (AUTO) 13.1 10^3/uL (1.5-6.6); PLT - PLATELET COUNT 261 10^3/uL (130-450); RED BLOOD COUNT 3.37 10^6/uL (4.20-5.40); RED CELL DISTRIBUTION WIDTH 12.9 % (12.0-15.0); WHITE BLOOD COUNT 15.6 x10^3/uL (4.8-10.8)
[2023-09-24 07:52] LABS: ALBUMIN 2.8 g/dL (3.2-5.5); BILIRUBIN,TOTAL 0.4 mg/dL (0.2-1.0); CALCIUM 8.5 mg/dL (8.5-10.3); CREATININE 1.7 mg/dL (0.6-1.3); POTASSIUM 4.2 mmol/L (3.5-4.5); TOTAL PROTEIN 5.6 g/dL (6.4-8.9)
[2023-09-24] MEDS: SODIUM CHLORIDE 0.9% 1,000 ML IV STA (08:19)
[2023-09-24] MEDS: HYDROmorphone 0.5 MG/0.5 ML SYRINGE IVP STA (08:19)
[2023-09-24] MEDS: HYDROmorphone 1 MG/ML CARPUJECT IVP STA (08:23)
--- NOTE | 2023-09-24 09:08 | ED Physician Documentation ---
ED Addendum - Addendum Addendum: 09/24/23 09:04 The patient was signed out to me by Dr. Cleary at change of shift After presenting to the emergency department fevers, chills, rigors, and a history of right kidney stent and left nephrostomy tube. She is a patient of at [facility] urology. The patient on presentation was found to have a significantly elevated white blood cell count at 16,000 with a GFR of 39, creatinine 1.3. Her lactic acid level was 1.7. She was sent for CT scan of the abdomen and pelvis which showed decompressed kidneys. The patient was given vancomycin and Zosyn overnight. Since she is established with [facility], the hope was to get her transferred there. However, they did not have any beds overnight although the urologist did feel she should come over and have her tubes swapped out. The plan was to recheck with [facility] this morning to see how things are going and see if and get the patient transferred. I was able to speak with Dr. Romeo, the on- call hospitalist. Dr. Isidro, the urologist, had already expressed his desire that the patient come over and after reviewing the case, Dr. Romeo did primarily accept the patient in transfer. I have informed the patient who is agreeable to the plan. She is stable right now although her morning labs have shown that her GFR has dropped to 29 and her creatinine is now 1.7. I have noted that she has not received IV fluids while here so I have ordered a liter for her. Final impression: 1. Pyelonephritis 2. Sepsis 3. Acute kidney injury Disposition: Transfer to [facility] in serious condition.
[2023-09-24 09:19] VITALS: BP 105/64; O2SAT 98
[2023-09-24] MEDS ORDERED: VANCOMYCIN INJ 1 GM in SODIUM CHLORIDE 0.9% 250 ML IV SCH (18:00)
== END 2023-09-24 10:27 | disposition short-term general hospital (02) ==
LOC: EDUNIT# → ED 18:15
DX: A41.9 Sepsis, unspecified organism (principal); N12 Tubulo-interstitial nephritis, not specified as acute or chronic; N17.9 Acute kidney failure, unspecified
CPT/HCPCS: 36415; 74176; 80053; 81001; 83605; 83690; 83735; 85025; 87040; 87086; 96365; 96366; 96368; 96375; 99285; A9270; J1170; J3370; 81003; 87077; 87181

== ENCOUNTER 2023-09-24 10:28 | Outpatient (CLI) | payer MEDICARE | END 2023-09-24 23:59 | disposition short-term general hospital (02) | LOC: EMS 10:28 | PROVIDERS: ATTEND Emergency Medicine | DX: N39.0 Urinary tract infection, site not specified (principal); A41.9 Sepsis, unspecified organism | CPT/HCPCS: A0425; A0428 ==

== ENCOUNTER 2023-10-10 12:36 | Outpatient (CLI) | payer MEDICARE ==
[2023-10-10 12:53] LABS: BILIRUBIN,URINE NEGATIVE (NEGATIVE); GLUCOSE, URINE (UA) NEGATIVE (NEGATIVE); KETONES,URINE (UA) NEGATIVE (NEGATIVE); LEUKOCYTE ESTERASE, URINE MODERATE (NEGATIVE); NITRITE,URINE NEGATIVE (NEGATIVE); OCCULT BLOOD,URINE MODERATE (NEGATIVE); PROTEIN,URINE 100 mg/dL (NEGATIVE); UROBILINOGEN,URINE 0.2 (NORMAL) E.U./dL (NORMAL)
[2023-10-10 12:59] LABS: CLARITY,URINE HAZY (CLEAR)
[2023-10-10 13:17] LABS: BACTERIA,URINE Few /HPF (None Seen); SQUAMOUS EPITHELIAL CELL,UR RARE Squamous (<= Few); WBC,URINE >25 /HPF (0-5); YEAST,URINE PRESENT
== END 2023-10-10 12:37 | disposition home or self-care (01) ==
LOC: LAB.R 12:36
PROVIDERS: ATTEND Physician Assistant Medical
DX: N39.0 Urinary tract infection, site not specified (principal)
CPT/HCPCS: 81001; 87086

== ENCOUNTER 2023-10-20 15:04 | Outpatient (CLI) | payer MEDICARE ==
[2023-10-20 15:14] LABS: BILIRUBIN,URINE NEGATIVE (NEGATIVE); GLUCOSE, URINE (UA) NEGATIVE (NEGATIVE); KETONES,URINE (UA) NEGATIVE (NEGATIVE); LEUKOCYTE ESTERASE, URINE LARGE (NEGATIVE); NITRITE,URINE NEGATIVE (NEGATIVE); OCCULT BLOOD,URINE MODERATE (NEGATIVE); PROTEIN,URINE 100 mg/dL (NEGATIVE); UROBILINOGEN,URINE 0.2 (NORMAL) E.U./dL (NORMAL)
[2023-10-20 15:15] LABS: CLARITY,URINE CLOUDY (CLEAR)
[2023-10-20 15:23] LABS: WBC,URINE >25 /HPF (0-5)
[2023-10-20 15:24] LABS: BACTERIA,URINE Moderate /HPF (None Seen); SQUAMOUS EPITHELIAL CELL,UR RARE Squamous (<= Few); YEAST,URINE PRESENT
== END 2023-10-20 15:05 | disposition home or self-care (01) ==
LOC: LAB.R 15:04
PROVIDERS: ATTEND Physician Assistant Medical
DX: N39.0 Urinary tract infection, site not specified (principal)
CPT/HCPCS: 81001; 87086

== ENCOUNTER 2023-12-08 08:00 | Outpatient (CLI) | payer MEDICARE ==
[2023-12-08 21:26] LABS: BACTERIAL VAGINOSIS DNA NEGATIVE (NEGATIVE); CANDIDA GLABRATA DNA NEGATIVE (NEGATIVE); CANDIDA GROUP DNA NEGATIVE (NEGATIVE); CANDIDA KRUSEI DNA NEGATIVE (NEGATIVE); TRICHOMONAS VAGINALIS DNA NEGATIVE (NEGATIVE)
== END 2023-12-08 23:59 | disposition home or self-care (01) ==
LOC: LAB 08:00
PROVIDERS: ATTEND Physician Assistant
DX: N39.0 Urinary tract infection, site not specified (principal); B37.31 Acute candidiasis of vulva and vagina
CPT/HCPCS: 81514; 87086

== ENCOUNTER 2023-12-13 11:55 | Outpatient (CLI) | payer MEDICARE ==
[2023-12-13 12:16] LABS: BASOPHILS # (AUTO) 0.1 10^3/uL (0.0-0.1); BASOPHILS % (AUTO) 0.8 %; EOSINOPHILS # (AUTO) 0.4 10^3/uL (0.0-0.7); EOSINOPHILS % (AUTO) 4.8 %; HCT - HEMATOCRIT 36.8 % (37.0-47.0); HGB - HEMOGLOBIN 11.2 g/dL (12.0-16.0); LYMPHOCYTES # (AUTO) 1.5 10^3/uL (1.5-3.5); LYMPHOCYTES % (AUTO) 19.4 %; MEAN CORPUSCULAR HEMOGLOBIN 27.9 pg (27.0-31.0); MEAN CORPUSCULAR HGB CONC 30.4 g/dL (32.0-36.0); MEAN CORPUSCULAR VOLUME 91.5 fL (81.0-99.0); MEAN PLATELET VOLUME 10.4 fL (7.9-10.8); MONOCYTES # (AUTO) 0.5 10^3/uL (0.0-1.0); MONOCYTES % (AUTO) 6.9 %; NEUTROPHILS # (AUTO) 5.2 10^3/uL (1.5-6.6); NEUTROPHILS % (AUTO) 67.7 %; PLT - PLATELET COUNT 253 10^3/uL (130-450); RED BLOOD COUNT 4.02 10^6/uL (4.20-5.40); RED CELL DISTRIBUTION WIDTH 13.5 % (12.0-15.0); WHITE BLOOD COUNT 7.7 x10^3/uL (4.8-10.8)
[2023-12-13 12:40] LABS: ALBUMIN/GLOBULIN RATIO 0.8 (1.0-2.2); BILIRUBIN,TOTAL 0.4 mg/dL (0.2-1.0); CALCIUM 9.1 mg/dL (8.5-10.3); CREATININE 1.4 mg/dL (0.6-1.3); POTASSIUM 5.2 mmol/L (3.5-4.5); TOTAL PROTEIN 6.7 g/dL (6.4-8.9)
[2023-12-13 12:50] LABS: CA 125 90.4 U/mL (0.5-35.0)
== END 2023-12-13 11:56 | disposition home or self-care (01) ==
LOC: LAB 11:55
PROVIDERS: ATTEND Internal Medicine Hematology & Oncology
DX: C56.9 Malignant neoplasm of unspecified ovary (principal)
CPT/HCPCS: 36415; 80053; 85025; 86304

== ENCOUNTER 2023-12-15 10:22 | Outpatient (CLI) | payer MEDICARE ==
[2023-12-15 10:56] LABS: ALBUMIN 2.9 g/dL (3.2-5.5); CREATININE 1.5 mg/dL (0.6-1.3); POTASSIUM 5.9 mmol/L (3.5-4.5)
== END 2023-12-15 10:23 | disposition home or self-care (01) ==
LOC: LAB 10:22
PROVIDERS: ATTEND Internal Medicine Nephrology
DX: N18.4 Chronic kidney disease, stage 4 (severe) (principal)
CPT/HCPCS: 36415; 80048; 82040; 82570; 84156

== ENCOUNTER 2023-12-18 11:21 | Outpatient (CLI) | payer MEDICARE ==
[2023-12-18 11:54] LABS: CREATININE,URINE 46.5 mg/dL; PROTEIN/CREATININE RATIO,URINE 2.3 (<=0.2)
== END 2023-12-18 11:22 | disposition home or self-care (01) ==
LOC: LAB 11:21
PROVIDERS: ATTEND Internal Medicine Nephrology
DX: N18.4 Chronic kidney disease, stage 4 (severe) (principal)
CPT/HCPCS: 82570; 84156

== ENCOUNTER 2025-01-04 00:40 | Inpatient (IN) ==
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
[2025-01-04] MEDS: ONDANSETRON 4 MG/2 ML VIAL IVP STA (01:04)
[2025-01-04] MEDS: FAMOTIDINE 20 MG/2 ML VIAL IVP STA (01:04)
[2025-01-04] MEDS: SODIUM CHLORIDE 0.9% 1,000 ML IV STA (01:05)
[2025-01-04 01:43] LABS: HCT - HEMATOCRIT 45.1 % (37.0-47.0); HGB - HEMOGLOBIN 13.5 g/dL (12.0-16.0); MEAN PLATELET VOLUME 10.9 fL (7.9-10.8); NRBC ABSOLUTE COUNT (AUTO) 0.00 x10^3/uL; NUCLEATED RED BLOOD CELLS AUTO 0.0 /100WBC; PLT - PLATELET COUNT 272 10^3/uL (130-450); RED CELL DISTRIBUTION WIDTH 14.3 % (12.0-15.0)
[2025-01-04 02:03] LABS: ALT ALANINE AMINOTRANSFERASE < 3 IU/L (10-60); AST ASPARTATE AMINOTRANSFERASE 7 IU/L (10-42); BUN - BLOOD UREA NITROGEN 37 mg/dL (6-20); CARBON DIOXIDE - CO2 18 mmol/L (21-32); CREATININE 1.9 mg/dL (0.6-1.3); GFR - MDRD 25 (>89)
--- NOTE | 2025-01-04 02:15 | CT Report ---
PROCEDURE: CT Abdomen/Pelvis WO INDICATIONS: abd pain and vomiting/diarrhea TECHNIQUE: A CT scan of the abdomen and pelvis was performed without the use of intravenous contrast. Images were recorded and evaluated at appropriate window settings. Reformats: coronal and sagittal. For radiation dose reduction, the following was used: automated exposure control, adjustment of mA and/or kV according to patient size. COMPARISON: CT abdomen pelvis 12/29/2024, 03/09/2023, 11/27/2022, 08/18/2017 FINDINGS: Image quality: Streak metal artifact from bilateral hip arthroplasty limits evaluation of surrounding structures in the pelvis.. Lower chest: Large left and small right pleural effusions with subjacent atelectasis. Liver: No contour-deforming mass. Gallbladder: Surgically absent. Biliary tree: No intrahepatic or extrahepatic dilation, accounting for age. Spleen: No splenomegaly. Pancreas: No pancreatic ductal dilation. Adrenals: No adrenal nodule. Kidneys and ureters: No hydronephrosis. No contour-deforming mass. Similar positioning of bilateral percutaneous nephrostomy tubes. Stomach, bowel and peritoneum: No gastric or small bowel dilation. No abnormal wall thickening. No pathologic free fluid. There is redemonstration of multiple calcified mesenteric masses in the abdomen or pelvis, not significantly changed since prior CT 12/29/2024. Left lower quadrant ostomy. Lymph nodes: No central or retroperitoneal adenopathy. Vessels: No infrarenal aortic aneurysm. Reproductive organs: Unremarkable. Bladder: No abnormal bladder wall thickening. No calcified bladder stones. Pelvic lymph nodes: No adenopathy by size criteria. Bones: No aggressive osseous abnormality. Other: No significant ventral or inguinal hernia. IMPRESSION: 1. Large left and small right pleural effusions with subjacent atelectasis. 2. Stable positioning of bilateral percutaneous nephrostomy tubes. No hydronephrosis. 3. Numerous calcified abdominopelvic peritoneal nodules which have progressively mildly increased in size since remote priors dating back to 2018. Reviewed by: Brittani Mcgee MD, PhD on 01/04/2025 2:12 AM PDT Approved by: Brittani Mcgee MD, PhD on 01/04/2025 2:12 AM PDT Station ID: [id number]
[2025-01-04] MEDS: POTASSIUM CHLOR 10 MEQ/100 ML 10 MEQ/100 ML BAG IV ONE (02:44)
[2025-01-04] MEDS: HYDROmorphone 1 MG/ML CARPUJECT IVP STA (02:55)
[2025-01-04] MEDS: PANTOPRAZOLE 40 MG VIAL IVP STA (02:55)
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
[2025-01-04] MEDS: INSULIN REGULAR, HUMAN 300 UNIT/3 ML PEN SUBQ SCH (05:44)
[2025-01-04] MEDS: PANTOPRAZOLE 40 MG VIAL IV SCH (05:45)
[2025-01-04] MEDS: SODIUM CHLORIDE 0.9% 1,000 ML IV SCH (05:46)
[2025-01-04] MEDS: SODIUM CHLORIDE FLUSH 0.9% 10 ML SYRINGE IVP SCH (09:07)
--- NOTE | 2025-01-04 11:26 | PHARMACY PROGRESS NOTE ---
Best Possible Medication History Admit Date and Time: 01/04/25 0405 Home Medications Medication Instructions Recorded Confirmed Type acetaminophen 500 mg tablet 1 ea PO Q6HR PRN Pain 11/0801/04/25 History (Tylenol Extra Strength) Handicap Placard 02/01/24 09/11/24 History insulin glargine 100 unit/mL (3 15 unit subcut DAILY 1 01/04/25 History mL) subcutaneous pen (Lantus Solostar U-100 Insulin) insulin lispro 100 unit/mL 3 unit subcut TIDWM PRN 01/04/25 History subcutaneous solution (Humalog hyperglycemia U-100 Insulin) 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 sensor (FreeStyle #7 ea 06/04/24 5 Rx Ingrid 3 Sensor device) 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,travel clerk,cont #1 ea 07/04/24 09/11/24 Rx (FreeStyle Ingrid 3 [place]) hydrocodone 5 mg-acetaminophen 325 1 tab PO DAILY PRN pain 01/04/25 01/04/25 History mg tablet [id number] 1 - 2 cap PO QID PRN MEALS 0 01/04/25 01/04/25 History 12,000-38,000-60,000 unit capsule,delayed rel (Creon) Processed by: Nursing Medications reviewed in ED?: Yes Medication History completed: Yes Patient Interview: Pt unable to participate Secondary Source(s): Other family member, Pharmacy records and Insurance records [facility] Statement: As the person ultimately responsible for medication therapy, providers are able to order a medication from an existing home medication list in [facility] via the "Reconcile Routine" prior to Confirmation of that medication by direct support professional home health. Such practice is discouraged except when the physician, in their clinical judgment, deems that a medical need exists for a medication without regard to previous use.
[2025-01-04] MEDS: HYDROmorphone 0.5 MG/0.5 ML SYRINGE IVP PRN (11:48)
[2025-01-04] MEDS: PROCHLORPERAZINE 10 MG/2 ML VIAL IVP PRN (12:23)
--- NOTE | 2025-01-04 13:12 | PROVIDER PROGRESS NOTE ---
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 Ms. Recinos's son, Alfa, is at bedside and provides most of the history as the patient's cognition limits her from fully participating. According to Alfa, patient normally has some level of GI discomfort include bloating, heartburn, and intervals of diarrhea and constipation likely secondary to cancer metastasis and colostomy. However, over the past week, she developed severe nausea, vomiting with a few episodes of coffee ground emesis, abdominal pain, and persistent diarrhea. He states he is unsure of precipitators to her symptoms; she has not eaten anything aside from her usual diet, no trauma to abdomen. He states that over the past week she would sleep most of the day and awake only to vomit, or she would awaken from her abdominal pain. Of note, she previously visited the ED this week on 12/29 for the same complaints. Per documentation, she presented with vomiting and diarrhea in her colostomy and was diagnosed with gastroenteritis. CT abdomen was negative for acute abnormalities, and she recieved IVF and K replacement. She was discharged 01/01 following stability. Alfa again brought her in 01/04 AM for continued nausea, vomiting, abdominal pain, and diarrhea in her colostomy. Per Alfa, it was so severe that the patient requested to be brought in herself. In the ED, there was documented coffee- ground emesis with moderately watery colostomy output. BMP, CBC, and renal function results were comparable to that obtained on 12/29 but notable for K 2.5. Another CT abdomen was performed which continued to demonstrate no acute abnormalities. She was admitted to the Hospitalist service given persistent symptoms and outpatient treatment failure. Today, there is minimal improvement in her abdominal pain following one dose of IV dilaudid. When asked to point where it hurts she is unable to, but she states "all over my belly." She denies nausea and has not vomited since being in the ER. Current Medications Current Medications Current Medications: Current Medications Generic Name Dose Route Start Last Admin Trade Name Freq PRN Reason Stop Dose Admin Hydromorphone HCl 0.5 mg 01/04/25 10:08 01/04/25 11:48 Hydromorphone 0.5 Mg/0.5 Ml Syringe IVP 0.5 mg Q2H PRN Administration Severe Pain (Level 7-10) Sodium Chloride 1,000 mls @ 100 mls/hr 01/04/25 05:07 01/04/25 05:46 Normal Saline 0.9% IV 100 mls/hr .Q10H ALBAN Administration Insulin Human Regular 1 - 5 unit 01/04/25 06:00 01/04/25 12:18 Insulin Regular, Human 300 Unit/3 Ml Pen SUBQ Not Given Q6HR ALBAN Protocol Ondansetron HCl 4 mg 01/04/25 05:07 Ondansetron 4 Mg/2 Ml Vial IVP Q6HR PRN Nausea / Vomiting Pantoprazole Sodium 40 mg 01/04/25 05:00 01/04/25 05:45 Pantoprazole 40 Mg Vial IV 40 mg Q12H ALBAN Administration Prochlorperazine Edisylate 10 mg 01/04/25 05:07 01/04/25 12:23 Prochlorperazine 10 Mg/2 Ml Vial IVP 10 mg Q6HR PRN Administration Nausea / Vomiting Sodium Chloride 10 ml 01/04/25 05:07 Sodium Chloride Flush 0.9% 10 Ml Syringe IVP PRN PRN NEEDED PER PROVIDER ORDERS Sodium Chloride 10 ml 01/04/25 09:00 01/04/25 09:07 Sodium Chloride Flush 0.9% 10 Ml Syringe IVP 10 ml 0100,0900,1700 ALBAN Administration Objective Vital Signs/Intake & Output Reviewed Vital Signs: Yes Vital Signs: Vital Signs x48h Temp Pulse Pulse Resp BP Pulse Ox 01/04/25 11:40 36.5 C 74 20 124/61 94 01/04/25 08:55 36.4 C L 80 18 125/60 98 Intake & Output: Intake & Output 01/01/25 01/02/25 01/03/25 01/04/25 23:59 23:59 23:59 23:59 Intake Total 1100 / 1100 Output Total 100 / 100 Balance 1000 / 1000 Weight (kg) 66 kg Objective General Appearance: positive No acute distress and Lethargic (Easily arousable to verbal stimuli) Eyes Bilateral: positive Normal inspection, PERRL and Conjunctivae nml ENT: positive Dry mucous membranes (Dry lips and oral membranes) Neck: positive Nml inspection, No JVD and Trachea midline Respiratory: positive No respiratory distress and Breath sounds nml Cardiovascular: positive Regular rate & rhythm and Systolic murmur Peripheral Pulses: 1+: Dorsalis pedis (R), 1+: Dorsalis pedis (L), 1+: Posterior tibialis (R) and 1+: Posterior tibialis (L) and 2+: Radial (R) and 2+: Radial (L) Abdomen: positive Non-tender, No distention, Abnml bowel sounds (Hypoactive bowel sounds) and Other (Abdominal binder in place. LLQ colostomy in place, drainage is watery and brown. Bilateral nephrostomies in place, drainage is clear and yellow.) Skin: positive Color nml (Toes to BLE with discoloration, L > R, light purple), No rash, Warm (Cool hands and feet), Dry and Cyanosis (BLE toes, L > R) Extremities: positive Non-tender and Pedal edema (Pitting edema BLE 2-3+, most prominent in feet, shins, ankles, lower thighs); negative Joint swelling Neurologic/Psychiatric: positive Sensation nml and Disoriented to time; negative Disoriented to person, Disoriented to place (Able to state that she was admitted because her stomach wasn't feeling well), Facial droop or Slurred/abnml speech Lab Results 01/04/25 01:40 01/04/25 01:40 Other Labs: Lab Results x24hrs 01/04/25 01/04/25 01/04/25 Range/Units 11:38 05:40 01:40 WBC 10.2 (4.8-10.8) x10^3/uL RBC 4.96 (4.20-5.40) 10^6/uL Hgb 13.5 (12.0-16.0) g/dL Hct 45.1 (37.0-47.0) % MCV 90.9 (81.0-99.0) fL MCH 27.2 (27.0-31.0) pg MCHC 29.9 L (32.0-36.0) g/dL RDW 14.3 (12.0-15.0) % Plt Count 272 (130-450) 10^3/uL MPV 10.9 H (7.9-10.8) fL Neut # (Auto) 8.6 H (1.5-6.6) 10^3/uL Lymph # (Auto) 0.8 L (1.5-3.5) 10^3/uL Becker # (Auto) 0.6 (0.0-1.0) 10^3/uL Eos # (Auto) 0.1 (0.0-0.7) 10^3/uL Baso # (Auto) 0.0 (0.0-0.1) 10^3/uL Absolute Nucleated RBC 0.00 x10^3/uL Nucleated RBC % 0.0 /100WBC Sodium 147 H (135-145) mmol/L Potassium 2.7 L (3.5-4.5) mmol/L Chloride 104 (101-111) mmol/L Carbon Dioxide 18 L (21-32) mmol/L Anion Gap 25.0 H (6-13) BUN 37 H (6-20) mg/dL Creatinine 1.9 H (0.6-1.3) mg/dL Estimated GFR (MDRD) 25 L (>89) Glucose 153 H (74-104) mg/dL POC Whole Bld Glucose 117 128 (70-100) mg/dL Calcium 9.1 (8.5-10.3) mg/dL Magnesium 2.0 (1.7-2.3) mg/dL Total Bilirubin 0.5 (0.2-1.0) mg/dL AST 7 L (10-42) IU/L ALT < 3 L (10-60) IU/L Alkaline Phosphatase 90 (42-121) IU/L Total Protein 6.6 (6.4-8.9) g/dL Albumin 3.2 (3.2-5.5) g/dL Globulin 3.4 (2.1-4.2) g/dL Albumin/Globulin Ratio 0.9 L (1.0-2.2) Lipase 17 (11-82) U/L Stl C. diff Tox B Gene (NEGATIVE) 01/04/25 Range/Units 01:28 WBC (4.8-10.8) x10^3/uL RBC (4.20-5.40) 10^6/uL Hgb (12.0-16.0) g/dL Hct (37.0-47.0) % MCV (81.0-99.0) fL MCH (27.0-31.0) pg MCHC (32.0-36.0) g/dL RDW (12.0-15.0) % Plt Count (130-450) 10^3/uL MPV (7.9-10.8) fL Neut # (Auto) (1.5-6.6) 10^3/uL Lymph # (Auto) (1.5-3.5) 10^3/uL Becker # (Auto) (0.0-1.0) 10^3/uL Eos # (Auto) (0.0-0.7) 10^3/uL Baso # (Auto) (0.0-0.1) 10^3/uL Absolute Nucleated RBC x10^3/uL Nucleated RBC % /100WBC Sodium (135-145) mmol/L Potassium (3.5-4.5) mmol/L Chloride (101-111) mmol/L Carbon Dioxide (21-32) mmol/L Anion Gap (6-13) BUN (6-20) mg/dL Creatinine (0.6-1.3) mg/dL Estimated GFR (MDRD) (>89) Glucose (74-104) mg/dL POC Whole Bld Glucose (70-100) mg/dL Calcium (8.5-10.3) mg/dL Magnesium (1.7-2.3) mg/dL Total Bilirubin (0.2-1.0) mg/dL AST (10-42) IU/L ALT (10-60) IU/L Alkaline Phosphatase (42-121) IU/L Total Protein (6.4-8.9) g/dL Albumin (3.2-5.5) g/dL Globulin (2.1-4.2) g/dL Albumin/Globulin Ratio (1.0-2.2) Lipase (11-82) U/L Stl C. diff Tox B Gene NEGATIVE (NEGATIVE) Diagnostic Imaging Diagnostic Imaging Results: positive Final report reviewed Assessment/Plan Problem List (1) Gastroenteritis: Impression: with Abdominal Pain, Nausea/Vomiting Patient presents with over 1 week of nausea, vomiting, abdominal pain, and watery colostomy output. Lipase, WBC WNL. CT abdomen 12/29 and 01/04 are negative for acute abnormalities. There is insufficient diagnostic evidence for diagnoses of cholecystitis, abdominal aortic aneurysm, ischemic/mesenteric colitis, small bowel obstruction. Her son, Alfa, states that the only medication she is taking regularly is her insulin; no recent medication changes. She hasn't consumed anything new outside of her usual diet and has not had abdominal trauma. Given her metastatic GI history and colostomy, she is at increased risk for gastroenteritis due to impaired mucosal barriers, immunosuppression, and stoma; I agree this is the likely explanation for her symptoms. - Pain management: Although a dose of IV Dilaudid 0.5mg was temporarily effective, she continues to moan/groan in discomfort, demonstrates furrowed brows, and is guarded shortly after. 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 Most recent K is 2.7 on 01/04. Likely secondary to fluid losses and dehydration from limited PO intake, vomiting and diarrhea. - IV Potassium 10 mEq in 4 scheduled doses - Daily BMP (3) PAPITO (acute kidney injury): Impression: According to labs obtained in earlier 2024, baseline BUN and Creatinine likely 20-25 and 1.3-1.5 respectively. As of 01/04 BUN and Crea 37, 1.9 respectively. Suspect PAPITO secondary to fluid losses and dehydration from limited PO intake, vomiting and diarrhea. - Maintenance IVF NS 100ml/h - Daily BMP (4) Type 2 diabetes mellitus: Impression: Per Alfa, insulin is the only medication she has been taking regularly. Her BG is normally regularly monitored with a Ingrid sensor. At home, she gets 15 units of lantus daily and correctional insulin. Her BG here is stable 128, 117 respectively on 01/04. - Given NPO, check BG q6h with NPO correctional insulin Qualifiers: Chronic kidney disease stage: unspecified stage Diabetes mellitus complication detail: with chronic kidney disease Diabetes mellitus complication status: with kidney complications Diabetes mellitus nursing home insulin use: with long wall mining machine helper use Qualified Code(s): E11.22 - Type 2 diabetes mellitus with diabetic chronic kidney disease; Z79.4 - snf (current) use of insulin
[2025-01-04] MEDS: POTASSIUM CHLOR 10 MEQ/100 ML 10 MEQ/100 ML BAG IV SCH (14:51)
[2025-01-04] MEDS ORDERED: MORPHINE PCA 50 MG IV PRN (15:55)
--- NOTE | 2025-01-04 20:09 | ADVANCE CARE PLANNING NOTE ---
Advance Care Planning Planning Encounter Date: 01/04/25 Time: 12:00 Purpose: Establish CODE STATUS and care goals Parties in Attendance: Son and DPOA (Alfa), patient, hospitalist, and DNP student Maida Mancilla Decisional Capacity of the Patient: Patient is laying in bed with eyes closed, occasionally interjects but unable to participate in shared decision making due to pain, fatigue Diagnosis for Encounter (1) Ovarian cancer: Qualifiers: Laterality: unspecified laterality Qualified Code(s): C56.9 - Malignant neoplasm of unspecified ovary Summary: 2019 presented w R hydro, scattered intraperitoneal peritoneal masses, 15 cm pelvic mass, no ascites. s/p ex lap, cystoscopy, b/l ureteral stents 11/19/18. 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 12/27-03/28 s/p neoadjuvant carboplatin/pacitaxel x 5 cycles w minimal response. 04/30/19 BSO, omentectomy, rectosigmoid resection, end colostomy, mass involving rectosigmoid removed, ovaries not identified. ypT3c ypNX. 06/27-05/01 tamoxifen [address] mg bid. Progression on CT. 06/01 partial gastrectomy of mets from lesser curv of stomach. Tumor shaved off pancretic head. 10/29 ex lap for recurrent SBO, ileocolonic bypass and ex bx of peritoneal impants.Says she has an ileostomy and hx of bilateral nephrostomy tubes. 06/01-08/31 letrozole plus ribociblib, 08/31-01/31 trametinib stopped due to progression. Chronic abd pain worse 05/04 and Offered Avastin. Patient opted not to do that. Currently having tumor analysis submitted for genetic analysis to see if there is any other therapy she could qualify for. No active treatment since April 2024. Increasing daily abdominal pain. Encounter Subjective/Patient's Story: Born and raised in the [facility]. and had 10 children. Of her 10 children, only 3 or really active in her life right now. Her son moved in with her prior to her diagnosis for ovarian CA and is helping her get through this. 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 Her in 2007. Her son describes her as alert, oriented. But increasingly miserable due to her chemo treatment. She is getting more more tired of it all. "She is tired of being tired from being sick". That was one of the reason she decided not to do Avastin in April 2024. Over the last few weeks she has had steady daily abdominal pain. Always present but not agonizing. But in the last week abruptly increased. She is unable to participate in shared decision making today. I am asking her son to be her advocate as her DPOA. He states that she was leaning toward hospice. But wanted to explore 1 last option and discussion with the oncologist. That is why she is waiting for genetic analysis of her tumor to see if there is anything more that can be given to her. She is a DNR. He describes increasing weakness, and weight loss in the last year. Constant GI complaints on top of the chronic abdominal pain. He would really like for her to weigh in on this decision. Is she ready for end-of-life care? Or does she still want to proceed further even though she is so miserable?. He would really like to see her pain controlled and hopefully she would be more participatory in decision making. Objective/Medical Story: 84 y old female with PMH ovarian cancer s/p debulking surgery and chemo s/p colostomy and b/l nephrostomy, DM 2 presented to ER due to nausea, vomiting, abdominal pain, diarrhea and coffea ground emitus for 5 days. Denies fever, GOODWIN, chest pain, SOB. Labs showed hypokalemia, PAPITO CT abdomen and pelvis showed no cute abnormalities. It showed colostomy, b/l nephrostomy and B/L pleural effsuin L > R In ER, pt received IVF, K replacement and pain meds As per ER physician ( Dr Kan), he talked to surgeon apron cleaner ( Dr Moore) for consult Pt is admitted due to gastroenteritis, GI bleed, dehydration, hypokalemia, PAPITO, b/l pleural effusion According to Alfa, patient normally has some level of GI discomfort include bloating, heartburn, and intervals of diarrhea and constipation likely secondary to cancer metastasis and colostomy. However, over the past week, she developed severe nausea, vomiting with a few episodes of coffee ground emesis, abdominal pain, and persistent diarrhea. He states he is unsure of precipitators to her symptoms; she has not eaten anything aside from her usual diet, no trauma to abdomen. He states that over the past week she would sleep most of the day and awake only to vomit, or she would awaken from her abdominal pain. Of note, she previously visited the ED this week on 12/29 for the same complaints. Per documentation, she presented with vomiting and diarrhea in her colostomy and was diagnosed with gastroenteritis. CT abdomen was negative for acute abnormalities, and she recieved IVF and K replacement. She was discharged 01/01 following stability. Alfa again brought her in 01/04 AM for continued nausea, vomiting, abdominal pain, and diarrhea in her colostomy. Per Alfa, it was so severe that the patient requested to be brought in herself. In the ED, there was documented coffee- ground emesis with moderately watery colostomy output. BMP, CBC, and renal function results were comparable to that obtained on 12/29 but notable for K 2.5. Another CT abdomen was performed which continued to demonstrate no acute abnormalities. She was admitted to the Hospitalist service given persistent symptoms and outpatient treatment failure. Goals of Care: Focus on comfort and palliation. Not sure if she wants to do chemotherapy. Reduce her pain and control it so that she can have a clearer mind to help decide if she wants to do hospice. Plan: 1. Change CODE STATUS to DNR status. He does have an advanced directive at home and he will bring that in. I would recommend that we fill out a POLST form before discharge. 2. Start her on morphine RESTAURANT HOSTESS at low-dose to see if we can control her pain, but not sedate her, and allow pain to be controlled so that she can participate in her care plan Code Status: Do Not Attempt Resuscitation Time spent on advance care plannin minutes
[2025-01-05] MEDS: SODIUM CHLORIDE FLUSH 0.9% 10 ML SYRINGE IVP PRN (05:06)
[2025-01-05 09:24] LABS: HCT - HEMATOCRIT 36.6 % (37.0-47.0); HGB - HEMOGLOBIN 10.9 g/dL (12.0-16.0); MEAN PLATELET VOLUME 11.0 fL (7.9-10.8); PLT - PLATELET COUNT 190.0 10^3/uL (130-450); RED CELL DISTRIBUTION WIDTH 14.7 % (12.0-15.0)
[2025-01-05 09:48] LABS: CARBON DIOXIDE - CO2 18.0 mmol/L (21-32)
[2025-01-05 09:50] LABS: BUN - BLOOD UREA NITROGEN 33.0 mg/dL (6-20); CREATININE 1.9 mg/dL (0.6-1.3); GFR - MDRD 25.0 (>89)
[2025-01-05] MEDS: DEXTROSE 5% 1,000 ML IV SCH (10:34)
--- NOTE | 2025-01-05 11:11 | PROVIDER PROGRESS NOTE ---
Subjective Subjective Subjective: Patient and patient's son at bedside were spoken with at length. Patient no longer complains of abdominal pain. She has not thrown up since yesterday. She does not feel nauseous at this time. Her appetite has improved. Diet: Full liquids - if tolerates well, will advance Code: DNR Dispo: Likely back home on discharge DVT: Heparin subq Current Medications Current Medications Current Medications: Current Medications Generic Name Dose Route Start Last Admin Trade Name Freq PRN Reason Stop Dose Admin Hydromorphone HCl 0.5 mg 01/04/25 10:08 01/05/25 02:31 Hydromorphone 0.5 Mg/0.5 Ml Syringe IVP 0.5 mg Q2H PRN Administration Severe Pain (Level 7-10) Dextrose 1,000 mls @ 83.333 mls/hr 01/05/25 10:00 01/05/25 10:34 D5w IV 83.33 mls/hr .Q12H ALBAN Administration Insulin Human Regular 1 - 5 unit 01/04/25 06:00 01/05/25 05:37 Insulin Regular, Human 300 Unit/3 Ml Pen SUBQ Not Given Q6HR ALBAN Protocol Ondansetron HCl 4 mg 01/04/25 05:07 Ondansetron 4 Mg/2 Ml Vial IVP Q6HR PRN Nausea / Vomiting Pantoprazole Sodium 40 mg 01/04/25 05:00 01/05/25 05:05 Pantoprazole 40 Mg Vial IV 40 mg Q12H ALBAN Administration Prochlorperazine Edisylate 10 mg 01/04/25 05:07 01/04/25 12:23 Prochlorperazine 10 Mg/2 Ml Vial IVP 10 mg Q6HR PRN Administration Nausea / Vomiting Sodium Chloride 10 ml 01/04/25 05:07 01/05/25 05:06 Sodium Chloride Flush 0.9% 10 Ml Syringe IVP 10 ml PRN PRN Administration NEEDED PER PROVIDER ORDERS Sodium Chloride 10 ml 01/04/25 09:00 01/05/25 10:31 Sodium Chloride Flush 0.9% 10 Ml Syringe IVP Not Given 0100,0900,1700 ALBAN Objective Vital Signs/Intake & Output Reviewed Vital Signs: Yes Vital Signs: Vital Signs x48h Temp Pulse Resp BP Pulse Ox 01/05/25 08:33 97.7 F 72 18 120/56 L 94 01/05/25 05:08 97.7 F 75 20 131/63 H 97 Intake & Output: Intake & Output 01/02/25 01/03/25 01/04/25 01/05/25 23:59 23:59 23:59 23:59 Intake Total 2407 / 2407 917 / 917 Output Total 300 / 300 250 / 250 Balance 2107 / 2107 667 / 667 Weight (kg) 66 kg Objective General Appearance: positive No acute distress and Alert; negative Anxious Eyes Bilateral: positive Normal inspection, PERRL and EOMI ENT: positive ENT inspection nml, Pharynx nml and No signs of dehydration Neck: positive Nml inspection, Thyroid nml and No JVD Respiratory: positive Chest non-tender, No respiratory distress and Breath sounds nml; negative Wheezes, Rales or Rhonchi Cardiovascular: positive Regular rate & rhythm, No gallop and Systolic murmur; negative Tachycardia Peripheral Pulses: 1+: Dorsalis pedis (R), 1+: Dorsalis pedis (L), 1+: Posterior tibialis (R) and 1+: Posterior tibialis (L) and 2+: Radial (R) and 2+: Radial (L) Abdomen: positive Non-tender, No organomegaly, No distention and Other (LLQ colostomy in place; bilateral nephrostomies in place ); negative Guarding or Splenomegaly Back: positive Nml inspection; negative CVA tenderness (R) or CVA tenderness (L) Skin: positive Color nml, No rash, Warm and Dry Extremities: positive Non-tender, Full ROM, Nml appearance and Pedal edema Neurologic/Psychiatric: positive Motor nml, Mood/affect nml, Disoriented to place and Disoriented to time Lab Results 01/05/25 09:06 01/05/25 09:06 Other Labs: Lab Results x24hrs 01/05/25 01/05/25 01/05/25 Range/Units 09:06 05:37 00:11 WBC 7.4 (4.8-10.8) x10^3/uL RBC 3.95 L (4.20-5.40) 10^6/uL Hgb 10.9 L (12.0-16.0) g/dL Hct 36.6 L (37.0-47.0) % MCV 92.7 (81.0-99.0) fL MCH 27.6 (27.0-31.0) pg MCHC 29.8 L (32.0-36.0) g/dL RDW 14.7 (12.0-15.0) % Plt Count 190 (130-450) 10^3/uL MPV 11.0 H (7.9-10.8) fL Sodium 150 H (135-145) mmol/L Potassium 3.0 L (3.5-4.5) mmol/L Chloride 115 H (101-111) mmol/L Carbon Dioxide 18 L (21-32) mmol/L Anion Gap 17.0 H (6-13) BUN 33 H (6-20) mg/dL Creatinine 1.9 H (0.6-1.3) mg/dL Estimated GFR (MDRD) 25 L (>89) Glucose 91 (74-104) mg/dL POC Whole Bld Glucose 84 97 (70-100) mg/dL Calcium 8.3 L (8.5-10.3) mg/dL 01/04/25 01/04/25 Range/Units 18:35 11:38 WBC (4.8-10.8) x10^3/uL RBC (4.20-5.40) 10^6/uL Hgb (12.0-16.0) g/dL Hct (37.0-47.0) % MCV (81.0-99.0) fL MCH (27.0-31.0) pg MCHC (32.0-36.0) g/dL RDW (12.0-15.0) % Plt Count (130-450) 10^3/uL MPV (7.9-10.8) fL Sodium (135-145) mmol/L Potassium (3.5-4.5) mmol/L Chloride (101-111) mmol/L Carbon Dioxide (21-32) mmol/L Anion Gap (6-13) BUN (6-20) mg/dL Creatinine (0.6-1.3) mg/dL Estimated GFR (MDRD) (>89) Glucose (74-104) mg/dL POC Whole Bld Glucose 113 117 (70-100) mg/dL Calcium (8.5-10.3) mg/dL Diagnostic Imaging Diagnostic Imaging Results: positive Final report reviewed Assessment/Plan Problem List (1) Gastroenteritis: Impression: with Abdominal Pain, Nausea/Vomiting Patient presents with over 1 week of nausea, vomiting, abdominal pain, and watery colostomy output. Lipase, WBC WNL. CT abdomen 12/29 and 01/04 are negative for acute abnormalities. There is insufficient diagnostic evidence for diagnoses of cholecystitis, abdominal aortic aneurysm, ischemic/mesenteric colitis, small bowel obstruction. Her son, Alfa, states that the only medication she is taking regularly is her insulin; no recent medication changes. She hasn't consumed anything new outside of her usual diet and has not had abdominal trauma. Given her metastatic GI history and colostomy, she is at increased risk for gastroenteritis due to impaired mucosal barriers, immunosuppression, and stoma. She also has a component of chronic pancretic insufficiency which may be contributing to this. - Pain management: Continue Dilaudid 0.5 mg as needed - will decrease from q2hrs to q4hrs for severe pain. Continue [place] as needed for moderate pain. - Fluid resuscitation: Will switch from 0.9 NS to D5W due to hypernatremia. - Nausea management: IV Ondansetron 4mg q6h and IV Prochlorperazine 10mg q6h - Diet: Full liquids at this time, will advance as tolerated. - Daily BMP to monitor electrolytes (2) Acute hypokalemia: Impression: In ED, K 2.5. Most recent K is 3.0. Likely secondary to fluid losses and dehydration from limited PO intake, vomiting and diarrhea. - Oral postassium replacement; will recheck BMP later today. - Daily BMP (3) PAPITO (acute kidney injury): Impression: According to labs obtained in earlier 2024, baseline BUN and Creatinine likely 20-25 and 1.3-1.5 respectively. Creatinine elevated at 1.9. - Continue IVF - Daily BMP (4) Type 2 diabetes mellitus: Impression: Per Alfa, insulin is the only medication she has been taking regularly. Her BG is normally regularly monitored with a Ingrid sensor. At home, she gets 15 units of lantus daily and correctional insulin. Her BG here is stable 128, 117 respectively on 01/04. - Her sugars have ranged from 77-128 here without any Lantus. Continue low dose sliding scale insulin. Qualifiers: Chronic kidney disease stage: unspecified stage Diabetes mellitus complication detail: with chronic kidney disease Diabetes mellitus complication status: with kidney complications Diabetes mellitus jail insulin use: with rat exterminator use Qualified Code(s): E11.22 - Type 2 diabetes mellitus with diabetic chronic kidney disease; Z79.4 - terminologist (current) use of insulin
[2025-01-05] MEDS: POTASSIUM CHLORIDE 20 MEQ TABLET PO ONE (11:40)
[2025-01-05] MEDS: INSULIN LISPRO 300 UNIT/3 ML PEN SUBQ SCH (11:46)
[2025-01-05] MEDS: LIPASE/PROTEASE/AMYLASE CAPSULE PO PRN (17:57)
[2025-01-05] MEDS: ONDANSETRON 4 MG/2 ML VIAL IVP PRN (19:00)
[2025-01-05 19:27] LABS: BUN - BLOOD UREA NITROGEN 32.0 mg/dL (6-20); CARBON DIOXIDE - CO2 23.0 mmol/L (21-32); CREATININE 1.9 mg/dL (0.6-1.3); GFR - MDRD 25.0 (>89)
[2025-01-05] MEDS: HEPARIN 5,000 UNIT/ML VIAL SUBQ SCH (22:28)
[2025-01-06] MEDS: HYDROcod/ACETAM 5/325 MG TABLET PO PRN (02:42)
[2025-01-06 05:07] LABS: HCT - HEMATOCRIT 34.0 % (37.0-47.0); HGB - HEMOGLOBIN 10.5 g/dL (12.0-16.0); MEAN PLATELET VOLUME 10.9 fL (7.9-10.8); PLT - PLATELET COUNT 167.0 10^3/uL (130-450); RED CELL DISTRIBUTION WIDTH 14.5 % (12.0-15.0)
[2025-01-06 05:25] LABS: BUN - BLOOD UREA NITROGEN 29.0 mg/dL (6-20); CARBON DIOXIDE - CO2 26.0 mmol/L (21-32); CREATININE 1.8 mg/dL (0.6-1.3); GFR - MDRD 27.0 (>89)
[2025-01-06] MEDS ORDERED: MAGNESIUM SULFATE 1 GM/2 ML VIAL IVP STA (07:24)
[2025-01-06] MEDS ORDERED: SODIUM CHLORIDE 0.9% 50 ML IV ONE (08:36)
[2025-01-06] MEDS: POTASSIUM CHLOR 10 MEQ/100 ML 10 MEQ/100 ML BAG IV SCH (08:38)
[2025-01-06] MEDS: LIPASE/PROTEASE/AMYLASE CAPSULE PO SCH (08:38)
[2025-01-06] MEDS: D5.45NS W/20 MEQ KCL 1,000 ML IV SCH (08:38)
[2025-01-06] MEDS: MAGNESIUM OXIDE 400 MG TABLET PO SCH (08:39)
--- NOTE | 2025-01-06 12:02 | PROVIDER PROGRESS NOTE ---
Subjective Subjective Subjective: Patient is a 84-year-old female with a history of stage III serous ovarian adenocarcinoma, with multiple complications including an SBO s/p colostomy, bilateral nephrostomy tube placement who presents with intractable nausea, vomiting, abdominal pain, as well as increased colostomy output. This is all likely attributed to increasing tumor burden. Patient has been on palliative treatment, but has not received any since July. She is hypokalemic and hypomagnesemic, despite replacement. She is not tolerating p.o. intake well. Her son, who is her DPOA, is at bedside. We talked about her overall goals of care. She is a DO NOT RESUSCITATE. We talked extensively about the difference between palliative care and hospice care. It is emphasized that hospice care is end-of-life care, with goals of care shifting from curative intent or medical management to more symptom management. She is not able to fully actively participate in the conversation, but her son is in agreement that hospice care sounds like what they would like moving forward. Social work will be speaking with them regarding choices. Diet: Full liquids - if tolerates well, will advance Code: DNR Dispo: Likely back home on discharge, with Hospice DVT: Heparin subq Current Medications Current Medications Current Medications: Current Medications Generic Name Dose Route Start Last Admin Trade Name Freq PRN Reason Stop Dose Admin Hydrocodone Bitart/Acetaminophen 1 tab 01/05/25 13:29 01/06/25 02:42 Hydrocod/Acetam 5/325 Mg Tablet PO 1 tab DAILY PRN Administration Moderate Pain (Level 4-6) Lipase/Protease/Amylase 2 - 4 cap 01/06/25 09:00 01/06/25 08:38 Lipase/Protease/Amylase Capsule PO 2 cap QID ALBAN Administration Heparin Sodium (Porcine) 5,000 unit 01/05/25 21:00 01/06/25 08:39 Heparin 5,000 Unit/Ml Vial SUBQ 5,000 unit BID ALBAN Administration Hydromorphone HCl 0.5 mg 01/04/25 10:08 01/06/25 07:11 Hydromorphone 0.5 Mg/0.5 Ml Syringe IVP 0.5 mg Q2H PRN Administration Severe Pain (Level 7-10) Potassium Chloride 10 meq in 100 mls @ 100 mls/hr 01/06/25 08:00 01/06/25 11:11 Potassium Chloride IV 01/06/25 11:59 100 mls/hr Q1H ALBAN Administration Potassium Chloride/Dextrose/Sod Cl 1,000 mls @ 83.333 mls/hr 01/06/25 08:00 01/06/25 08:38 D5.45ns W/20 Meq Kcl IV 83.33 mls/hr .Q12H ALBAN Administration Insulin Human Lispro 1 - 5 unit 01/05/25 12:00 01/06/25 08:44 Insulin Lispro 300 Unit/3 Ml Pen SUBQ 2 unit 0800,1200,1700,2100 ALBAN Administration Protocol Magnesium Oxide 400 mg 01/06/25 08:00 01/06/25 08:39 Magnesium Oxide 400 Mg Tablet PO 400 mg DAILYWM ALBAN Administration Ondansetron HCl 4 mg 01/04/25 05:07 01/05/25 19:00 Ondansetron 4 Mg/2 Ml Vial IVP 4 mg Q6HR PRN Administration Nausea / Vomiting Pantoprazole Sodium 40 mg 01/04/25 05:00 01/06/25 07:06 Pantoprazole 40 Mg Vial IV 40 mg Q12H ALBAN Administration Prochlorperazine Edisylate 10 mg 01/04/25 05:07 01/05/25 22:38 Prochlorperazine 10 Mg/2 Ml Vial IVP 10 mg Q6HR PRN Administration Nausea / Vomiting Sodium Chloride 10 ml 01/04/25 05:07 01/06/25 07:06 Sodium Chloride Flush 0.9% 10 Ml Syringe IVP 10 ml PRN PRN Administration NEEDED PER PROVIDER ORDERS Sodium Chloride 10 ml 01/04/25 09:00 01/06/25 08:39 Sodium Chloride Flush 0.9% 10 Ml Syringe IVP 10 ml 0100,0900,1700 ALBAN Administration Objective Vital Signs/Intake & Output Reviewed Vital Signs: Yes Vital Signs: Vital Signs x48h Temp Pulse Resp BP BP Pulse Ox 01/06/25 08:17 97.7 F 76 12 118/60 95 01/06/25 05:17 97.9 F 75 20 121/63 98 Intake & Output: Intake & Output 01/03/25 01/04/25 01/05/25 01/06/25 23:59 23:59 23:59 23:59 Intake Total 2407 / 2407 2814 / 2814 850 / 850 Output Total 300 / 300 600 / 600 450 / 450 Balance 2107 / 2107 2214 / 2214 400 / 400 Weight (kg) 66 kg Objective General Appearance: positive No acute distress and Alert; negative Anxious Eyes Bilateral: positive Normal inspection, PERRL and EOMI ENT: positive ENT inspection nml, Pharynx nml and No signs of dehydration Neck: positive Nml inspection, Thyroid nml and No JVD Respiratory: positive Chest non-tender, No respiratory distress and Breath sounds nml; negative Wheezes, Rales or Rhonchi Cardiovascular: positive Regular rate & rhythm, No gallop and Systolic murmur; negative Tachycardia Peripheral Pulses: 1+: Dorsalis pedis (R), 1+: Dorsalis pedis (L), 1+: Posterior tibialis (R) and 1+: Posterior tibialis (L) and 2+: Radial (R) and 2+: Radial (L) Abdomen: positive Non-tender, No organomegaly, No distention and Other (LLQ colostomy in place; bilateral nephrostomies in place ); negative Guarding or Splenomegaly Back: positive Nml inspection; negative CVA tenderness (R) or CVA tenderness (L) Skin: positive Color nml, No rash, Warm and Dry Extremities: positive Non-tender, Full ROM, Nml appearance and Pedal edema Neurologic/Psychiatric: positive Motor nml, Mood/affect nml, Disoriented to place and Disoriented to time Lab Results 01/06/25 04:41 01/06/25 04:41 Other Labs: Lab Results x24hrs 01/06/25 01/06/25 01/05/25 Range/Units 08:14 04:41 23:35 WBC 6.2 (4.8-10.8) x10^3/uL RBC 3.80 L (4.20-5.40) 10^6/uL Hgb 10.5 L (12.0-16.0) g/dL Hct 34.0 L (37.0-47.0) % MCV 89.5 (81.0-99.0) fL MCH 27.6 (27.0-31.0) pg MCHC 30.9 L (32.0-36.0) g/dL RDW 14.5 (12.0-15.0) % Plt Count 167 (130-450) 10^3/uL MPV 10.9 H (7.9-10.8) fL Sodium 141 (135-145) mmol/L Potassium 2.8 L (3.5-4.5) mmol/L Chloride 108 (101-111) mmol/L Carbon Dioxide 26 (21-32) mmol/L Anion Gap 7.0 (6-13) BUN 29 H (6-20) mg/dL Creatinine 1.8 H (0.6-1.3) mg/dL Estimated GFR (MDRD) 27 L (>89) Glucose 222 H (74-104) mg/dL POC Whole Bld Glucose 192 206 (70-100) mg/dL Calcium 8.3 L (8.5-10.3) mg/dL Magnesium 1.5 L (1.7-2.3) mg/dL 01/05/25 01/05/25 Range/Units 18:50 17:37 WBC (4.8-10.8) x10^3/uL RBC (4.20-5.40) 10^6/uL Hgb (12.0-16.0) g/dL Hct (37.0-47.0) % MCV (81.0-99.0) fL MCH (27.0-31.0) pg MCHC (32.0-36.0) g/dL RDW (12.0-15.0) % Plt Count (130-450) 10^3/uL MPV (7.9-10.8) fL Sodium 144 (135-145) mmol/L Potassium 3.1 L (3.5-4.5) mmol/L Chloride 109 (101-111) mmol/L Carbon Dioxide 23 (21-32) mmol/L Anion Gap 12.0 (6-13) BUN 32 H (6-20) mg/dL Creatinine 1.9 H (0.6-1.3) mg/dL Estimated GFR (MDRD) 25 L (>89) Glucose 236 H (74-104) mg/dL POC Whole Bld Glucose 206 (70-100) mg/dL Calcium 8.6 (8.5-10.3) mg/dL Magnesium (1.7-2.3) mg/dL Diagnostic Imaging Diagnostic Imaging Results: positive Final report reviewed Assessment/Plan Problem List (1) Gastroenteritis: Impression: Patient presents with increased abdominal pain, nausea, vomiting, decreased p.o. intake. Lab work shows hypokalemia and hypomagnesemia consistent with above. Despite aggressive IV replacement, still remains low. Abdomen/pelvis CT completed on admission shows calcified abdominal pelvic peritoneal nodules which have increased in size. Oncology note reviewed from 05/04, when this abdominal pain started. It was attributed to likely tumor progression. Prior to this, patient was on palliative chemotherapy. She has not received any treatment since July of this year. They are awaiting a follow-up for next steps. Continue gentle IV fluid rehydration at this time with D5 with half-normal saline and added potassium. Continue potassium and magnesium [id number] mill equivalents IV potassium ordered, as well as 2 g IV magnesium replacement. Continue Zofran, Compazine as needed. Continue [place] as needed for pain. Initial plan was consultation for palliative care for assistance with symptom management. However, after further discussion with son, plan is likely hospice care. He would like to be choiced and complete informational. health workers aware. (2) Acute hypokalemia: Impression: Potassium still low at 2.8 today. Continue IV replacement as not able to tolerate p.o. intake. Repeat magnesium concurrently. Repeat BMP ordered today. (3) PAPITO (acute kidney injury): Impression: Basline creatinine around 1.5. Creatinine elevated at 1.8. Continue IVF. Daily BMP. (4) Type 2 diabetes mellitus: Impression: Her sugars have ranged from 77-128 here without any Lantus. Continue low dose sliding scale insulin. Qualifiers: Chronic kidney disease stage: unspecified stage Diabetes mellitus complication detail: with chronic kidney disease Diabetes mellitus complication status: with kidney complications Diabetes mellitus penitentiary insulin use: with inside sales trainer use Qualified Code(s): E11.22 - Type 2 diabetes mellitus with diabetic chronic kidney disease; Z79.4 - prison (current) use of insulin (5) Ovarian cancer: Impression: External records were reviewed: There is an oncology note from [facility], Dr. Rueda, from 04/25/2024. Her oncological history is as follows: She has a longstanding history of stage III low-grade ovarian serous carcinoma. Initially diagnosed in 2018. Was complicated by rectosigmoid resection, end colostomy in 2019. She had recurrent SBO in 2021 with ileocolonic bypass completed, as well as peritoneal implants placed. Was also complicated with bilateral nephrostomy tube placements. In 2023, she was on monoclonal antibody therapy, but this was stopped due to progression of her cancer. At her last oncological visit, her provider discussed next options with her, all of which were palliative intent, not curative. Plan for Hospice consult as above. Qualifiers: Laterality: unspecified laterality Qualified Code(s): C56.9 - Malignant neoplasm of unspecified ovary
[2025-01-06] MEDS: MAGNESIUM SULFATE 1 GM in SODIUM CHLORIDE 0.9% 50 ML IV ONE (12:25)
[2025-01-06 16:43] LABS: BUN - BLOOD UREA NITROGEN 29.0 mg/dL (6-20); CARBON DIOXIDE - CO2 25.0 mmol/L (21-32); CREATININE 1.8 mg/dL (0.6-1.3); GFR - MDRD 27.0 (>89)
[2025-01-06] MEDS: POTASSIUM CHLORIDE 20 MEQ TABLET PO ONE (20:15)
[2025-01-07 05:39] LABS: HCT - HEMATOCRIT 37.5 % (37.0-47.0); HGB - HEMOGLOBIN 11.3 g/dL (12.0-16.0); MEAN PLATELET VOLUME 11.0 fL (7.9-10.8); PLT - PLATELET COUNT 138.0 10^3/uL (130-450); RED CELL DISTRIBUTION WIDTH 14.4 % (12.0-15.0)
[2025-01-07 05:55] LABS: BUN - BLOOD UREA NITROGEN 29.0 mg/dL (6-20); CARBON DIOXIDE - CO2 25.0 mmol/L (21-32); CREATININE 1.7 mg/dL (0.6-1.3); GFR - MDRD 29.0 (>89)
[2025-01-07] MEDS ORDERED: LOPERAMIDE 2 MG CAPSULE PO PRN (10:25)
[2025-01-07] MEDS ORDERED: HALOPERIDOL 5 MG/ML VIAL IVP PRN (10:25)
[2025-01-07] MEDS ORDERED: MORPHINE SOL 10 MG/0.5 ML ORAL SYRINGE PO PRN (10:25)
--- NOTE | 2025-01-07 10:30 | PROVIDER PROGRESS NOTE ---
Subjective Prog Note Date Prog Note Date: 01/07/25 Prog Note Time: 10:30 Subjective Subjective: Patient unchanged overnight. Continues to have intermittent abdominal pain. Not eating much. Met with her and her son at bedside today. Confirmed that they are pursuing hospice. The son is can reach out to the hospice company today and arrange for intake. Patient is resting comfortably throughout the rest of the day. Have updated orders to reflect her comfort care status. Patient complains of itching across her back, but otherwise has no acute concerns this morning. Current Medications Current Medications Current Medications: Current Medications Generic Name Dose Route Start Last Admin Trade Name Freq PRN Reason Stop Dose Admin Lipase/Protease/Amylase 2 - 4 cap 01/06/25 09:00 01/07/25 10:23 Lipase/Protease/Amylase Capsule PO Not Given QID ALBAN Haloperidol 0.5 mg 01/07/25 10:25 Haloperidol 5 Mg/Ml Vial IVP Q6H PRN Nausea / Vomiting Hydromorphone HCl 0.5 mg 01/04/25 10:08 01/07/25 04:26 Hydromorphone 0.5 Mg/0.5 Ml Syringe IVP 0.5 mg Q2H PRN Administration Severe Pain (Level 7-10) Insulin Human Lispro 1 - 5 unit 01/05/25 12:00 01/07/25 08:18 Insulin Lispro 300 Unit/3 Ml Pen SUBQ 2 unit 0800,1200,1700,2100 ALBAN Administration Protocol Loperamide HCl 2 mg 01/07/25 10:25 Loperamide 2 Mg Capsule PO Q2H PRN Diarrhea Magnesium Oxide 400 mg 01/06/25 08:00 01/07/25 10:24 Magnesium Oxide 400 Mg Tablet PO Not Given DAILYWM ALBAN Morphine Sulfate 10 mg 01/07/25 10:25 Morphine Enedelia 10 Mg/0.5 Ml Oral Syringe PO Q2HR PRN Moderate Pain (Level 4-6)/SOA Ondansetron HCl 4 mg 01/04/25 05:07 01/05/25 19:00 Ondansetron 4 Mg/2 Ml Vial IVP 4 mg Q6HR PRN Administration Nausea / Vomiting Pantoprazole Sodium 40 mg 01/04/25 05:00 01/07/25 04:31 Pantoprazole 40 Mg Vial IV 40 mg Q12H ALBAN Administration Prochlorperazine Edisylate 10 mg 01/04/25 05:07 01/05/25 22:38 Prochlorperazine 10 Mg/2 Ml Vial IVP 10 mg Q6HR PRN Administration Nausea / Vomiting Sodium Chloride 10 ml 01/04/25 05:07 01/07/25 04:28 Sodium Chloride Flush 0.9% 10 Ml Syringe IVP 10 ml PRN PRN Administration NEEDED PER PROVIDER ORDERS Sodium Chloride 10 ml 01/04/25 09:00 01/07/25 08:21 Sodium Chloride Flush 0.9% 10 Ml Syringe IVP 10 ml 0100,0900,1700 ALBAN Administration Objective Vital Signs/Intake & Output Reviewed Vital Signs: Yes Vital Signs: Vital Signs x48h Temp Pulse Resp BP Pulse Ox 01/07/25 07:49 36.4 C L 79 16 124/57 L 94 Intake & Output: Intake & Output 01/04/25 01/05/25 01/06/25 01/07/25 23:59 23:59 23:59 23:59 Intake Total 2407 / 2407 2814 / 2814 2091 / 2091 981 / 981 Output Total 300 / 300 600 / 600 975 / 975 225 / 225 Balance 2107 / 2107 2214 / 2214 1116 / 1116 756 / 756 Weight (kg) 66 kg Objective Comments/Other: GEN: No acute distress, somnolent, drifts in and out. HEENT: NC/AT, normal appearance of external ears and nose. Hearing baseline. Cardiac: Regular rate and rhythm, no murmurs. No murmurs appreciated. Pulm: Lungs CTA bilaterally, no cough, no wheezes. No rhonchi or rales. Abdomen: Soft, nontender, nondistended. LLQ colostomy in place. Nephrostomy is in place. Extremities: Moves all 4 extremities equally. Normal tone. Neuro: Face symmetric, CN II through XII intact grossly. No clear focal deficits. Psych: Mood euthymic. Normal affect. Lab Results 01/07/25 05:22 01/07/25 05:22 Other Labs: Lab Results x24hrs 01/07/25 01/07/25 01/06/25 Range/Units 07:41 05:22 20:49 WBC 6.7 (4.8-10.8) x10^3/uL RBC 4.09 L (4.20-5.40) 10^6/uL Hgb 11.3 L (12.0-16.0) g/dL Hct 37.5 (37.0-47.0) % MCV 91.7 (81.0-99.0) fL MCH 27.6 (27.0-31.0) pg MCHC 30.1 L (32.0-36.0) g/dL RDW 14.4 (12.0-15.0) % Plt Count 138 (130-450) 10^3/uL MPV 11.0 H (7.9-10.8) fL Sodium 138 (135-145) mmol/L Potassium 3.9 (3.5-4.5) mmol/L Chloride 108 (101-111) mmol/L Carbon Dioxide 25 (21-32) mmol/L Anion Gap 5.0 L (6-13) BUN 29 H (6-20) mg/dL Creatinine 1.7 H (0.6-1.3) mg/dL Estimated GFR (MDRD) 29 L (>89) Glucose 177 H (74-104) mg/dL POC Whole Bld Glucose 188 135 (70-100) mg/dL Calcium 8.0 L (8.5-10.3) mg/dL Magnesium 1.6 L (1.7-2.3) mg/dL 01/06/25 01/06/25 01/06/25 Range/Units 16:34 16:03 11:53 WBC (4.8-10.8) x10^3/uL RBC (4.20-5.40) 10^6/uL Hgb (12.0-16.0) g/dL Hct (37.0-47.0) % MCV (81.0-99.0) fL MCH (27.0-31.0) pg MCHC (32.0-36.0) g/dL RDW (12.0-15.0) % Plt Count (130-450) 10^3/uL MPV (7.9-10.8) fL Sodium 138 (135-145) mmol/L Potassium 3.4 L (3.5-4.5) mmol/L Chloride 108 (101-111) mmol/L Carbon Dioxide 25 (21-32) mmol/L Anion Gap 5.0 L (6-13) BUN 29 H (6-20) mg/dL Creatinine 1.8 H (0.6-1.3) mg/dL Estimated GFR (MDRD) 27 L (>89) Glucose 149 H (74-104) mg/dL POC Whole Bld Glucose 142 116 (70-100) mg/dL Calcium 8.1 L (8.5-10.3) mg/dL Magnesium (1.7-2.3) mg/dL Assessment/Plan Problem List (1) Gastroenteritis: Impression: Patient presented with abdominal pain, initially concern for a gastroenteritis. Now possibly due to tumor progression. Patient has history of ovarian cancer as listed below. Previously on palliative chemotherapy but not had any further treatment since July of this year. She has had fluid rehydration throughout this hospitalization and potassium and magnesium repletion throughout this hospitalization. Despite aggressive repletion, she has not yet normalized on these. Given multiple antiemetics, only able to tolerate scant amounts of oral intake, however. - Patient to pursue hospice intake, now comfort measures only here - Discontinue IV fluids, okay to be without IV - Antiemetics and pain control per comfort measures (2) Acute hypokalemia: Impression: No longer trending. Persistently low despite aggressive repletion. - Pursuing comfort measures only. (3) PAPITO (acute kidney injury): Impression: Creatinine mildly improved to 1.7 from 1.8. Her baseline is around 1.5. - No longer trending in the setting of comfort measures (4) Type 2 diabetes mellitus: Impression: Has remained euglycemic. She has not been eating much. 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 Qualifiers: Chronic kidney disease stage: unspecified stage Diabetes mellitus complication detail: with chronic kidney disease Diabetes mellitus complication status: with kidney complications Diabetes mellitus longterm insulin use: with longterm use Qualified Code(s): E11.22 - Type 2 diabetes mellitus with diabetic chronic kidney disease; Z79.4 - terminal clerk (current) use of insulin (5) Ovarian cancer: Impression: Longstanding history of stage III low-grade ovarian serous carcinoma. Complicated by rectosigmoid resection and end colostomy in 2019. 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 Peritoneal implants placed at that time. Necessitated bilateral nephrostomy tube placement. 2023, she was on a monoclonal antibody therapy but was stopped due to progression of her cancer. She was on palliative chemotherapy up until July 2024, at which point therapies have stopped. There is concern that her abdominal pain is likely malignant in nature, and she is pursuing hospice as above. She followed previously with Dr. Rueda with [facility] with plan for hospice as above Qualifiers: Laterality: unspecified laterality Qualified Code(s): C56.9 - Malignant neoplasm of unspecified ovary
[2025-01-08 10:45] VITALS: TEMP 97.7
--- NOTE | 2025-01-08 11:21 | Discharge Summary ---
"Discharge Summary Admit Date: 01/04/25 Discharge Date: 01/08/25 Discharging Provider: Freedom Gutierrez Primary Care Provider: Melony Cain Code Status: Do Not Attempt Resuscitation DIAGNOSES Discharge Diagnoses with Status of Each Condition: Metastatic ovarian cancer, with progression Patient diagnosed years ago stage III low-grade ovarian serous carcinoma. Complicated by rectosigmoid resection and colostomy in 2019. Had recurrent SBO in 2021 with ileocolonic bypass. Further then had bilateral nephrostomy tube placement. She was being treated with monoclonal antibody therapy but was stopped due to progression of her disease. Started on palliative chemotherapy in 2023 and was continued on that up through July 2024 at which point all therapies have been stopped due to her disease progression further. When she presented with abdominal pain, based on her imaging there was concern that some of her pain is malignant in nature. It is unclear if that is true as some of her pain is resolved. Regardless, she has opted to pursue palliative approach to her care, and transition to hospice. Previously followed with Dr. Rueda with [facility]. - Patient discharging on hospice, intake scheduled tentatively for 01/13 to 01/14 with hospice [facility] Abdominal pain, improved Initially with concern for gastroenteritis, but imaging suggestive of tumor progression and tumor related pain. Initially requiring significant pain management, has not needed opiates for some time. - Now on comfort measures only, discharging to hospice - Oral morphine at discharge Hypokalemia Hypomagnesemia Recurrent here. Likely in the setting of low oral intake. Required multiple IV repletion. 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 PAPITO, improved Baseline creatinine around 1.5. She presented at 1.8, in setting of low oral intake. Improved to 1.7 before we stop trending due to her transition to SQUEAK RATTLE AND LEAK REPAIRER. Type 2 diabetes mellitus She remained euglycemic for the most of his hospitalization. Though she was not eating anything. 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 HPI History of Present Illness: 84 y old female with PMH ovarian cancer s/p debulking surgery and chemo s/p colostomy and b/l nephrostomy, DM 2 presented to ER due to nausea, vomiting, abdominal pain, diarrhea and coffea ground emitus for 5 days. Denies fever, GOODWIN, chest pain, SOB. Labs showed hypokalemia, PAPITO CT abdomen and pelvis showed no cute abnormalities. It showed colostomy, b/l nephrostomy and B/L pleural effsuin L > R In ER, pt received IVF, K replacement and pain meds As per ER physician ( Dr Kan), he talked to surgeon email production consultant ( Dr Moore) for consult Pt is admitted due to gastroenteritis, GI bleed, dehydration, hypokalemia, PAPITO, b/l pleural effusion CONSULTS | PROCEDURES Consultations: Hospice [facility] Procedures: CT abdomen pelvis HOSPITAL COURSE Hospital Course: Patient was admitted with abdominal pain and initial concerns for gastroenteritis. She has abdominal imaging which revealed concern for advancement of her malignancy. She has not been on chemotherapy since July. She had improvement of her pain and nausea, but given this setback and the complications of this hospitalization, the patient and her son have decided to pursue comfort measures only and a palliative approach. They are interested in discharging on hospice. Patient is not needed much by way of PRNs on the day of admission, but is sent with a comfort package including antiemetics, anxiolytics and analgesics. Due to staffing issues, her hospice intake is planned for early next week but not yet scheduled. Her hospitalization was complicated by electrolyte abnormalities which were difficult to treat. She had hypokalemia and hypomagnesemia that were recalcitrant to IV and oral repletion. She had poor diet that exacerbated this issue. Patient states she remained asymptomatic with regard to her electrolytes. Denies any chest pain, palpitations, dizziness. Her POLST was updated prior to discharge to reflect her SQUEAK RATTLE AND LEAK REPAIRER status. Son was sent with the POLST. ALLERGIES Allergies Allergy/AdvReac Type Severity Reaction Status Date / Time amoxicillin AdvReac Mild Rash Verified 01/04/25 00:51 MEDICATIONS Ambulatory Orders Medication Instructions Recorded Confirmed acetaminophen 500 mg tablet 1 ea PO Q6HR PRN Pain 11/0801/04/25 (Tylenol Extra Strength) Handicap Placard 02/01/24 09/11/24 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 sensor (FreeStyle #7 ea 06/04/24 5 Ingrid 3 Sensor device) 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,teradata architect,cont #1 ea 07/04/24 09/11/24 (FreeStyle Ingrid 3 Hye) hydrocodone 5 mg-acetaminophen 325 1 tab PO DAILY PRN pain 09/27/25 09/27/25 mg tablet [id number] 1 - 2 cap PO QID PRN MEALS 0 01/04/25 01/04/25 12,000-38,000-60,000 unit capsule,delayed rel (Creon) loperamide 2 mg capsule 2 mg PO Q2H PRN Diarrhea #7 caps 01/08/25 lorazepam 1 mg tablet 1 mg PO TID PRN anxiety #10 tabs 01/08/25 lorazepam 1 mg tablet (Ativan) 1 mg PO BID PRN anxiety #10 tabs 01/08/25 morphine concentrate 10 mg/0.5 mL 10 mg (0.5 mL) PO Q4 H PRN pain #10 01/08/25 oral syringe (FOR ORAL USE ONLY) ea ondansetron 4 mg disintegrating 4 mg PO Q8H PRN nausea and 01/08/25 tablet vomiting #10 tabs PHYSICAL EXAM AT DISCHARGE Vital Signs: Vital Signs x48h Temp Pulse Resp BP Pulse Ox 01/08/25 14:07 36.5 C 82 18 136/67 H 95 01/08/25 10:45 36.5 C LABS 01/07/25 05:22 01/07/25 05:22 FOLLOW UP Follow Up: Intake with hospice at the [facility] plan tentatively for 01/13 to 01/14 TIME SPENT Time Spent in Discharge (Minutes): 46 Discharge Plan Discharge Patient Disposition: 50 Hospice/Home DC/Xfer Condition: Stable Medically Cleared Date:: 01/08/25 Medically Cleared Comments:: We are awaiting intake from hospice, confirmed that they can take her next week on day of discharge. Prescriptions: New loperamide 2 mg Capsule 2 mg PO Q2H PRN (Reason: Diarrhea) Qty: 7 0RF lorazepam [Ativan] 1 mg tablet 1 mg PO BID PRN (Reason: anxiety) Qty: 10 0RF ondansetron 4 mg tablet,disintegrating 4 mg PO Q8H PRN (Reason: nausea and vomiting) Qty: 10 0RF morphine concentrate 10 mg/0.5 mL syringe 10 mg PO Q4H PRN (Reason: pain) Qty: 10 0RF lorazepam 1 mg tablet 1 mg PO TID PRN (Reason: anxiety) Qty: 10 0RF Continued (DME) FreeStyle Ingrid 3 Sensor Device See Rx Instructions .Route Qty: 7 4RF Rx Instructions: change every 14 days (DME) FreeStyle Ingrid 3 [place] [facility] [place] .Route Qty: 1 0RF Rx Instructions: As directed Dx: Ell.65 acetaminophen [Tylenol Extra Strength] 500 MG tablet 1 ea PO Q6HR PRN (Reason: Pain) hydrocodone-acetaminophen 5-325 mg tablet 1 tab PO DAILY PRN (Reason: pain) Patient Comments: TAKE 1 TABLET BY MOUTH DAILY NEEDED FOR MODERATE PAIN OR PAIN Creon 12,000-38,000 -60,000 unit capsule,delayed release(DR/EC) 1 - 2 cap PO QID PRN (Reason: MEALS) Rx Instructions: TAKES 1 WITH SNACKS, 2 WITH MEALS (DME) Handicap Placard Unit See Rx Instructions .Route Rx Instructions: As directed Discontinued insulin glargine [Lantus Solostar U-100 Insulin] 100 unit/mL (3 mL) insulin pen 15 unit subcut DAILY Rx Instructions: in the morning insulin lispro [Humalog U-100 Insulin] 100 unit/mL solution 3 unit subcut TIDWM PRN (Reason: hyperglycemia) Activity Restrictions: No Restrictions Health Concerns: You were admitted to the hospital because of abdominal pain. Initially was concern for gastroenteritis. I am concerned that your pain was related to advancement of your malignancy. You also had intractable low levels of certain electrolytes and your blood. Despite us giving you back these electrolytes, you continue to have low levels. Given your untreatable cancer, I do not think it is unreasonable for you to transition to a more comfort focused approach. You have engaged with hospice, [facility] is planning to meet you at your home sometime early next week. In the meantime I have sent some pain and anxiety medicines to the local pharmacy. Please be in touch with [facility] if your pain or symptoms are otherwise not controlled. I am hopeful they are able to see you soon to help continue to keep you comfortable and alive to pass naturally at home. Print Language: Hungarian Patient Instructions: Hospice Managing Pain, Hospice- Caring for Your Loved One, Hospice Care- Symptoms of ... Vitals documented within 30 minutes of discharge?: Yes"
[2025-01-08] MEDS: ONDANSETRON ODT 4 MG TABLET TL PRN (12:37)
[2025-01-08 14:08] VITALS: BP 136/67; O2SAT 95
== END 2025-01-08 14:09 | disposition hospice, home (50) | DRG 755 ==
LOC: ED 00:40 → MS2 04:05 → SUATTDRO 04:05 → MS2 04:44
PROVIDERS: ADMIT Internal Medicine; ATTEND Student in an Organized Health Care Education/Training Program